=== PATIENT | female | born 1950 | race Caucasian/White ===

== ENCOUNTER 2018-06-24 19:55 | Outpatient (REF) | payer MEDICARE, OTHER, SELFPAY ==
[2018-06-24 21:14] LABS: ALT 31 U/L (12-78); AST 23 U/L (15-37); Albumin 3.6 g/dL (3.4-5.0); Alkaline Phosphatase 77 U/L (46-116); Anion Gap 8.3 mmol/L (3-11); BUN 11 mg/dL (7-18); Bilirubin, Total 0.4 mg/dL (0.2-1.0); CO2 26.7 mmol/L (21.0-32.0); CREATININE 0.67 mg/dL (0.55-1.02); Calcium 8.6 mg/dL (8.5-10.1); Chloride 104 mmol/L (98-107); Glucose 97 mg/dL (70-100); Potassium 3.7 mmol/L (3.5-5.1); Sodium 139 mmol/L (136-145)
== END 2018-06-24 20:15 ==
LOC: NCHCN 19:55
PROVIDERS: PCP Family Medicine; Visit Provider Family Medicine
DX: R10.9 Unspecified abdominal pain (principal)
CPT/HCPCS: 80053

== ENCOUNTER 2018-11-11 13:35 | Outpatient (REF) | payer MEDICARE, OTHER, SELFPAY ==
--- NOTE | 2018-11-11 11:30 | PAPFT_PTH ---
PATIENT: Leny Lowe LOC: [facility] U#:[id number] AGE/SX: 68/F ROOM: RE11/11/[address]: BALBIR Nieto : 1950 BED: DIS: 11/11/2018 SPEC #: [id number] RECD: 11/11/18 17:37 STATUS: STAN REToni #: [id number] DARIELA: 11/11/18 11:[address]: Sandi Marrero DEPT: [facility] Cytology RECD BY: Holli Barbour ENTERED: 11/11/18 17:38 SP TYPE: PAPFT OTHR DR: Lidia Whelan V Tissues: 1 - CX/ENDOCX FOR PAP SMEARS Procedures: PAP THIN PREP/UVM Screening Comments: [id number]
== END 2018-11-11 13:55 ==
LOC: LBN 13:35
PROVIDERS: PCP Family Medicine; Visit Provider Nurse Practitioner Family
DX: Z12.4 Encounter for screening for malignant neoplasm of cervix (principal)
CPT/HCPCS: 88142

== ENCOUNTER → 2018-12-29 09:08 | Outpatient (BNVA) | payer MEDICARE, OTHER, SELFPAY | PROVIDERS: PCP Family Medicine; Visit Provider Student in an Organized Health Care Education/Training Program | DX: I47.1 Supraventricular tachycardia (principal); I10 Essential (primary) hypertension | CPT/HCPCS: 99213 ==

== ENCOUNTER 2019-01-13 00:20 | Outpatient (CLI) | payer MEDICARE, OTHER, SELFPAY ==
--- NOTE | 2019-01-13 07:45 | DI.MAMMO_ITS ---
SYMPTOM/DIAGNOSIS: SCREENING, Z12.31 MAMMOGRAMS: Mammograms were interpreted according to the usual protocol including computer analysis with CAD system, tomosynthesis and C view imaging. The breast tissue is of moderate radiodensity. There is no evidence of a mass. There are no suspicious calcifications. There has been no significant interval change when compared with prior images. IMPRESSION: No evidence of malignancy, category 1. Yearly screening mammography is recommended. Breast density, Category B. SA ASSESSMENT OF FINDINGS: Negative. Category 1. Patient will receive a letter notifying them of these results. BI-RADS category B. There are scattered areas of fibroglandular density.
== END 2019-01-13 00:40 ==
PROVIDERS: PCP Family Medicine; Visit Provider Nurse Practitioner Family
DX: Z12.31 Encounter for screening mammogram for malignant neoplasm of breast (principal)
CPT/HCPCS: 77063; 77067

== ENCOUNTER 2019-01-28 19:36 | Outpatient (REF) | payer MEDICARE, OTHER, SELFPAY ==
[2019-01-28 19:38] LABS: HCT 44.5 % (36.0-46.0); HGB 14.5 g/dL (12.0-15.5); Mean Corp. HGB Concentration 32.6 g/dL (32.0-36.0); Mean Corpuscular Hemoglobin 28.4 pg (27.0-33.0); Mean Corpuscular Volume 87.3 fL (80-95); Mean Platelet Volume 10.4 fL (8.0-11.0); Platelet Count 317 x1000/uL (130-400); RBC Distribution Width 13.2 % (11.7-14.6); White Blood Cell Count 9.85 k/cumm (4.4-10.8)
[2019-01-28 19:57] LABS: ALT 24 U/L (12-78); AST 17 U/L (15-37); Albumin 3.7 g/dL (3.4-5.0); Alkaline Phosphatase 96 U/L (46-116); Anion Gap 9.5 mmol/L (3-11); BUN 20 mg/dL (7-18); Bilirubin, Total 0.3 mg/dL (0.2-1.0); C-Reactive Protein 0.36 mg/dL (0.0-0.3); CO2 30.5 mmol/L (21.0-32.0); CREATININE 0.73 mg/dL (0.55-1.02); Calcium 9.3 mg/dL (8.5-10.1); Chloride 101 mmol/L (98-107); Glucose 104 mg/dL (70-100); Potassium 3.5 mmol/L (3.5-5.1); Sodium 141 mmol/L (136-145); TSH (W/Ref FT4) 0.79 uIU/mL (0.358-3.74); Total Protein 7.2 g/dL (6.4-8.2)
[2019-01-28 21:09] LABS: ESR 12 MM/HR (0-30)
== END 2019-01-28 19:56 ==
LOC: NCHCN 19:36
PROVIDERS: PCP Family Medicine; Visit Provider Family Medicine
DX: R10.9 Unspecified abdominal pain (principal); R19.7 Diarrhea, unspecified
CPT/HCPCS: 80053; 85027; 85652; 84443; 86140

== ENCOUNTER 2019-05-03 10:11 | Outpatient (REF) | payer MEDICARE, OTHER, SELFPAY ==
[2019-05-03 21:54] LABS: Hemoglobin A1C 5.8 % (4.5-6.2)
[2019-05-03 22:21] LABS: Vitamin B12 599 pg/mL (193-986)
== END 2019-05-03 10:31 ==
LOC: NCHCN 10:11
PROVIDERS: PCP Family Medicine; Visit Provider Family Medicine
DX: R53.83 Other fatigue (principal); R60.0 Localized edema; R53.1 Weakness; R73.09 Other abnormal glucose
CPT/HCPCS: 82607; 83036

== ENCOUNTER 2019-06-21 14:29 | Outpatient (CLI) | payer MEDICARE, OTHER, SELFPAY ==
[2019-06-21 15:04] LABS: Mean Corp. HGB Concentration 33.3 g/dL (32.0-36.0); Mean Corpuscular Volume 87.1 fL (80-95); Mean Platelet Volume 9.7 fL (8.0-11.0); Platelet Count 319 x1000/uL (130-400); RBC 4.82 m/cumm (4.00-5.20); RBC Distribution Width 13.4 % (11.7-14.6); White Blood Cell Count 10.59 k/cumm (4.4-10.8)
[2019-06-21 15:43] LABS: D-Dimer 577 ng/mlFEU (<500)
[2019-06-21 15:47] LABS: ESR 13 mm/hr (0-30)
[2019-06-21 16:02] LABS: BUN 18 mg/dL (7-18); CREATININE 0.76 mg/dL (0.55-1.02); Chloride 102 mmol/L (98-107); Glucose 98 mg/dL (70-100); Potassium 3.5 mmol/L (3.5-5.1); Sodium 140 mmol/L (136-145); TSH (W/Ref FT4) 0.62 uIU/mL (0.36-3.74)
[2019-06-21 16:11] LABS: C-Reactive Protein 0.24 mg/dL (0.0-0.3)
[2019-06-22 11:00] LABS: Lyme Ab w Rflx to Lyme Confirm Negative
[2019-06-23 21:45] LABS: Anaplasma phagocytophilum Negative (Negative); B. miyamotoi PCR Negative (Negative); Babesia divergens/MO-1 Negative (Negative); Babesia duncani Negative (Negative); Babesia microti Negative (Negative); Ehrlichia chaffeensis Negative (Negative); Ehrlichia ewingii/canis Negative (Negative); Ehrlichia muris eauclairensis Negative (Negative)
== END 2019-06-21 14:49 ==
PROVIDERS: PCP Family Medicine; Visit Provider Family Medicine
DX: R06.00 Dyspnea, unspecified (principal); R09.02 Hypoxemia; R53.83 Other fatigue; S20.361A Insect bite (nonvenomous) of right front wall of thorax, initial encounter
CPT/HCPCS: 36415; 80048; 85027; 85652; 87798; 84443; 85379; 86140; 86618

== ENCOUNTER 2019-06-23 03:48 | Outpatient (CLI) | payer MEDICARE, OTHER, SELFPAY ==
[2019-06-23] MEDS: Omnipaque 350 MG/ML 50 ML BTL IJ (08:42)
[2019-06-23] MEDS: Breeza Beverage 473 ML BTL PO ×2 (08:42→08:43)
[2019-06-23] MEDS: Omnipaque 350 MG/ML 100 ML BTL IJ (09:36)
--- NOTE | 2019-06-23 09:37 | DI.CT_ITS ---
SYMPTOM/DIAGNOSIS: ABDOMINAL PAIN R10.9 CT ANGIOGRAPHY CHEST: ABDOMINAL AND PELVIC CT 06/23 CT angiography was performed with multi slice acquisition and multi planar and 3D reconstruction. CT angiography of the chest was performed with additional scanning of the abdomen and pelvis with intravenous infusion of 100 cc Omnipaque 350. 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 No evidence of dissection or aneurysm. No evidence of pulmonary embolic disease, The lungs are clear except for some linear radiodensities in the right lung base which may represent scarring or atelectasis. No pleural effusion. No mediastinal or hilar adenopathy. Incidental calcified lymph nodes noted in left hilum consistent with healed granulomatous disease. No abdominal aortic aneurysm or dissection. Major branch arteries appear intact. Liver, spleen and pancreas are unremarkable except for calcifications in liver and spleen consistent with healed granulomatous disease. There are presumed surgical sutures noted at the esophageal hiatus. There is a small recurrent hiatal hernia. No evidence of obstruction. Adrenals and kidneys appear normal. No abdominal or pelvic adenopathy. Prior cholecystectomy noted. No biliary dilatation seen. Appendix is normal No evidence of diverticulitis or bowel obstruction. 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 There are bilateral fat containing lower abdominal ventral hernias. These lie laterally. There is also complex periumbilical ventral hernia which is predominantly fat containing. A small knuckle of nonobstructed bowel is noted inferiorly. CONCLUSION: 1. No evidence of pulmonary embolic disease. 2. Small apparent recurrent hiatal hernia, presumed prior hiatal hernia repair. 3. Multiple ventral hernias as described above, no evidence of bowel obstruction.
== END 2019-06-23 04:08 ==
PROVIDERS: PCP Family Medicine; Visit Provider Family Medicine
DX: R10.9 Unspecified abdominal pain (principal); K44.9 Diaphragmatic hernia without obstruction or gangrene; K43.9 Ventral hernia without obstruction or gangrene; R91.8 Other nonspecific abnormal finding of lung field; Z98.890 Other specified postprocedural states
CPT/HCPCS: 71275; 74177; J3490; Q9967

== ENCOUNTER → 2019-07-13 14:17 | Outpatient (BNVA) | payer MEDICARE, OTHER, SELFPAY | PROVIDERS: PCP Family Medicine; Visit Provider Psychiatry & Neurology Neurology | DX: Q68.1 Congenital deformity of finger(s) and hand (principal); M54.41 Lumbago with sciatica, right side; M54.42 Lumbago with sciatica, left side; G89.29 Other chronic pain; R20.2 Paresthesia of skin; R53.1 Weakness; I10 Essential (primary) hypertension | CPT/HCPCS: 99215; 99354 ==

== ENCOUNTER → 2019-07-14 00:25 | Outpatient (CLI) | payer MEDICARE, OTHER, SELFPAY ==
--- NOTE | 2019-07-14 08:30 | ETT_ITS ---
*[facility]* *[facility]* [address] [place] [address] Stress Electrocardiography Nate protocol Date of study: 07/14/2019 *PATIENT PRESENTATION* Height: 170.2cm (67in) Blood Pressure: Weight: 100kg (220lb) BSA: 2.21m^2 Ordering physician: Lidia Whelan V Impressions: - Normal study after maximal exercise. - PVCs and PACs noted throughout. Recommendations: Suggest getting 24 hour Holter and echo (if not done). Indication: R06.00. History: REASON FOR TESTING: FOR THE PAST SEVERAL MONTHS, THE PATIENT HAS BEEN EXPERIENCING CHEST PRESSURE , HEAVINESS, OCCASIONAL PAIN, PALPITATIONS AND DIZZINESS. PT STATES THAT SHE HAS HAD SVT IN THE PAST, BUT THAT THIS FEELS DIFFERENT. PT REPORTS A SLIGHT SQUEEZING CHEST PRESSURE, 2/10 AT THE TIME OF TESTING, AND IS ANXIOUS REGARDING THIS TEST. PMH: SVT, HYPERTENSION, HYPOTHYROIDISM, ASTHMA, DEGENERATIVE DISK DISEASE. 7 ABDOMINAL SURGIES, 6 FOR HERNIAS. FAMILY HX: SIBLINGS- HYPERTENSION. MOTHER- CHF. SMOKING: NEVER SMOKER. EXCERCISE: GARDENING, SWIMMING, AND SNOWSHOEING. PT REPORTS NO REAL EXCERCISE IN THE PAST FEW WEEKS DUE TO ANXIETY OVER THESE SYMPTOMS. PMH: Asthma. Risk factors: Family history of coronary artery disease. Hypertension. Obesity. Dyslipidemia. Cholesterol: 245mg/dl. HDL: 71mg/dl. LDL: 156mg/dl. Triglycerides: 152mg/dl. ALLERGIES: BACTRIM, ADHEXIVE, PETROLATUM, PREDNISONE, SULFA, LATEX, IBUPROFEN, HONEY BEE VENOM. MEDICATIONS: MULTIVITAMIN 1 DAILY, MELATONIN 5 MG CTOBACILLUS 3,000 MMU CELLS DAILY, HYDROCODONE 5MG ACETAMINOPHEN 300 MG 1 HS PRN, HYDROCHLOROTHIAZIDE 25 MG DAILY, ADVAIR 100/50 DISKUS 1 PUFF BID, EPINEPHRINE 0.3 MG IM PRN, DILTIAZEM HCL ER120 MG DAILY, VIT. C 500 MG DAILY,ALBUTEROL SULFATE 1 PUFF Q4H PRN. Protocol: Nate protocol. Baseline ECG: LAST EKG 09/11/17- SINUS RHYTHM, HR 79. TODAY'S EKG-SINUS RHYTHM, HR 61. Stress protocol: + +---+ +---+ !Stage !HR !BP (mmHg) !Sat! + +---+ +---+ !Baseline supine !61 !158/96 (117) !---! + +---+ +---+ !Baseline standing !75 !152/100 (117)!96%! + +---+ +---+ !Stage I; 1.7mph, 10degrees; 3 min !128!164/96 (119) !96%! + +---+ +---+ !Stage II; 2.5mph, 12degrees; 3 min!145!184/98 (127) !96%! + +---+ +---+ !Recovery; 1 min !124!192/100 (131)!---! + +---+ +---+ !Recovery; 3 min !82 !182/90 (121) !---! + +---+ +---+ !Recovery; 6 min !78 !154/90 (111) !---! + +---+ +---+ * Stress results: The rate-pressure product for the peak heart rate and blood pressure was 31117yx Hg/min. Stress ECG: EXCERCISE TESTING ENDED IN 6 MINS, 58 SECS DUE TO FATIGUE AND DYSPNEA. MAX HR WAS 176, 115% OF TARGET. HYPERTENSIVE BLOOD PRESSURE RESPONSE. METS: 8.56 ECTOPY: MULTIFOCAL PVC'S WITH RARE APC'S NOTED. THE PVC'S WERE PREVALENT THROUGHOUT TESTING. ANGINA: PT REPORTED SLIGHT SQUEEZING CHEST PRESSURE,2/10 BEFORE TESTING STARTED, AND THESE SYMPTOMS DID NOT CHANGE DURING EXCERCISE. ISCHEMIA: NO ISCHEMIC CHANGES NOTED. FUNCTIONAL CAPACITY: ABOVE AVERGE CAPACITY. Study data: Chelsea Fuentes MD supervised and was readily available during the procedure. This study was interpreted by [facility]. Study status: Routine. Consent: The risks, benefits, and alternatives to the procedure were explained to the patient and informed consent was obtained. Procedure: Initial setup. A baseline ECG was recorded. Surface ECG leads and manual cuff blood pressure measurements were monitored. Heart sounds: Normal. Lung sounds: Normal. Treadmill exercise testing was performed using the Nate protocol. Study completion: The patient tolerated the procedure well and was discharged from the lab. Discharge: The patient left the laboratory in stable condition. Birthdate: Patient birthdate: 1950. Sex: Gender: female. Study date: Study date: 07/14/2019. Study time: 00:01 AM. Signature Documentation: The Stress ECG portion of this study was interpreted by Chelsea Fuentes MD. Electronically signed by Chelsea Fuentes 07/14/2019 09:30
== END ==
PROVIDERS: PCP Family Medicine; Visit Provider Family Medicine
DX: R07.89 Other chest pain (principal); R00.2 Palpitations; R42 Dizziness and giddiness; I10 Essential (primary) hypertension; E03.9 Hypothyroidism, unspecified; E78.5 Hyperlipidemia, unspecified; R06.00 Dyspnea, unspecified
CPT/HCPCS: 93016; 93018; 93017

== ENCOUNTER 2019-07-25 08:00 | Outpatient (CLI) | payer MEDICARE, OTHER, SELFPAY | END 2019-07-25 08:20 | PROVIDERS: PCP Family Medicine; Visit Provider Internal Medicine Cardiovascular Disease | DX: I47.1 Supraventricular tachycardia (principal); Z01.810 Encounter for preprocedural cardiovascular examination; I10 Essential (primary) hypertension | CPT/HCPCS: 99204; 99215; 93005; 93010 ==

== ENCOUNTER → 2019-07-26 11:55 | Outpatient (BNVA) | payer MEDICARE, OTHER, SELFPAY | PROVIDERS: PCP Family Medicine; Referring Provider Family Medicine; Visit Provider Psychiatry & Neurology Neurology | DX: M54.41 Lumbago with sciatica, right side (principal); M54.42 Lumbago with sciatica, left side; G89.29 Other chronic pain; G56.03 Carpal tunnel syndrome, bilateral upper limbs; R20.2 Paresthesia of skin; R53.1 Weakness | CPT/HCPCS: 95923; 99214 ==

== ENCOUNTER 2019-07-27 01:24 | Outpatient (CLI) | payer MEDICARE, OTHER, SELFPAY ==
--- NOTE | 2019-07-27 07:30 | DI.US_ITS ---
APPROVED REPORT EXAM: Comprehensive 2D, Doppler, and color-flow Echocardiogram Patient Location: Out-Patient Clinical Product Manager: Mary Nam [facility] ([place]) Rhythm: Bradycardia Indications: arrythmia, pre op evaluation z01.818 Left Ventricle The left ventricle is normal size. The left ventricular systolic function is normal. The left ventric ular ejection fraction is within the normal range. Mild concentric left ventricular hypertrophy. Ther e is normal LV segmental wall motion. Diastolic function is indeterminate LVEF is 60-65%. Right Ventricle Right ventricle is mildly dilated. The right ventricular systolic function is normal. Atria The left atrium size is normal. The right atrium size is normal. Aortic Valve The Aortic valve is sclerotic. Aortic valve is trileaflet. There is no aortic valvular stenosis. No a ortic regurgitation is present. Mitral Valve Mitral valve leaflets are thickened. No evidence of mitral valve stenosis. Trace mitral regurgitation . Tricuspid Valve Tricuspid valve leaflets are thickened but open well. Mild to moderate tricuspid regurgitation. TR pe ak gradient =34 mmHg The RVSP is between 35 and 40 Pulmonic Valve The pulmonary valve is normal in structure. Mild pulmonic regurgitation. Great Vessels The aortic root is normal in size. The IVC is normal in size and collapses >50% with inspiration. Pericardium no pericardial effusion noted. There is no pleural effusion. 2D Dimensions IVSd 1.2 cm F: 0.6-1.0 LA Volume Index A4C 33.0 mL/m2 PWd 1.2 cm F: 0.6 - 1.0 LA Area A4C 21.0 cm2 LVDd 4.5 cm F: 3.9 - 5.3 LVDs 3.1 cm F: 2.2 - 3.5 Aortic Root 3.4 cm F: 2.7 - 3.3 RA Area A4C 18.0 cm2 LVOT 1.9 cm (M/F) 1.5-2.5 Ascending Aorta 3.4 cm F: 2.3 - 3.1 LVEF (Garza's) 62.3 % F: 54 - 74 FS 30.5 % LV Diastology E Decel Time 216.0 (160-240 msec) E/A Ratio 0.8 MED E' 0.1 (<0.07 m/s) LV E/e MED 13.3 (>14) LAT E' 0.1 (<0.1 m/s) LV E/e LAT 10.3 (>14) Aortic Valve LVOT Peak Kiko. 1.4 m/s LVOT Peak Gr. 7.5 mmHg LVOT Mean Gr. 3.7 mmHg LVOT VTI 0.3 m SAMARA (VTI) 2.1 (2.5-4.5 cm2) SAMARA (VTI) Index 1.0 cm/m2 Mitral Valve MV A Velocity 1.1 (0.4-1.3 m/s) E/A Ratio 0.8 MV Decel. Time 215.8 (160-240 msec) MV PHT 62.6 msec MVA PHT 3.5 cm2 Pulmonary Valve RI End VMAX 111.2 cm/s Tricuspid Valve TR P. Velocity 2.9 m/s TR P. Gradient 34.0 mmHg Conclusion Left Ventricle : The left ventricle is normal size. Mild concentric left ventricular hypertrophy. Saundra stolic function is indeterminate The left ventricular systolic function is normal. There is normal L V segmental wall motion. LVEF is 60-65%. Right Ventricle : Right ventricle is mildly dilated. The right ventricular systolic function is isi l. Atria : The left atrium size is normal. The right atrium size is normal. Aortic Valve : The Aortic valve is sclerotic. Aortic valve is trileaflet. No aortic regurgitation is present. There is no aortic valvular stenosis. Mitral Valve : Mitral valve leaflets are thickened. Trace mitral regurgitation. No evidence of mitral valve stenosis. Tricuspid Valve : Tricuspid valve leaflets are thickened but open well. Mild to moderate tricuspid r egurgitation. TR peak gradient =34mmHg The RVSP is between 35-40mmHg Pulmonic Valve : The pulmonary valve is normal in structure. Mild pulmonic regurgitation. Great Vessels : The aortic root is normal in size. The IVC is normal in size and collapses >50% with inspiration. Pericardium : no pericardial effusion noted.
== END 2019-07-27 01:44 ==
PROVIDERS: PCP Family Medicine; Visit Provider Internal Medicine Cardiovascular Disease
DX: I49.9 Cardiac arrhythmia, unspecified (principal); I51.7 Cardiomegaly; I35.8 Other nonrheumatic aortic valve disorders; I34.8 Other nonrheumatic mitral valve disorders; Z01.818 Encounter for other preprocedural examination
CPT/HCPCS: 93306

== ENCOUNTER 2019-08-25 09:13 | Outpatient (CLI) | payer MEDICARE, OTHER, SELFPAY ==
--- NOTE | 2019-08-25 15:34 | DI.RAD_ITS ---
EXAM: XR ABDOMEN FLAT UPRIGHT CLINICAL HISTORY: ABDOMINAL PAIN COLIC, R10.83 TECHNIQUE: COMPARISON: No exams were available for comparison FINDINGS: Three views of the abdomen were obtained. No gross free intraperitoneal air identified on the uprigh t view. Bowel gas pattern is within normal limits. Vascular clips are noted in the right upper quad rant consistent with prior cholecystectomy. IMPRESSION: No evidence of acute process.
== END 2019-08-25 09:33 ==
PROVIDERS: PCP Family Medicine; Visit Provider Family Medicine
DX: R10.84 Generalized abdominal pain; Z90.49 Acquired absence of other specified parts of digestive tract
CPT/HCPCS: 74019

== ENCOUNTER 2019-08-30 14:17 | Outpatient (REF) | payer MEDICARE, OTHER, SELFPAY ==
[2019-08-30 21:47] LABS: HGB 14.2 g/dL (12.0-15.5); Mean Corpuscular Hemoglobin 28.6 pg (27.0-33.0); Mean Corpuscular Volume 86.7 fL (80-95); Mean Platelet Volume 10.7 fL (8.0-11.0); Platelet Count 308 x1000/uL (130-400); RBC 4.96 m/cumm (4.00-5.20); RBC Distribution Width 12.9 % (11.7-14.6); White Blood Cell Count 7.45 k/cumm (4.4-10.8)
[2019-08-30 22:05] LABS: ALT 22 U/L (14-59); AST 12 U/L (15-37); Albumin 3.8 g/dL (3.4-5.0); Alkaline Phosphatase 63 U/L (46-116); Anion Gap 11.7 mmol/L (3-11); BUN 8 mg/dL (7-18); Bilirubin, Total 0.4 mg/dL (0.2-1.0); C-Reactive Protein 0.19 mg/dL (0.0-0.3); CO2 27.3 mmol/L (21.0-32.0); CREATININE 0.85 mg/dL (0.55-1.02); Calcium 8.7 mg/dL (8.5-10.1); Chloride 100 mmol/L (98-107); Glucose 89 mg/dL (70-100); Potassium 3.6 mmol/L (3.5-5.1); Sodium 139 mmol/L (136-145)
[2019-08-30 22:44] LABS: ESR 10 mm/hr (0-30)
== END 2019-08-30 14:37 ==
LOC: NCHCN 14:17
PROVIDERS: PCP Family Medicine; Visit Provider Family Medicine
DX: R10.84 Generalized abdominal pain (principal)
CPT/HCPCS: 80053; 85027; 85652; 86140

== ENCOUNTER 2019-09-06 01:07 | Outpatient (CLI) | payer MEDICARE, OTHER, SELFPAY ==
[2019-09-06] MEDS: Omnipaque 350 MG/ML 50 ML BTL IJ (08:12)
[2019-09-06] MEDS: Breeza Beverage 473 ML BTL PO (08:12)
[2019-09-06] MEDS: Omnipaque 350 MG/ML 100 ML BTL IJ (09:01)
[2019-09-06] MEDS: Normal Saline Flush 10 ML SYR IVP (09:04)
--- NOTE | 2019-09-06 09:06 | DI.CT_ITS ---
EXAM: CT ABDOMEN PELVIS W CLINICAL HISTORY: ABD PAIN COLIC, R10.83 TECHNIQUE: Images were performed from the lung bases through the ischial tuberosities after IV and o ral contrast. COMPARISON: CT CHEST PE ABD PELVIS W from 06/23/2019 FINDINGS: The lung bases are clear. Liver shows mild enlargement and fatty infiltration. The patient is stat us post cholecystectomy. There is no biliary dilatation. Scattered calcifications are again noted i n the liver and spleen. No renal calculi or hydronephrosis is seen. Again noted are midline abdomin al wall hernias. There is no obstruction of bowel loops extending through the lower portion of the h ernia. There is a normal quantity of stool. The appendix appears normal. There is a fibroid again noted in the uterus. The bladder and ovaries are unremarkable. There are degenerative changes in th e spine. The aorta is normal in diameter. IMPRESSION: Stable appearance of midline abdominal wall hernias. No evidence of bowel obstruction.
== END 2019-09-06 01:27 ==
PROVIDERS: PCP Family Medicine; Visit Provider Family Medicine
DX: R10.83 Colic (principal); R10.9 Unspecified abdominal pain; K76.0 Fatty (change of) liver, not elsewhere classified; R16.0 Hepatomegaly, not elsewhere classified; D25.9 Leiomyoma of uterus, unspecified
CPT/HCPCS: 74177; J3490; Q9967

== ENCOUNTER 2019-10-15 09:14 | Emergency (ER) | payer MEDICARE, OTHER, SELFPAY ==
[2019-10-15 09:21] VITALS: BP 150/83; PULSE 82; RESP 16; TEMP 36.5; O2SAT 99
[2019-10-15 09:33] VITALS: RESP 16
--- NOTE | 2019-10-15 09:33 | ED.GENADUL_ITS ---
Discharge Plan Disposition Patient Disposition: HOME Condition: Stable Discharge Details Chief Complaint: Vascular Clinical Impression: Right leg pain, History of sciatica, Elevated d-dimer Primary Care Provider: Lidia Whelan V ED Provider: Mellisa Garcia Home Meds and New Rx's Prescriptions: New Eliquis 5 mg tablet 10 mg PO BID 2 Days Qty: 8 RF: 0 methocarbamol 500 mg tablet 500 mg PO QID PRN (Reason: muscle spasm) Qty: 14 RF: 0 Continued hydrocodone-acetaminophen [Vicodin] 5-300 mg tablet 1 tab PO HS PRNRF: 0 Adult Probiotic 3 billion cell capsule 3,000 mmu cells PO DAILY RF: 0 diltiazem HCl 60 mg capsule,extended release 12 hr 120 mg PO DAILY RF: 0 epinephrine 0.3 MG/0.3 ML auto-injector 0.3 mg IM PRN RF: 0 albuterol sulfate 8.5 GM HFA aerosol inhaler 1 puff Inhalation Q4H PRN Qty: 1 RF: 0 fluticasone propion-salmeterol [Advair Diskus] 1 EACH blister with device 1 puff Inhalation BID RF: 0 multivitamin [One Daily Multivitamin] 1 EACH tablet 1 ea PO DAILY RF: 0 melatonin 5 MG tablet 5 mg PO HS RF: 0 hydrochlorothiazide 25 MG tablet 25 mg PO DAILY AM RF: 0 Discharge Instructions Instructions: Apixaban (By mouth), Sciatica (ED), Deep Venous Thrombosis (ED), Leg Pain (ED) Additional Instructions: Your d-dimer blood test was elevated which could be indicative of a blood clot in your leg. It is a sensitive blood test but is not specific in that you may not have a blood clot in your leg. This blood test could also be elevated post surgery in your case. Take the blood thinner as directed for the next 2 days. Call the radiology department this weekend to schedule an appointment for a right lower extremity ultrasound on Thursday morning. Continue your Vicodin as needed and directed for pain. Take the muscle relaxer as needed and directed for pain or muscle spasm. Alternate ice and heat several times daily for 20 minutes at a time. Follow-up with your primary care doctor within the next week for reevaluation. Return to the emergency department if you develop any worsening or new concerning symptoms such as chest pain or shortness of breath. Discharge Data Discharge Physician: Mellisa Garcia Medical Decision Making [phone] -- 69-year-old female who is 4 weeks status post an abdominal wall reconstruction for recurrent hernias at [facility] [place] presents for right leg pain for the past month, worse since yesterday. Pain worse with sitting. She does have a history of sciatica and states this has felt similar to sciatica for the past month but is more concerned about possible blood clot since worsening symptoms yesterday. Pain in right posterior thigh, right posterior knee and right posterior lateral leg. She is tender to palpation her right posterior thigh and knee. Negative Homans sign. She is neurovascularly intact. Leg is normal to inspection. No ligamentous instability. No bony deformity. Discussed with patient that based on her symptoms and presentation, I feel that this is most likely musculoskeletal or sciatica. As we are unable to obtain an ultrasound on the weekend, will obtain a d-dimer. It was discussed with patient that this could be false positive or negative. Patient states she cannot take ibuprofen or steroids. Discussed that we may not have significant improvement in pain as we have limited treatment options. Will give a dose of Valium, patient's dose of regular Vicodin as well as place Lidoderm patch. 1120 --d-dimer elevated at 1200. Discussed that this could be elevated postsurgically. Patient had declined Valium due to concern of taking with Vicodin initially. She is now taking Valium at this time. She admits to some relief with Lidoderm patch. Discussed with patient that we can treat with Eliquis over the weekend with plan for her to return on Thursday for Doppler ultrasound of her right lower extremity and she is agreeable with this plan. We will also send a prescription for Robaxin. An order form for right lower extremity ultrasound was completed. Patient was advised to call radiology over the weekend to schedule this appointment for . She was advised to return here at any time if she develops any chest pain or shortness of breath or any other concerns. Medical Records Medical records reviewed: Yes I reviewed the patient's medical records. Lab Data Lab results reviewed: Yes I reviewed the patient's lab results. Labs: Laboratory Tests Range/Units 10/15/19 10:06 D-Dimer (<500) ng/mlFEU 1210 H HPI General Mode of arrival: ambulatory . Date/Time Provider Initiated Documentation: 10/15/19 09:22 . Limitations to Documentation: no limitations . Information obtained by: patient . History of Present Illness 69 year old F presents to the emergency department with the chief complaint of R leg pain , Quality is described as aching and sharp, and is localized to the lower extremity (R). Patient reports radiation to (radiates from R posterior thigh to R lower leg). Patient started experiencing this month(s) (1) and it has been constant. No relieving factors improve symptom(s), Other factors that worsen symptoms (sitting) . Patient notes denies chest pain, cough, diaphoresis, fever/chills, headaches, loss of appetite, malaise, nausea/vomiting, rash, seizure, shortness of breath, syncope and weakness. Patient did receive the following treatments prior to arrival, other (vicodin) Related Data Home Medications Medication Instructions Recorded Confirmed albuterol sulfate 1 puff INHALATION Q4H PRN #1 12/06/13 10/15/19 inhaler epinephrine 0.3 mg IM PRN 12/06/13 10/15/19 hydrochlorothiazide 25 mg PO DAILY AM 09/11/17 10/15/19 fluticasone propion-salmeterol 1 puff INHALATION BID disk 11/26/17 10/15/19 [Advair Diskus] multivitamin [One Daily 1 ea PO DAILY 12/16/17 07/26/19 Multivitamin] melatonin 5 mg PO HS 04/05/18 10/15/19 hydrocodone 5 mg-acetaminophen 300 1 tab PO HS PRN tab 11/11/18 10/15/19 mg tablet lactobacillus combination no.8 3 3,000 mmu cells PO DAILY 11/11/18 10/15/19 billion cell capsule diltiazem HCl 60 mg 120 mg PO DAILY tab-cap 12/29/18 10/15/19 capsule,extended release 12 hr apixaban [Eliquis] 10 mg PO BID 2 Days #8 tab 10/15/19 methocarbamol 500 mg PO QID PRN #14 tab 10/15/19 Previous Rx's Medication Instructions Recorded apixaban [Eliquis] 10 mg PO BID 2 Days #8 tab 10/15/19 methocarbamol 500 mg PO QID PRN #14 tab 10/15/19 Allergies Allergy/AdvReac Type Severity Reaction Status Date / Time sulfamethoxazole Allergy Severe Verified 10/15/19 09:26 [From Bactrim] trimethoprim [From Bactrim] Allergy Severe Verified 10/15/19 09:26 adhesive Allergy Intermediate Skin Rash Verified 10/15/19 09:26 petrolatum,white Allergy Intermediate head ache Verified 10/15/19 09:26 [From Petroleum Jelly] & difficulty breathing prednisone Allergy Intermediate Verified 10/15/19 09:26 sertraline HCl [From Zoloft] Allergy Intermediate Verified 10/15/19 09:26 Sulfa (Sulfonamide Allergy Intermediate Hives Verified 10/15/19 09:26 Antibiotics) latex Allergy Mild Skin Rash Verified 10/15/19 09:26 venom-honey bee Allergy Verified 10/15/19 09:26 ibuprofen AdvReac Intermediate Nausea Verified 10/15/19 09:26 General Stated Complaint: Vascular MARC: 3 Review of Systems All systems reviewed & are unremarkable except as noted in HPI and below Constitutional Constitutional: Reports as per HPI, Denies chills and Denies fever(s) Eyes Eyes: Denies blurry vision ENT Ears, Nose, Mouth, and Throat: Denies dizziness, Denies sore throat and Denies throat swelling Cardiovascular Cardiovascular: Denies chest pain and Denies dyspnea Respiratory Respiratory: Denies cough and Denies dyspnea Gastrointestinal Gastrointestinal: Denies abdominal pain, Denies diarrhea and Denies vomiting Genitourinary Genitourinary: Denies hematuria and Denies dysuria Musculoskeletal Musculoskeletal: Denies back pain, Denies numbness and Reports other (Right leg pain extending from R thigh to R lateral distal leg ) Integumentary/Breasts Skin/Breast: Denies lesions and Denies rash Neurologic Neurologic: Denies dizziness, Denies focal weakness and Denies numbness Allergic/Immunologic Allergic/Immunologic: Denies throat swelling [facility] Medical History Acquired hypothyroidism (Acute 12/20/15) Asthma (Acute) Chronic low back pain with bilateral sciatica (Acute) Degenerative disk disease (Acute 02/09/15) RLQ pain and RLE radiculopathy Essential hypertension (Acute 12/20/15) Family history of breast cancer (Acute 12/08/14) Fibromyalgia (Acute) GERD (gastroesophageal reflux disease) (Chronic) Hyperlipidemia (Acute) IBS (irritable bowel syndrome) (Chronic) ERMA (obstructive sleep apnea) (Chronic) ? unsure on dx Recurrent ventral hernia (Acute) SVT (supraventricular tachycardia) (Acute 12/20/15) Vitamin D deficiency (Acute) Surgical History Cholecystectomy (~2007) History of abdominal hernia (Acute) multiple surgeries; 2 in 2018 Samanta Fundoplication (~2007) x2 Repair of inguinal hernia (09/14/15) Right - done at [facility] S/P carpal tunnel release (Acute) Family History Mother Arthritis Heart disease Father Prostate cancer Sister Diabetes Breast cancer Social History Smoking/Tobacco Use Status: Never Alcohol Intake: current Alcohol Intake frequency: other Details: Very Rarely Drug use: Never Details: cbd oil 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, 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, 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 Do you feel safe in your relationship?: Yes History History 1 Para 0 Hx # Term Pregnancies Multiple births Hx # Pregnancies Ectopic pregnancies AB induced Hx Number of Living Children AB spontaneous Exam Const General: cooperative, healthy appearing and no acute distress HENMT Head: normal to inspection Face and sinus: normal facial exam Eyes General: appearance normal, both eyes and all related structures EOM: EOM intact bilaterally Neck Neck: normal visual inspection and No submandibular swelling Lymphatic: no lymphadenopathy noted Chest Chest: normal inspection of the chest and no tenderness Resp Effort & Inspection: normal respiratory effort and able to speak in complete sentences Auscultation: clear to auscultation bilaterally Cardio Rate: regular rate Rhythm: regular rhythm GI Inspection: normal to inspection Palpation: soft, not firm, not rigid and nontender Auscultation: normal bowel sounds Skin General skin exam: no rashes or lesions noted Neuro General: alert, awake and oriented x3 Cognition: normal cognition Speech: speech normal Motor: muscle tone normal throughout Sensory Exam: no sensory deficits noted Extrem General: no calf tenderness bilaterally and no edema Other: Right lower extremity normal to inspection. No pain with range of motion at right hip, right knee or right ankle. Negative Homans sign. Skin normal to inspection. No evidence of ecchymosis, erythema or edema. Right DP/PT pulses intact. Psych Appearance: grossly normal Mental Status: mental status grossly normal Speech and Movement: speech and movement normal Affect: normal affect Course Vital Signs Vital signs: Vital Signs Temperature 97.7 F 10/15/19 09:21 Pulse 82 10/15/19 09:21 Respiratory Rate 16 10/15/19 09:21 Blood Pressure 150/83 H 10/15/19 09:21 Pulse Oximetry 99 10/15/19 09:21 Temperature 97.7 F 10/15/19 09:21 Temperature Source Skin 10/15/19 09:21 Pulse 82 10/15/19 09:21 Respiratory Rate 16 10/15/19 09:21 Respiratory Effort Non-Labored 10/15/19 09:21 Blood Pressure 150/83 H 10/15/19 09:21 Blood Pressure Position Sitting 10/15/19 09:21 Pulse Oximetry 99 10/15/19 09:21 Oxygen Delivery Method Room Air 10/15/19 09:21 Oxygen Flow Rate 0 10/15/19 09:21 Pain Level 7 10/15/19 09:21
[2019-10-15] MEDS: Lidocaine 5% Patch 1 PATCH TP (10:00)
[2019-10-15] MEDS: HYDROcodone 5/Acetaminophen 325 TAB PO (10:06)
[2019-10-15 10:40] LABS: D-Dimer 1210 ng/mlFEU (<500)
[2019-10-15] MEDS: diazePAM 5 MG TAB PO (11:10)
[2019-10-15 11:18] VITALS: BP 145/93; PULSE 69; RESP 16; TEMP 36.7; O2SAT 95
[2019-10-15 11:45] VITALS: BP 145/93; PULSE 69; RESP 16; TEMP 36.7; O2SAT 95
== END 2019-10-15 11:44 | disposition home or self-care (01) ==
PROVIDERS: Emergency Provider Physician Assistant; PCP Family Medicine
DX: M54.31 Sciatica, right side (principal); R79.1 Abnormal coagulation profile; M79.604 Pain in right leg; I10 Essential (primary) hypertension
CPT/HCPCS: 36415; 99283; 85379

== ENCOUNTER 2019-10-17 00:59 | Outpatient (CLI) | payer MEDICARE, OTHER, SELFPAY ==
--- NOTE | 2019-10-17 08:31 | DI.US_ITS ---
EXAM: US LOWER EXTREMITY VENOUS RT CLINICAL HISTORY: RT LEG PAIN, ELEVATED D-DIMER, H/O ABD SURGERY TECHNIQUE: Right lower extremity venous ultrasound performed using grayscale, color-flow, and spectr al Doppler analysis. COMPARISON: US ECHOCARDIOGRAM from 07/27/2019 FINDINGS: The right common femoral, femoral and popliteal veins demonstrate normal compressibility, augmentatio n, and color Doppler. The posterior tibial veins are patent.The saphenofemoral junction is unremarkab le. No findings of a Salas cyst. IMPRESSION: No DVT. The findings were discussed with the emergency department on the date of the examination.
== END 2019-10-17 01:19 ==
PROVIDERS: PCP Family Medicine; Visit Provider Physician Assistant
DX: M79.604 Pain in right leg (principal); R79.1 Abnormal coagulation profile; I10 Essential (primary) hypertension; I47.1 Supraventricular tachycardia
CPT/HCPCS: 99214; 93971

== ENCOUNTER 2019-10-17 08:55 | Emergency (ER) | payer MEDICARE, OTHER, SELFPAY ==
[2019-10-17 08:56] VITALS: BP 139/89; PULSE 70; RESP 12; TEMP 36.5; O2SAT 97
--- NOTE | 2019-10-17 09:07 | ED.GENADUL_ITS ---
Discharge Plan Disposition Patient Disposition: HOME Condition: Stable Discharge Details Chief Complaint: Vascular Clinical Impression: Leg pain Primary Care Provider: Lidia Whelan V ED Provider: Fide Mcintosh Home Meds and New Rx's Prescriptions: Continued hydrocodone-acetaminophen [Vicodin] 5-300 mg tablet 1 tab PO HS PRNRF: 0 epinephrine 0.3 MG/0.3 ML auto-injector 0.3 mg IM PRN RF: 0 albuterol sulfate 8.5 GM HFA aerosol inhaler 1 puff Inhalation Q4H PRN Qty: 1 RF: 0 multivitamin [One Daily Multivitamin] 1 EACH tablet 1 ea PO DAILY RF: 0 melatonin 5 MG tablet 5 mg PO HS RF: 0 hydrochlorothiazide 25 MG tablet 25 mg PO DAILY AM RF: 0 No Action diltiazem HCl 60 mg capsule,extended release 12 hr 60 mg PO DAILY RF: 0 fluticasone propion-salmeterol [Advair Diskus] 100-50 mcg/dose blister with device 1 puff Inhalation BID PRNRF: 0 Discharge Instructions Instructions: Sciatica (ED), Leg Pain (ED) Additional Instructions: Please return immediately to the emergency department if you develop any new or worsening symptoms, if your condition does not improve as expected, or if you become otherwise concerned. It is extremely important that you call soon as possible to make an appointment to be seen in follow-up for this visit by your primary care doctor and physical therapist. Please attend your scheduled appointment with orthopedics in 2 weeks as planned. You may take Tylenol for your pain, however there is Tylenol in the Vicodin that you are currently taking. As you are taking Vicodin 3 times a day, do not take more than 3000 mg of additional Tylenol per 24-hour period. Referrals: Lidia Whelan MD [Primary Care Provider] - Srini Bauer PT [PHYSICAL THERAPIST] - Medical Decision Making Leny Lowe is a 69-year-old woman with a history of SVT, hyperlipidemia, hypertension, hypothyroidism, GERD, status post abdominal wall reconstruction 1 month ago who presented to the emergency department for follow-up ultrasound after being seen here 2 days ago for leg pain thought to be sciatica but found to have elevated d-dimer. On exam patient is well and nontoxic appearing. There is tenderness to palpation of the lateral right thigh, anterolateral right lower leg and posterior lower leg with worse pain and tenderness in the thigh. There are no overlying skin changes. Full range of motion of the hip and knee. Right lower extremity is neurovascularly intact. Normal gait. Exam ultrasound obtained prior to visit this morning is negative per radiology. Exam/history is not consistent with septic arthritis, myositis, other infectious process, cauda equina syndrome, epidural abscess/hematoma, other cord compression, other acute emergent life/limb threatening etiology of symptoms. Suspect sciatica. Will DC Eliquis, patient has no further dosages. Patient has previously seen physical therapy, plan to restart. Patient has outpatient follow-up with orthopedics in 2 weeks. I had a lengthy discussion with Patient regarding return to emergency department precautions, home care, and importance of outpatient follow-up with PCP, physical therapy, orthopedics. Pt verbalizes understanding of the plan and is amenable. Patient discharged to home with clear plan for outpatient follow- up. All questions were answered. Disposition decision was made weighing the risks and benefits of hospitalization versus outpatient treatment, the risk for further decompensation, and the patient's wishes. Medical Records Medical records reviewed: Yes I reviewed the patient's medical records. Imaging Data Radiologic Study: Attestation: I personally reviewed and interpreted this imaging study as follows: Radiologist's impression: EXAM: US LOWER EXTREMITY VENOUS RT CLINICAL HISTORY: RT LEG PAIN, ELEVATED D-DIMER, H/O ABD SURGERY TECHNIQUE: Right lower extremity venous ultrasound performed using grayscale, color-flow, and spectral Doppler analysis. COMPARISON: US ECHOCARDIOGRAM from 07/27/2019 FINDINGS: The right common femoral, femoral and popliteal veins demonstrate normal compressibility, augmentation, and color Doppler. The posterior tibial veins are patent.The saphenofemoral junction is unremarkable. No findings of a Salas cyst. IMPRESSION: No DVT. The findings were discussed with the emergency department on the date of the examination. HPI General Mode of arrival: ambulatory . Date/Time Provider Initiated Documentation: 10/17/19 09:07 . Limitations to Documentation: no limitations . Information obtained by: patient, RN notes reviewed and old records reviewed . HPI Narrative: Leny Lowe is a 69-year-old woman with a history of SVT, hyperlipidemia, hypertension, GERD, hypothyroidism, 1 month status post abdominal reconstruction for hernias presenting to the emergency department with leg pain. Patient reports that she has chronic low back pain. She reports that she has had several days of worsening pain in her right hip, right lateral thigh, and posterior to her right knee. Patient reports that she has also had some sharp pain in the lateral aspect of her right lower leg. She was seen here for this 10/15, where she had elevated d-dimer with no ultrasound available. She was started on Eliquis at that time, with plan to return to the emergency department this morning for ultrasound. Patient did have ultrasound this morning, which showed no DVT. Patient reports that she took her last dose of Eliquis this morning. Patient states that she is currently having pain in her lateral right thigh. She denies any swelling or rash of her legs bilaterally. Patient reports no worsening of pain since she was seen here 2 days ago. Patient was prescribed a muscle relaxant at that visit, which she reports she has not been taking because she does not like the way it makes her feel. She states that she has been eating and drinking as usual, no recent illness. Patient reports that she has been able to ambulate normally. Patient reports that pain is much worse with sitting, and is somewhat relieved by moving. Patient reports that she has an appointment with orthopedics in 2 weeks for right sided hip bursitis. Patient reports that she has been in physical therapy previously with [facility], but did stop when she had surgery. Patient reports that her chronic back pain has been at baseline and not worse. She denies any other pain. She denies fevers, shortness of breath, cough, vomiting, diarrhea, constipation, urinary hesitancy or urinary incontinence, numbness, weakness. Related Data Home Medications Medication Instructions Recorded Confirmed albuterol sulfate 1 puff INHALATION Q4H PRN #1 12/06/13 10/17/19 inhaler epinephrine 0.3 mg IM PRN 12/06/13 10/17/19 hydrochlorothiazide 25 mg PO DAILY AM 09/11/17 10/17/19 multivitamin [One Daily 1 ea PO DAILY 12/16/17 10/17/19 Multivitamin] melatonin 5 mg PO HS 04/05/18 10/17/19 hydrocodone 5 mg-acetaminophen 300 1 tab PO HS PRN tab 11/11/18 10/17/19 mg tablet diltiazem HCl 60 mg 60 mg PO DAILY tab-cap 10/17/19 10/17/19 capsule,extended release 12 hr fluticasone 100 mcg-salmeterol 50 1 puff INHALATION BID PRN disk 10/17/19 10/17/19 mcg/dose blistr powdr for inhalation Allergies Allergy/AdvReac Type Severity Reaction Status Date / Time sulfamethoxazole Allergy Severe Verified 10/17/19 11:28 [From Bactrim] trimethoprim [From Bactrim] Allergy Severe Verified 10/17/19 11:28 adhesive Allergy Intermediate Skin Rash Verified 10/17/19 11:28 petrolatum,white Allergy Intermediate head ache Verified 10/17/19 11:28 [From Petroleum Jelly] & difficulty breathing prednisone Allergy Intermediate Verified 10/17/19 11:28 sertraline HCl [From Zoloft] Allergy Intermediate Verified 10/17/19 11:28 Sulfa (Sulfonamide Allergy Intermediate Hives Verified 10/17/19 11:28 Antibiotics) latex Allergy Mild Skin Rash Verified 10/17/19 11:28 venom-honey bee Allergy Verified 10/17/19 11:28 ibuprofen AdvReac Intermediate Nausea Verified 10/17/19 11:28 General Stated Complaint: Vascular MARC: 4 Review of Systems Narrative: Constitutional: denies fevers Eyes: denies eye pain ENT: denies ear pain, dental pain, sore throat Cardiovascular: denies chest pain Respiratory: denies SOB, cough GI: denies abdominal pain, vomiting, diarrhea, constipation : denies flank pain, urinary hesitancy, urinary incontinence MSK: denies neck pain, arthralgias, reports chronic low back pain, right leg pain as per HPI Skin: denies rash Neuro: denies headaches, numbness, weakness [facility] Medical History Acquired hypothyroidism (Acute 12/20/15) Asthma (Acute) Chronic low back pain with bilateral sciatica (Acute) Degenerative disk disease (Acute 02/09/15) RLQ pain and RLE radiculopathy Essential hypertension (Acute 12/20/15) Family history of breast cancer (Acute 12/08/14) Fibromyalgia (Acute) GERD (gastroesophageal reflux disease) (Chronic) Hyperlipidemia (Acute) IBS (irritable bowel syndrome) (Chronic) ERMA (obstructive sleep apnea) (Chronic) ? 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 Do you feel safe at home: Yes Do you feel safe in your relationship?: Yes History History 1 Para 0 Hx # Term Pregnancies Multiple births Hx # Pregnancies Ectopic pregnancies AB induced Hx Number of Living Children AB spontaneous Exam Narrative Exam Narrative: Constitutional: well and nmh-figyc-yxpyjcver, pleasant, conversing normally HENT: head atraumatic/normocephalic/normal inspection, mucous membranes moist Eyes: conjunctiva normal, sclera normal, pupils 3mm b/l Neck: no stridor, normal ROM, trachea midline Resp: normal work of breathing Cardio: normal rate, normal rhythm, DP and PT pulse in the right foot intact Skin: warm, dry, normal color, no rash Neuro: alert, not altered, grossly non-focal, normal tone, normal gait Ext: right foot warm and well-perfused, normal sensation, no rash of the right lower extremity, no edema of the right lower extremity, mild posterior calf tenderness to palpation on the right, also with anterolateral tenderness to palpation of the lower leg, worst pain is lateral aspect of right thigh. No crepitus, no overlying skin changes. Full range of motion of the hip and knee Psych: normal mood, normal affect, normal behavior Course Vital Signs Vital signs: Vital Signs Temperature 36.5 C 10/17/19 08:56 Pulse 70 10/17/19 08:56 Respiratory Rate 12 10/17/19 08:56 Blood Pressure 139/89 10/17/19 08:56 Pulse Oximetry 97 10/17/19 08:56 Temperature 36.5 C 10/17/19 08:56 Temperature Source Temporal Artery Scan 10/17/19 08:56 Pulse 70 10/17/19 08:56 Respiratory Rate 12 10/17/19 08:56 Blood Pressure 139/89 10/17/19 08:56 Blood Pressure Position Sitting 10/17/19 08:56 Pulse Oximetry 97 10/17/19 08:56 Oxygen Delivery Method Room Air 10/17/19 08:56 Oxygen Flow Rate 0 10/17/19 08:56
== END 2019-10-17 09:55 | disposition home or self-care (01) ==
PROVIDERS: Emergency Provider Student in an Organized Health Care Education/Training Program; PCP Family Medicine
DX: R79.1 Abnormal coagulation profile (principal); M79.651 Pain in right thigh

== ENCOUNTER 2019-10-25 09:44 | Outpatient (CLI) | payer MEDICARE, OTHER, SELFPAY ==
--- NOTE | 2019-10-25 13:41 | DI.RAD_ITS ---
EXAM: XR LUMBAR SPINE COMPLETE INDICATION: LUMBAR RADICULOPATHY M54.16. COMPARISON: No exams were available for comparison TECHNIQUE: 2D digital imaging was performed. FINDINGS: No compression fractures are seen. There is multilevel iysf-bm-lmvhuulm disc space narrowing and sma ll endplate osteophytes. There is a slight degenerative scoliosis convex toward the right. There are mild degenerative changes of both SI joints. No spondylolysis or spondylolisthesis is seen. There are mild facet degenerative changes, greatest at L4-5. IMPRESSION: Mohl-ht-tkrqcyhw degenerative disc changes throughout.
== END 2019-10-25 10:04 ==
PROVIDERS: PCP Family Medicine; Visit Provider Family Medicine
DX: M54.5 Low back pain (principal); M54.16 Radiculopathy, lumbar region; M51.16 Intervertebral disc disorders with radiculopathy, lumbar region
CPT/HCPCS: 72110

== ENCOUNTER → 2019-10-28 08:55 | Outpatient (BNVA) | payer MEDICARE, OTHER, SELFPAY | PROVIDERS: PCP Physical Therapist; Referring Provider Family Medicine; Visit Provider Student in an Organized Health Care Education/Training Program | DX: M54.16 Radiculopathy, lumbar region (principal); I10 Essential (primary) hypertension | CPT/HCPCS: 99203; 99214 ==

== ENCOUNTER 2019-11-01 01:34 | Outpatient (CLI) | payer MEDICARE, OTHER, SELFPAY ==
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
== END 2019-11-01 01:54 ==
PROVIDERS: PCP Physical Therapist; Visit Provider Family Medicine
DX: M54.16 Radiculopathy, lumbar region (principal); R29.898 Other symptoms and signs involving the musculoskeletal system; M79.604 Pain in right leg; M79.605 Pain in left leg; M51.16 Intervertebral disc disorders with radiculopathy, lumbar region; M47.26 Other spondylosis with radiculopathy, lumbar region
CPT/HCPCS: 72148

== ENCOUNTER 2019-12-01 02:20 | Outpatient (CLI) | payer MEDICARE, OTHER, SELFPAY ==
--- NOTE | 2019-12-01 08:58 | DI.CT_ITS ---
EXAM: CT ABDOMEN AND PELVIS W CLINICAL HISTORY: LT-SIDED ABDOMINAL PAIN R10.9, S/P MULTIPLE HERNIA REPAIRS NOW WITH SOME TEARING P AIN, LT MID ABDOMEN TECHNIQUE: Imaging Protocol: Axial computed tomography images with coronal and sagittal reformatted images were created and reviewed CONTRAST MATERIAL: Intravenous: Omnipaque 350 Contrast volume:100 mL Oral: Yes COMPARISON: CT ABDOMEN PELVIS W from 09/06/2019 FINDINGS: ABDOMEN: Lung Bases: Scarring or or atelectasis. Liver: Mild hepatomegaly and hepatic steatosis. Prior granulomatous disease. No measurable mass. Portal, Superior Mesenteric, and Splenic Veins: Unremarkable. Gallbladder and Biliary Tract: Status post cholecystectomy. No biliary ductal dilatation. Pancreas: Normal density, no abnormal calcifications or inflammatory process. Spleen: Splenic granuloma. Adrenals: No masses seen. Kidneys: Normal size, contour and axis. No radiodense stones or obstructive uropathy. No masses seen. Abdominal Aorta: Mild atherosclerosis. No aneurysmal dilatation. Bowel: No obstruction or bowel wall thickening. No evidence of acute appendicitis. Small hiatal miguel angel ia. Peritoneal Cavity: No ascites, collection or mesenteric inflammatory response. Lymph Nodes: Within normal limits. Bones: Degenerative changes. Soft Tissues: In the midline in the anterior abdominal wall, there is an encapsulated fluid collectio n measuring 6.6 cm transverse x 1.1 cm AP x 7.7 cm craniocaudad. This may represent an abscess, or s eroma or hematoma. There is mild soft tissue stranding in the soft tissues in the midline abdominal wall. PELVIS: Bladder: Symmetric distention, no gross wall thickening. Reproductive Organs: Unremarkable as visualized. Lymph Nodes: Within normal limits. Bones: Degenerative changes. IMPRESSION: 1. 6.6 cm x 1.1 cm x 7.7 cm encapsulated fluid collection in the midline anterior abdominal wall. Th is may represent an abscess, seroma or hematoma. 2. Mild hepatomegaly and hepatic steatosis. Incidental Findings Critical Findings DATA REPOSITORY: All CT scans at this facility are submitted to the National Radiology Data Registry (NRDR) Dose Index Registry (DIR) with the [employer] (ACR). RADIATION OPTIMIZATION: All CT scans at this facility use at least one of these dose optimization te chniques: automated exposure control; mA and/or kV adjustment per patient size (includes targeted exa ms where dose is matched to clinical indication); or iterative reconstruction.
[2019-12-01] MEDS: Breeza Beverage 473 ML BTL PO ×2 (09:03→09:04)
[2019-12-01] MEDS: Omnipaque 350 MG/ML 50 ML BTL IJ (09:03)
[2019-12-01 09:30] LABS: CREATININE 0.74 mg/dL (0.55-1.02)
[2019-12-01] MEDS: Omnipaque 350 MG/ML 100 ML BTL IJ (10:38)
== END 2019-12-01 02:40 ==
PROVIDERS: PCP Family Medicine; Visit Provider Surgery
DX: R10.32 Left lower quadrant pain (principal); R16.0 Hepatomegaly, not elsewhere classified; K76.0 Fatty (change of) liver, not elsewhere classified; Z90.49 Acquired absence of other specified parts of digestive tract; K44.9 Diaphragmatic hernia without obstruction or gangrene; R19.00 Intra-abdominal and pelvic swelling, mass and lump, unspecified site; I10 Essential (primary) hypertension
CPT/HCPCS: 74177; 82565; J3490; Q9967

== ENCOUNTER 2020-01-11 08:21 | Outpatient (CLI) | payer MEDICARE, OTHER, SELFPAY ==
[2020-01-11] MEDS: Omnipaque 350 MG/ML 100 ML BTL IJ (11:59)
--- NOTE | 2020-01-11 12:00 | DI.CT_ITS ---
EXAM: CT CHEST PE CTA CLINICAL HISTORY: CHEST TIGHTNESS, R07.89; COUGH, R05; CALF PAIN, M79.669. TECHNIQUE: Imaging Protocol: Axial CT angiography was performed with multi-slice acquisition and mu lti-planar and/or 3D reconstructions. CONTRAST MATERIAL: Intravenous: Omnipaque 350 Contrast volume:100 mL COMPARISON: CT ABDOMEN PELVIS W from 12/01/2019 FINDINGS: Pulmonary Arteries: No evidence of filling defect to suggest pulmonary emboli. Tracheobronchial tree: Patent where visualized. Mediastinum and Lidia: No dominant adenopathy or fluid collection. There is a moderate size hiatal her priya. Pulmonary parenchyma: No consolidation or dominant measurable mass. No architectural distortion. Pleura: No effusion or pneumothorax. Heart: The heart is not dilated. No coronary artery calcifications are seen. No pericardial effusion. Aorta: Thoracic aorta non-dilated. No dissection. Atherosclerosis. Upper abdomen: Unremarkable. Bones: Degenerative changes. IMPRESSION: No pulmonary embolus, thoracic aortic dissection or aneurysm. No acute pulmonary process. DATA REPOSITORY: All CT scans at this facility are submitted to the National Radiology Data Registry (NRDR) Dose Index Registry (DIR) with the [employer] (ACR). RADIATION OPTIMIZATION: All CT scans at this facility use at least one of these dose optimization te chniques: automated exposure control; mA and/or kV adjustment per patient size (includes targeted exa ms where dose is matched to clinical indication); or iterative reconstruction.
== END 2020-01-11 08:41 ==
PROVIDERS: PCP Family Medicine; Visit Provider Family Medicine
DX: R07.89 Other chest pain (principal); R05 Cough; M79.669 Pain in unspecified lower leg
CPT/HCPCS: 71275; J3490

== ENCOUNTER 2020-03-05 11:54 | Outpatient (CLI) | payer MEDICARE, OTHER, SELFPAY ==
[2020-03-06 18:06] LABS: COVID-19 RT-PCR Result NEGATIVE (Negative)
== END 2020-03-05 12:14 ==
PROVIDERS: PCP Family Medicine; Visit Provider Nurse Practitioner Family
DX: Z03.818 Encounter for observation for suspected exposure to other biological agents ruled out (principal)
CPT/HCPCS: U0003

== ENCOUNTER 2020-03-05 12:48 | Outpatient (REF) | payer MEDICARE, OTHER, SELFPAY ==
[2020-03-05 19:31] LABS: Abs Immature Grans 0.02 k/cumm (0.0-0.09); Absolute Basophil Count 0.05 k/cumm (0.0-0.2); Absolute Eosinophil Count 0.06 k/cumm (0.0-0.7); Absolute Monocyte Count 0.48 k/cumm (0.11-0.7); Absolute Neutrophil Count 4.79 k/cumm (1.2-6.7); Basophils % 0.7; Eosinophils % 0.8; HCT 42.5 % (36.0-46.0); HGB 13.9 g/dL (12.0-15.5); Immature Grans % 0.3 %; Mean Corp. HGB Concentration 32.7 g/dL (32.0-36.0); Mean Corpuscular Hemoglobin 28.5 pg (27.0-33.0); Mean Corpuscular Volume 87.3 fL (80-95); Mean Platelet Volume 10.7 fL (8.0-11.0); Monocytes % 6.6; Neutrophils % 65.6; Platelet Count 315 x1000/uL (130-400); RBC 4.87 m/cumm (4.00-5.20); RBC Distribution Width 12.6 % (11.7-14.6)
[2020-03-05 19:39] LABS: ALT 33 U/L (14-59); AST 18 U/L (15-37); Albumin 3.7 g/dL (3.4-5.0); Alkaline Phosphatase 80 U/L (46-116); Anion Gap 11.6 mmol/L (3-11); BUN 13 mg/dL (7-18); Bilirubin, Total 0.5 mg/dL (0.2-1.0); CO2 27.4 mmol/L (21.0-32.0); CREATININE 0.81 mg/dL (0.55-1.02); Calcium 9.1 mg/dL (8.5-10.1); Chloride 102 mmol/L (98-107); Glucose 127 mg/dL (74-106); HDL Cholesterol 59 mg/dL (40-60); LDL CHOLESTEROL 134 mg/dL (<100); Potassium 3.5 mmol/L (3.5-5.1); Sodium 141 mmol/L (136-145); TSH (W/Ref FT4) 0.69 uIU/mL (0.36-3.74); Total Protein 7.1 g/dL (6.4-8.2)
== END 2020-03-05 13:08 ==
LOC: NCHCN 12:48
PROVIDERS: PCP Family Medicine; Visit Provider Nurse Practitioner Family
DX: I10 Essential (primary) hypertension (principal); M79.669 Pain in unspecified lower leg
CPT/HCPCS: 80053; 83721; 83718; 84443; 85025

== ENCOUNTER 2020-03-07 00:39 | Outpatient (CLI) | payer MEDICARE, OTHER, SELFPAY ==
--- NOTE | 2020-03-07 | DI.RAD_ITS ---
EXAM: XR CHEST 2V PA LATERAL and XR thoracic spine complete CLINICAL HISTORY: CHEST TIGHTNESS, R07.89 TECHNIQUE: 2D digital imaging was performed. COMPARISON: CR CHEST 2 VIEWS PA,LAT from 09/11/2017 CR XR THORACIC SPINE COMPLETE from 03/07/2020 FINDINGS: MEDIASTINUM: Normal. HEART: Normal. PULMONARY VASCULATURE: Normal. LUNGS: Clear. PLEURAL SPACE: No pleural effusion or pneumothorax. BONE:No acute abnormality. OTHER FINDINGS:There is normal alignment of the thoracic spine. Age-appropriate degenerative changes are present throughout the thoracic spine. Findings include disc space narrowing, subchondral scler osis and endplate osteophytes. The paraspinal soft tissues are unremarkable. IMPRESSION: 1. No acute pulmonary findings. 2. Degenerative changes in the thoracic spine. DATA REPOSITORY: RADIATION DOSE DELIVERED:
== END 2020-03-07 00:59 ==
PROVIDERS: PCP Family Medicine; Visit Provider Family Medicine
DX: R06.09 Other forms of dyspnea (principal); R07.89 Other chest pain; M47.814 Spondylosis without myelopathy or radiculopathy, thoracic region
CPT/HCPCS: 71046; 72072; 93225

== ENCOUNTER 2020-03-08 08:42 | Outpatient (CLI) | payer MEDICARE, OTHER, SELFPAY | END 2020-03-08 09:02 | PROVIDERS: PCP Family Medicine; Visit Provider Family Medicine | DX: R06.09 Other forms of dyspnea (principal); R07.89 Other chest pain; I47.1 Supraventricular tachycardia; I49.1 Atrial premature depolarization | CPT/HCPCS: 93227; 93226 ==

== ENCOUNTER 2020-03-28 01:00 | Outpatient (CLI) | payer MEDICARE, OTHER, SELFPAY ==
--- NOTE | 2020-03-28 07:33 | DI.US_ITS ---
APPROVED REPORT EXAM: Comprehensive 2D, Doppler, and color-flow Echocardiogram Patient Location: Out-Patient Staff Physician: Charlotte Aguila RDCS (AE) Indications: Chest tightness, Dyspnea Other Information Study Quality: Good Conclusion Left Ventricle : The left ventricle is normal size. The left ventricular systolic function is normal. The left ventricular ejection fraction is within the normal range. There is normal left ventricular wall thickness. There is normal LV segmental wall motion. The left ventricular diastolic function is normal. LVEF is 60%. Right Ventricle : The right ventricle is normal size. The right ventricular systolic function is norm al. Atria : The left atrium size is normal. The right atrium size is normal. Valves: There are no hemodynamically significant valvular lesions. Great Vessels : IVC is normal in size and collapses >50% with inspiration. Compared to echocardiogram from 07/27/2019: There is no significant change. Wall motion Left Ventricle The left ventricle is normal size. The left ventricular systolic function is normal. The left ventric ular ejection fraction is within the normal range. There is normal left ventricular wall thickness. T here is normal LV segmental wall motion. The left ventricular diastolic function is normal. There is no ventricular septal defect visualized. LVEF is 60%. Right Ventricle The right ventricle is normal size. The right ventricular systolic function is normal. Atria The left atrium size is normal. The right atrium size is normal. The interatrial septum is intact wit h no evidence for an atrial septal defect. Aortic Valve The aortic valve is normal in structure. Aortic valve is trileaflet. There is no aortic valvular sten osis. No aortic regurgitation is present. Mitral Valve There is mitral annular calcification. No evidence of mitral valve stenosis. Mild mitral regurgitatio n. Tricuspid Valve The tricuspid valve is normal in structure. There is no tricuspid valve stenosis. Mild tricuspid regu rgitation. Great Vessels The aortic root is normal in size. The ascending aorta is mildly dilated. IVC is normal in size and c ollapses >50% with inspiration. Pericardium There is no pericardial effusion. 2D Dimensions IVSD d PLAX 1.02 cm F: 0.6-1.0 LV Vol A2C d MOD 87.6 mL LVPW d PLAX 1.02 cm F: 0.6 - 1.0 LV Vol A4C d MOD 106.5 mL LVID d PLAX 4.80 cm F: 3.8 - 5.2 LA vol/ BSA A2C s A-L 30.8 mL/m2 LVDs 3.30 cm F: 2.2 - 3.5 LA vol/ BSA A4C s A-L 31.6 mL/m2 Ao Root d 2.56 cm F: 2.7 - 3.3 LA Vol/ BSA Biplane s A-L 32.0 mL/m2 RA Area A4C 19.31 cm2 LA Area A4C s MOD 21.72 cm2 RA Vol/ BSA A4C s A-L 29.3 mL/m2 LA Area A2C s MOD 20.95 cm2 Ao Asc Diam d 3.22 cm F: 2.3 - 3.1 LV EF A4C MOD 59.3 % LV EF Teichholz 57.7 % LV EF A2C MOD 59.1 % LVEF (Garza's) 59.20 % F: 54 - 74 LV EF Biplane MOD 59.2 % LV Volume 73.12 mL F: 46 - 106 SV 58.51 mL LV Volume Index 35.15 mL/m2 F: 29 - 61 SV Index 28.06 mL/m2 LV Vol Biplane MOD 98.8 mL FS 30.40 % M-Mode TAPSE 2.35 cm (M/F) >1.7 LV Diastology MV E' medial 0.093 (>0.07 m/s) E/A Ratio 1.0 LV E/e MED 9.50 (<14) MV E Vmax 0.88 (0.4-1.3 m/s) MV E' lateral 0.104 (>0.1 m/s) MV A Vmax 0.90 (0.4-1.3 m/s) LV E/e LAT 8.45 (<14) MV E/A Ratio 0.94 MV E/E' medial 9.50 MV E/E' lateral 8.49 Aortic Valve LVOT Area 3.17 cm2 AoV Area Vmax 2.43 cm2 LVOT Vmax 1.22 m/s AoV Area/ BSA (Vmax) 1.17 cm2/m2 LVOT Mean Kiko. 0.78 m/s SAMARA Mean Kiko. 2.20 cm2 LVOT Peak Grad 6.0 mmHg SAMARA Mean Kiko. Index 1.05 cm2/m2 LVOT Mean Grad 2.9 mmHg LVOT VTI 0.275 m LVOT Diam s 2.00 cm AoV Vmax 1.59 m/s Velocity Ratio 0.76 AoV Mean Kiko. 1.12 m/s AoV Peak Grad 10.2 mmHg LVOT SV 87.04 mL AoV Mean Grad 5.5 mmHg AoV VTI 0.351 m AoV Area VTI 2.48 cm2 AoV Area/ BSA (VTI) 1.19 cm/m2 Mitral Valve MV DT 205 (160-240 msec) MV PHT 59 msec MV Area PHT 3.70 cm2 Tricuspid Valve TR Peak Grad 22.0 mmHg TR Vmax 2.35 m/s RA Pressure 3.00 mmHg RVSP (TR) 25.0 mmHg
== END 2020-03-28 01:20 ==
PROVIDERS: PCP Family Medicine; Visit Provider Family Medicine
DX: R07.89 Other chest pain (principal); R06.09 Other forms of dyspnea; I10 Essential (primary) hypertension; I47.1 Supraventricular tachycardia
CPT/HCPCS: 93306

== ENCOUNTER → 2020-04-16 09:01 | Outpatient (BNVA) | payer MEDICARE, OTHER, SELFPAY | PROVIDERS: PCP Family Medicine; Referring Provider Family Medicine; Visit Provider Internal Medicine Cardiovascular Disease | DX: I47.1 Supraventricular tachycardia (principal); I10 Essential (primary) hypertension | CPT/HCPCS: 99214 ==

== ENCOUNTER 2020-05-18 13:23 | Outpatient (REF) | payer MEDICARE, OTHER, SELFPAY ==
[2020-05-21 12:04] LABS: Lyme Ab w Rflx to Lyme Confirm Negative (Negative)
[2020-05-22 21:45] LABS: Anaplasma phagocytophilum Negative (Negative); B. miyamotoi PCR Negative (Negative); Babesia divergens/MO-1 Negative (Negative); Babesia duncani Negative (Negative); Babesia microti Negative (Negative); Ehrlichia chaffeensis Negative (Negative); Ehrlichia ewingii/canis Negative (Negative); Ehrlichia muris eauclairensis Negative (Negative)
== END 2020-05-18 13:43 ==
LOC: NCHCN 13:23
PROVIDERS: PCP Family Medicine; Visit Provider Family Medicine
DX: T14.8XXA Other injury of unspecified body region, initial encounter (principal); W57.XXXA Bitten or stung by nonvenomous insect and other nonvenomous arthropods, initial encounter
CPT/HCPCS: 87798; 86618

== ENCOUNTER → 2020-05-22 13:44 | Outpatient (BNVA) | payer MEDICARE, OTHER, SELFPAY | PROVIDERS: PCP Family Medicine; Referring Provider Family Medicine; Visit Provider Internal Medicine Cardiovascular Disease | DX: I47.1 Supraventricular tachycardia (principal); I10 Essential (primary) hypertension | CPT/HCPCS: 99442; 99213 ==

== ENCOUNTER 2020-05-28 07:30 | Outpatient (CLI) | payer MEDICARE, OTHER, SELFPAY ==
[2020-05-29 14:53] LABS: COVID-19 RT-PCR Result NEGATIVE (Negative)
== END 2020-05-28 07:50 ==
PROVIDERS: PCP Family Medicine; Visit Provider Family Medicine
DX: Z11.59 Encounter for screening for other viral diseases (principal); Z01.818 Encounter for other preprocedural examination
CPT/HCPCS: U0003

== ENCOUNTER 2020-05-31 03:36 | Outpatient (CLI) | payer MEDICARE, OTHER, SELFPAY ==
[2020-05-31] MEDS: Albuterol HFA 18 GM 200 PUFF INH IH (09:19)
[2020-05-31] MEDS: Inhaler, Assist Device 1 EACH MC (09:20)
--- NOTE | 2020-06-01 13:17 | W.PFT ---
Date of service: 05/31/20 Time of Service: 08:07 Pulmonary Function Test Result Interpretation Spirometry: Spirometry shows no evidence of obstructive airways disease, no bronchodilator response Lung Volumes: Shows no evidence of restriction Diffusion Capacity: Is borderline mildly reduced, which is likely a normal variant, this is normal when corrected to alveolar volume Airway Pressure: Normal Impression Overall normal pulmonary function study slightly low uncorrected diffusion capacity is likely an effort related variant and is likely also a normal variant. When the study was compared to previous one from 05/22/2013 the patient has a total of 380 cc decline in FVC, FEV1 has declined by 400 cc Clinical Correlation therefore is recommended.
== END 2020-05-31 03:56 ==
PROVIDERS: PCP Family Medicine; Visit Provider Family Medicine
DX: R06.00 Dyspnea, unspecified (principal)
CPT/HCPCS: 94060; 94726; 94729

== ENCOUNTER 2020-07-23 00:46 | Outpatient (CLI) | payer MEDICARE, OTHER, SELFPAY ==
--- NOTE | 2020-07-23 | DI.RAD_ITS ---
EXAM: XR ABDOMEN FLAT PLATE CLINICAL HISTORY: ABD PAIN, COLIC,R10.83 TECHNIQUE: COMPARISON: CR XR ABDOMEN FLAT UPRIGHT from 08/25/2019 FINDINGS: Two views were obtained. There are vascular clips in the right upper quadrant consistent prior celia cystectomy. Bowel gas pattern is within normal limits. No gross free intraperitoneal air on these s upine views. No definite urinary tract calcifications seen. IMPRESSION: No evidence of acute process. RADIATION DOSE DELIVERED: Total DLP
== END 2020-07-23 01:06 ==
PROVIDERS: PCP Family Medicine; Visit Provider Family Medicine
DX: R10.84 Generalized abdominal pain (principal)
CPT/HCPCS: 74018

== ENCOUNTER 2020-07-24 01:26 | Outpatient (CLI) | payer MEDICARE, OTHER, SELFPAY ==
[2020-07-24 09:23] LABS: Iron 99 ug/dL (50-170)
[2020-07-24 09:41] LABS: Ferritin 20 ng/mL (8-252); Folate 13.8 ng/mL (8.6-20.0); Magnesium 1.9 mg/dL (1.8-2.4)
== END 2020-07-24 01:46 ==
PROVIDERS: PCP Family Medicine; Visit Provider Family Medicine
DX: G25.81 Restless legs syndrome (principal); G62.9 Polyneuropathy, unspecified; R53.1 Weakness
CPT/HCPCS: 36415; 82728; 82746; 83540; 83735; 84590

== ENCOUNTER → 2020-08-21 11:33 | Outpatient (CLI) | payer MEDICARE, OTHER, SELFPAY ==
--- NOTE | 2020-08-21 11:15 | DI.RAD_ITS ---
EXAM: XR WRIST RT COMPLETE CLINICAL HISTORY: rt wrist pain. TECHNIQUE: 2D digital imaging was performed. COMPARISON: No exams were available for comparison FINDINGS: BONES: No acute fracture is present. No bony destructive lesion is seen. There is a cyst seen at the proximal surface of the lunate. There does appear to be loss of the cortex of the cyst proximally. Mild cystic changes are also seen at the articular surface of the ulna. JOINTS: The carpal bones are normally aligned. No dislocation is present. SOFT TISSUE: Normal. IMPRESSION: Cystic changes seen at the articular surfaces of the lunate and ulna. CT or MRI may be considered fo r further evaluation. DATA REPOSITORY: RADIATION DOSE DELIVERED:
== END ==
PROVIDERS: PCP Family Medicine; Referring Provider Family Medicine; Visit Provider Orthopaedic Surgery
DX: M85.431 Solitary bone cyst, right ulna and radius (principal); M25.531 Pain in right wrist; M25.541 Pain in joints of right hand; I10 Essential (primary) hypertension
CPT/HCPCS: 20600; 99203; 99214; 73110; J1030

== ENCOUNTER 2020-10-02 18:38 | Outpatient (REF) | payer MEDICARE, OTHER, SELFPAY ==
[2020-10-02 20:43] LABS: HCT 42.7 % (36.0-46.0); HGB 13.9 g/dL (11.2-15.7)
[2020-10-02 20:55] LABS: Iron 59 ug/dL (50-170)
[2020-10-02 21:20] LABS: Anion Gap 10.1 mmol/L (3-11); BUN 18 mg/dL (7-18); CO2 26.9 mmol/L (21.0-32.0); CREATININE 0.78 mg/dL (0.55-1.02); Calcium 8.8 mg/dL (8.5-10.1); Chloride 105 mmol/L (98-107); Ferritin 19 ng/mL (8-252); Glucose 103 mg/dL (74-106); Magnesium 2.2 mg/dL (1.8-2.4); Sodium 142 mmol/L (136-145); Vitamin B12 471 pg/mL (193-986)
[2020-10-04 04:35] LABS: Vitamin D 25 Total 27.5 ng/ml (30-100)
== END 2020-10-02 18:58 ==
LOC: NCHCN 18:38
PROVIDERS: PCP Family Medicine; Visit Provider Family Medicine
DX: D50.8 Other iron deficiency anemias (principal); R73.02 Impaired glucose tolerance (oral); E53.8 Deficiency of other specified B group vitamins; E55.9 Vitamin D deficiency, unspecified; G25.81 Restless legs syndrome
CPT/HCPCS: 80048; 82306; 82607; 82728; 83540; 83735; 85014; 85018

== ENCOUNTER 2020-11-09 19:18 | Outpatient (REF) | payer MEDICARE, OTHER, SELFPAY ==
[2020-11-09 16:33] LABS: HCT 45.4 % (36.0-46.0); HGB 14.4 g/dL (11.2-15.7); MCH 28.5 pg (27.0-33.0); MCHC 31.7 % (32.0-36.0); MCV 89.9 fL (80-95); MPV 10.5 fL (8.0-11.0); Platelet Count 293 10^3/uL (130-400); RBC 5.05 10^6/uL (3.93-5.22); RDW 12.8 % (11.7-14.6); RDW-SD 42.3 fL; WBC 7.26 10^3/uL (4.4-10.8)
[2020-11-09 17:30] LABS: Iron 105 ug/dL (50-170); Total Iron Binding Capacity 326 ug/dL (250-450); Transferrin Sat 32 % (15-50)
[2020-11-09 17:47] LABS: Ferritin 24 ng/mL (8-252); Magnesium 1.9 mg/dL (1.8-2.4); TSH (W/Ref FT4) 1.15 uIU/mL (0.36-3.74)
[2020-11-12 06:31] LABS: Vitamin D 25 Total 30.3 ng/ml (30-100)
== END 2020-11-09 19:38 ==
LOC: NCHCN 19:18
PROVIDERS: PCP Family Medicine; Visit Provider Family Medicine
DX: G25.81 Restless legs syndrome (principal); R53.83 Other fatigue; D50.8 Other iron deficiency anemias
CPT/HCPCS: 82306; 85027; 82728; 83540; 83550; 83735; 84443

== ENCOUNTER → 2020-11-19 09:43 | Outpatient (BNVA) | payer MEDICARE, OTHER, SELFPAY | PROVIDERS: PCP Family Medicine; Referring Provider Family Medicine; Visit Provider Internal Medicine Cardiovascular Disease | DX: I47.1 Supraventricular tachycardia (principal); I10 Essential (primary) hypertension | CPT/HCPCS: 99214 ==

== ENCOUNTER → 2020-12-18 14:37 | Outpatient (BNVA) | payer MEDICARE, OTHER, SELFPAY | PROVIDERS: PCP Family Medicine; Referring Provider Family Medicine; Visit Provider Internal Medicine Cardiovascular Disease | DX: I49.3 Ventricular premature depolarization (principal); I47.1 Supraventricular tachycardia; R00.2 Palpitations; I10 Essential (primary) hypertension | CPT/HCPCS: 99214; 99443 ==

== ENCOUNTER → 2021-01-14 09:08 | Outpatient (BNVA) | payer MEDICARE, OTHER, SELFPAY | PROVIDERS: PCP Family Medicine; Referring Provider Family Medicine; Visit Provider Student in an Organized Health Care Education/Training Program | DX: M18.11 Unilateral primary osteoarthritis of first carpometacarpal joint, right hand (principal) | CPT/HCPCS: 20600; J1030 ==

== ENCOUNTER → 2021-03-19 09:51 | Outpatient (BNVA) | payer MEDICARE, OTHER, SELFPAY | PROVIDERS: PCP Family Medicine; Referring Provider Family Medicine; Visit Provider Internal Medicine Cardiovascular Disease | DX: I49.3 Ventricular premature depolarization (principal); I47.1 Supraventricular tachycardia; I10 Essential (primary) hypertension; R60.0 Localized edema | CPT/HCPCS: 99214; 99213 ==

== ENCOUNTER 2021-04-30 12:11 | Outpatient (REF) | payer MEDICARE, OTHER, SELFPAY ==
[2021-04-30 19:50] LABS: HCT 41.9 % (36.0-46.0); HGB 13.6 g/dL (11.2-15.7)
[2021-04-30 20:13] LABS: ALT 34 U/L (14-59); AST 19 U/L (15-37); Albumin 3.6 g/dL (3.4-5.0); Alkaline Phosphatase 60 U/L (46-116); Anion Gap 10.2 mmol/L (3-11); BUN 14 mg/dL (7-18); Bilirubin, Total 0.5 mg/dL (0.2-1.0); CO2 27.8 mmol/L (21.0-32.0); CREATININE 0.9 mg/dL (0.55-1.02); Calcium 9.1 mg/dL (8.5-10.1); Chloride 105 mmol/L (98-107); Glucose 94 mg/dL (74-106); Potassium 3.8 mmol/L (3.5-5.1); Sodium 143 mmol/L (136-145); Total Protein 6.9 g/dL (6.4-8.2)
[2021-04-30 20:18] LABS: Hemoglobin A1C 5.8 % (<5.7)
[2021-05-01 20:20] LABS: Vitamin B12 398 pg/mL (193-986)
[2021-05-02 10:22] LABS: Lyme Ab w Rflx to Lyme Confirm Negative (Negative)
[2021-05-03 09:39] LABS: Anaplasma phagocytophilum Negative (Negative); B. miyamotoi PCR Negative (Negative); Babesia divergens/MO-1 Negative (Negative); Babesia duncani Negative (Negative); Babesia microti Negative (Negative); Ehrlichia chaffeensis Negative (Negative); Ehrlichia ewingii/canis Negative (Negative); Ehrlichia muris eauclairensis Negative (Negative)
== END 2021-04-30 12:12 | disposition home or self-care (01) ==
LOC: NCHCN 12:11
PROVIDERS: PCP Family Medicine; Visit Provider Family Medicine
DX: T14.8XXA Other injury of unspecified body region, initial encounter (principal); K90.41 Non-celiac gluten sensitivity; R73.03 Prediabetes; E53.8 Deficiency of other specified B group vitamins; I10 Essential (primary) hypertension; K43.9 Ventral hernia without obstruction or gangrene; W57.XXXA Bitten or stung by nonvenomous insect and other nonvenomous arthropods, initial encounter
CPT/HCPCS: 80053; 87798; 82607; 83036; 85014; 85018; 86618

== ENCOUNTER 2021-05-06 01:19 | Outpatient (CLI) | payer MEDICARE, OTHER, SELFPAY ==
--- NOTE | 2021-05-06 | DI.CT_ITS ---
Exam(s) CT ABDOMEN PELVIS W EXAM: CT ABDOMEN PELVIS W CLINICAL HISTORY: COLIC ABD PAIN,R10.83,VENTRAL HERNIA,K43.9. TECHNIQUE: Imaging Protocol: Axial computed tomography images with coronal and sagittal reformatted images were created and reviewed CONTRAST MATERIAL: Intravenous: Omnipaque 100cc Oral: None COMPARISON: CT CT CHEST PE CTA from 01/11/2020 FINDINGS: VISUALIZED LUNG BASES: Mild benign-appearing markings in the right lung base posterior basal segment. No pleural effusions.. Small hiatal hernia again noted. There is also a possible diverticulum of distal esophagus evident, similar to previous. This measures 2.5 x 1.2 cm. ABDOMEN: There is no ascites. LIVER: There are calcified granulomas in the liver and spleen. There are no ominous focal hepatic le sions. No dilatation of intrahepatic ducts. GALLBLADDER/BILIARY: The gallbladder is surgically absent. CBD is not dilated. PANCREAS: No evidence of pancreatic mass nor dilatation of the pancreatic duct. SPLEEN: Spleen size is upper normal. No splenic lesions but there are calcified granulomas in the sp yousuf, similar to the liver. Splenic and portal veins are patent. ADRENALS: There are no significant adrenal masses. KIDNEYS:No cysts evident. No solid renal masses. No calculi nor hydronephrosis.. ABDOMINAL AORTA: Abdominal aorta is not enlarged. LYMPH NODES:There is no retroperitineal nor paraaortic adenopathy. ABDOMINAL WALL: At level the pelvis there is a right-sided anterior abdominal wall hernia sac. There is a partially contained cecum. Hernia sac at this level measures 4 cm wide by 1.8 cm AP by 6 cm ce phalocaudal. The superior aspect of the cecum above the ileocecal valve is partially included within the hernia sac. The bowel wall at this level is not edematous and there is no obstruction. The ter [place] ileum is not within the hernia sac nor is the appendix. GI: The ascending colon above this level is difficult to evaluate because of lack of oral contrast th erein. The oral contrast column has reached level of the ileocecal valve not beyond. PELVIS: GI: No evidence of appendicitis.No evidence of sigmoid diverticulitis. LYMPH NODES: There is no intrapelvic nor inguinal adenopathy. REPRODUCTIVE: Uterus exhibits normal size. A few small calcifications of the level the fundus are no lillian which are probably than fibroids. No significant ovarian masses. No fluid in the adnexal region s and cul-de-sac URINARY BLADDER: No calculi nor obvious masses evident OSSEOUS: No significant osseous lesions. IMPRESSION: 1. Main finding here is an anterior right-sided abdominal wall hernia in the pelvis contains part of the cecum at the level of the ileocecal valve. The cecum is not edematous and the ileocecal valve an d terminal ileum and appendix are actually not within the hernia sac. This hernia sac measures 4 cm wide by 1.8 cm AP x 6 cm craniocaudal. There is no bowel obstruction at this level. No other hernia s identified. 2. There are calcified granulomas in the liver and spleen but no ominous lesions within these organs. 3. Hiatal hernia with possible distal duodenal diverticulum noted. RADIATION DOSE DELIVERED: 1,262.19mGy.cm Total DLP DATA REPOSITORY: All CT scans at this facility are submitted to the National Radiology Data Registry (NRDR) Dose Index Registry (DIR) with the [employer] (ACR). RADIATION OPTIMIZATION: All CT scans at this facility use at least one of these dose optimization te chniques: automated exposure control; mA and/or kV adjustment per patient size (includes targeted exa ms where dose is matched to clinical indication); or iterative reconstruction.
[2021-05-06] MEDS: Omnipaque 350 MG/ML 50 ML BTL IJ (07:54)
[2021-05-06] MEDS: Normal Saline Flush 10 ML SYR IVP (09:05)
[2021-05-06] MEDS: Normal Saline - Diluent 50 ML VIAL IV (09:05)
[2021-05-06] MEDS: Omnipaque 350 MG/ML 100 ML BTL IJ (09:05)
== END 2021-05-06 01:39 ==
PROVIDERS: PCP Family Medicine; Visit Provider Family Medicine
DX: K43.9 Ventral hernia without obstruction or gangrene (principal); K44.9 Diaphragmatic hernia without obstruction or gangrene; K75.3 Granulomatous hepatitis, not elsewhere classified
CPT/HCPCS: 74177; J3490; Q9967

== ENCOUNTER → 2021-09-26 12:48 | Outpatient (BNVA) | payer MEDICARE, OTHER, SELFPAY | PROVIDERS: PCP Family Medicine; Referring Provider Family Medicine; Visit Provider Internal Medicine Cardiovascular Disease | DX: I49.3 Ventricular premature depolarization (principal); I47.1 Supraventricular tachycardia; I10 Essential (primary) hypertension | CPT/HCPCS: 99214; 99213 ==

== ENCOUNTER 2021-10-23 04:06 | Outpatient (CLI) | payer MEDICARE, OTHER, SELFPAY ==
[2021-10-24 10:09] LABS: Lyme Ab w Rflx to Lyme Confirm Negative (Negative)
[2021-10-24 23:59] LABS: Bartonella Henselae IgG <1:128 titer (<1:128); Bartonella Henselae IgM <1:20 titer (<1:20); Bartonella Quintana IgG <1:128 titer (<1:128); Bartonella Quintana IgM <1:20 titer (<1:20)
[2021-10-25 18:41] LABS: Anaplasma phagocytophilum Negative (Negative); B. miyamotoi PCR Negative (Negative); Babesia divergens/MO-1 Negative (Negative); Babesia duncani Negative (Negative); Babesia microti Negative (Negative); Ehrlichia chaffeensis Negative (Negative); Ehrlichia ewingii/canis Negative (Negative); Ehrlichia muris eauclairensis Negative (Negative)
== END 2021-10-23 04:07 | disposition home or self-care (01) ==
LOC: LBO 04:07
PROVIDERS: PCP Family Medicine; Visit Provider Family Medicine
DX: T14.8XXA Other injury of unspecified body region, initial encounter (principal); W57.XXXA Bitten or stung by nonvenomous insect and other nonvenomous arthropods, initial encounter; R00.2 Palpitations
CPT/HCPCS: 36415; 87798; 86611; 86618

== ENCOUNTER 2021-10-25 01:49 | Outpatient (RCR) | payer MEDICARE, OTHER, SELFPAY ==
--- NOTE | 2021-10-25 09:15 | HOLTER_ITS ---
APPROVED REPORT Conclusion This is a 48-hour Holter monitor ordered for palpitations Predominant rhythm was sinus with an average heart rate of 69. Minimum was 50, maximum 124 There were very rare ventricular ectopic beats. There was one 4 beat run of nonsustained ventricular tachycardia There were occasional atrial premature beats. A total of 18 runs of supraventricular tachycardia wer e recorded. The longest of these was 18 beats in duration There was no atrial fibrillation, no high-grade AV block, no pauses greater than 3 seconds The majority of patient's symptoms corresponded to sinus rhythm, once to a 3 beat atrial run
== END 2021-11-18 23:59 | disposition home or self-care (01) ==
LOC: RT 01:49
PROVIDERS: PCP Family Medicine; Visit Provider Family Medicine
DX: R00.2 Palpitations (principal); I47.2 Ventricular tachycardia; I49.1 Atrial premature depolarization; I47.1 Supraventricular tachycardia
CPT/HCPCS: 93227; 93225; 93226

== ENCOUNTER 2021-12-03 16:46 | Outpatient (REF) | payer MEDICARE, OTHER, SELFPAY ==
[2021-12-03 21:23] LABS: ESR 15 mm/hr (0-30)
[2021-12-03 21:33] LABS: ALT 35 U/L (14-59); AST 16 U/L (15-37); Albumin 3.8 g/dL (3.4-5.0); Alkaline Phosphatase 70 U/L (46-116); Anion Gap 9.8 mmol/L (3-11); BUN 18 mg/dL (7-18); Bilirubin, Total 0.5 mg/dL (0.2-1.0); C-Reactive Protein 0.21 mg/dL (0.0-0.3); CO2 28.2 mmol/L (21.0-32.0); CREATININE 0.8 mg/dL (0.55-1.02); Chloride 102 mmol/L (98-107); Glucose 124 mg/dL (74-106); Magnesium 2.2 mg/dL (1.8-2.4); Potassium 3.7 mmol/L (3.5-5.1); Sodium 140 mmol/L (136-145); Total Protein 7.3 g/dL (6.4-8.2)
[2021-12-03 21:44] LABS: Hemoglobin A1C 5.8 % (<5.7)
== END 2021-12-03 16:47 | disposition home or self-care (01) ==
LOC: NCHCN 16:46
PROVIDERS: PCP Family Medicine; Visit Provider Family Medicine
DX: R73.03 Prediabetes (principal); I10 Essential (primary) hypertension; R51.9 Headache, unspecified; R00.2 Palpitations; M75.51 Bursitis of right shoulder
CPT/HCPCS: 80053; 85652; 83036; 83735; 86140

== ENCOUNTER 2022-01-09 20:04 | Outpatient (REF) | payer MEDICARE, OTHER, SELFPAY ==
[2022-01-10 19:18] LABS: Rheumatoid Factor <8.6 IU/mL (<12.0)
[2022-01-13 14:57] LABS: ANA Interpretation Positive (Negative); ANA Titer Pattern 1:160 Homogeneous
[2022-01-14 12:49] LABS: SS-A Antibody 0.8 Units (<20.0)
== END 2022-01-09 20:05 | disposition home or self-care (01) ==
LOC: NCHCN 20:04
PROVIDERS: PCP Family Medicine; Visit Provider Family Medicine
DX: R53.83 Other fatigue (principal); M25.59 Pain in other specified joint; R68.2 Dry mouth, unspecified
CPT/HCPCS: 86038; 86235; 86431

== ENCOUNTER 2022-01-22 03:03 | Outpatient (CLI) | payer MEDICARE, OTHER, SELFPAY ==
[2022-01-23 13:30] LABS: SS-B (La) Ab, IgG 1.4 Units (<20.0); Sm (Smith) Ab, IgG 8.4 Units (<20.0)
[2022-01-23 13:41] LABS: dsDNA Ab, IgG <12.3 IU/mL (<30.0)
== END 2022-01-22 03:04 | disposition home or self-care (01) ==
LOC: LBO 03:03
PROVIDERS: PCP Family Medicine; Visit Provider Family Medicine
DX: R76.0 Raised antibody titer (principal); M25.50 Pain in unspecified joint; R68.2 Dry mouth, unspecified
CPT/HCPCS: 36415; 86225; 86235

== ENCOUNTER 2022-09-09 09:32 | Outpatient (CLI) | payer MEDICARE, OTHER, SELFPAY ==
--- NOTE | 2022-09-09 09:15 | DI.RAD_ITS ---
Exam(s) XR SHOULDER RT COMPLETE 2+V EXAM: XR SHOULDER RT COMPLETE 2+V CLINICAL HISTORY: RIGHT SHOULDER PAIN. TECHNIQUE: 2D digital imaging was performed of the right shoulder. Two images were obtained. AP an d axillary views were obtained. COMPARISON: CR RIGHT SHOULDER COMPLETE from 08/01/2015 FINDINGS: BONES: No acute fracture is present. No bony destructive lesion is seen. JOINTS: No dislocation present. Moderate degenerative changes are seen at the acromioclavicular joint . The glenohumeral joint appears well maintained. SOFT TISSUE: Normal. IMPRESSION: Degenerative changes of the right shoulder. DATA REPOSITORY: RADIATION DOSE DELIVERED:
== END 2022-09-09 09:33 | disposition home or self-care (01) ==
LOC: DIORS 09:33
PROVIDERS: PCP Family Medicine; Referring Provider Family Medicine; Visit Provider Student in an Organized Health Care Education/Training Program
DX: M75.101 Unspecified rotator cuff tear or rupture of right shoulder, not specified as traumatic (principal)
CPT/HCPCS: 20610; 99214; 73030; J1030

== ENCOUNTER 2022-09-23 07:55 | Outpatient (CLI) | payer MEDICARE, OTHER, SELFPAY ==
--- NOTE | 2022-09-23 07:45 | RT.EKG_ITS ---
APPROVED REPORT Exam: Resting ECG Reason for Exam: palpitations Patient Location: O HR:101 bpm ECG Measurements Heart Rate 101 AXIS [place] 148 P 47 QRSd 60 QRS 22 QT 328 T [id number] QTc 426 Conclusion Sinus tachycardia...rate> 99
== END 2022-09-23 07:56 | disposition home or self-care (01) ==
LOC: DI.CARD 07:56
PROVIDERS: PCP Family Medicine; Visit Provider Internal Medicine Cardiovascular Disease
DX: I47.1 Supraventricular tachycardia (principal); I49.3 Ventricular premature depolarization
CPT/HCPCS: 93010

== ENCOUNTER → 2022-09-23 13:27 | Outpatient (BNVA) | payer MEDICARE, OTHER, SELFPAY | PROVIDERS: PCP Family Medicine; Visit Provider Internal Medicine Cardiovascular Disease | DX: I49.3 Ventricular premature depolarization; R07.89 Other chest pain; I10 Essential (primary) hypertension | CPT/HCPCS: 93005; 99214 ==

== ENCOUNTER 2022-10-14 09:15 | Outpatient (REF) | payer MEDICARE, OTHER, SELFPAY | END 2022-10-14 09:16 | disposition home or self-care (01) | LOC: NCHCN 09:15 | PROVIDERS: PCP Family Medicine; Visit Provider Family Medicine | DX: N39.0 Urinary tract infection, site not specified (principal) | CPT/HCPCS: 87077; 87086; 87186 ==

== ENCOUNTER 2022-10-16 09:29 | Emergency (ER) | payer MEDICARE, OTHER, SELFPAY ==
[2022-10-16] VITALS (25 sets, daily range): BP systolic 123–149; BP diastolic 57–73; PULSE 63–78; RESP 11–24; O2SAT 99
--- NOTE | 2022-10-16 09:30 | RT.EKG_ITS ---
APPROVED REPORT Exam: Resting ECG Reason for Exam: chest pain Patient Location: E HR:74 bpm ECG Measurements Heart Rate 74 AXIS [place] 157 P 8 QRSd 91 QRS 14 QT 403 T 47 QTc 448 Conclusion Sinus rhythm...normal P axis, V-rate 60- 99
--- NOTE | 2022-10-16 09:49 | ED.GENADUL_ITS ---
Discharge Plan Disposition Patient Disposition: Home Condition: Stable Discharge Details Clinical Impression: Spigelian hernia Primary Care Provider: Lidia Whelan V ED Provider: Yaw Lehman Home Meds and New Rx's Prescriptions: New pantoprazole [Protonix] 40 mg tablet,delayed release (DR/EC) 40 mg PO DAILY 30 Days Qty: 30 0RF Continued hydrocodone-acetaminophen [Vicodin] 5-300 mg tablet 1 tab PO Q8H PRN Label Comments: PER PATIENT ascorbic acid (vitamin C) 500 mg capsule See Rx Instructions PO DAILY Rx Instructions: 1 cap PO daily; magnesium 250 mg tablet 500 mg PO DAILY epinephrine 0.3 MG/0.3 ML auto-injector 0.3 mg IM PRN albuterol sulfate 8.5 GM HFA aerosol inhaler 1 puff Inhalation Q4H PRN Qty: 1 melatonin 5 MG tablet 5 mg PO HS Advair HFA 230-21 mcg/actuation HFA aerosol inhaler 2 puff inhalation DAILY diltiazem HCl 60 mg tablet 60 mg PO DAILY cholecalciferol (vitamin D3) 50 mcg (2,000 unit) capsule 50 mcg PO DAILY hydrochlorothiazide 25 mg tablet 25 mg PO QHS Discharge Instructions Instructions: GERD (Gastroesophageal Reflux Disease) (ED), Diet for Stomach Ulcers and Gastritis (ED) Additional Instructions: Please take Protonix as prescribed once daily for the next month. Your work-up in the emergency department today included 6 chest x-ray, cardiac work-up, CT scan of the abdomen. As we discussed you have a spigelian hernia of the abdominal wall. Our care management team will arrange follow-up for you in general surgery clinic for recheck. Return if you develop vomiting, abdominal pain, or any other acute concerns. Finish the previously prescribed Keflex. Medical Decision Making This is a pleasant and delightful 72-year-old female who presents with epigastric and anterior chest burning pain that awoke her in the middle of the night. Is been constant, nonradiating. She denies having shortness of breath, no recent travel, leg pain or swelling. She arrives to the ER alert and interactive, in no acute distress. Her exam does reveal some tenderness in the epigastrium Difficult diagnosis includes GERD, esophageal irritation, ACS. Patient IV access established, given Protonix IV, screening labs obtained. She will note that she has been treated for UTI with Keflex. Urinalysis was also obtained and no evidence of active infection. Remainder of laboratories: White count 9, hematocrit 41, platelets 301. Sodium 139, potassium 3.3 and supplemented in the ER, chloride 103, bicarb 29, BUN 16, creatinine 0.8. AST 21, ALT 43. She was observed and 2 troponins obtained and negative. Chest x-ray no acute disease. Well in the ER the patient had a shaking chill. As above, she has been on nearly 2 weeks of antibiotics for recurrent UTI. Must exclude a pyelonephritis or other intra-abdominal process and patient referred for CT of the abdomen. This reveals right lower quadrant spigelian hernia. This easily reducible on exam. I will refer the patient to outpatient follow-up in surgery clinic. She has had a number of previous abdominal hernia repairs at [facility] and [facility]. We will treat her with 30 days of PPI given response to medication here. She will continue Keflex for its previously prescribed course. She will return for any acute concerns. HPI General Mode of arrival: ambulatory . Date/Time Provider Initiated Documentation: 10/16/22 09:29 . Limitations to Documentation: no limitations . Information obtained by: patient . History of Present Illness 72 year old F presents to the emergency department with the chief complaint of Burning anterior chest/epigastric pain since last night, described as mild, Quality is described as dull, and is localized to the chest. Patient abdomen. Patient started experiencing this hour(s) and it has been constant. No relieving factors improve symptom(s), No exacerbating factors reported . Patient notes denies chest pain, diaphoresis, fever/chills and syncope. Patient did receive the following treatments prior to arrival, none Related Data Home Medications Medication Instructions Recorded Confirmed albuterol sulfate 90 mcg/actuation 1 puff inhalation Q4H PRN ##1 12/06/13 1 aerosol inhaler epinephrine 0.3 mg/0.3 mL 0.3 mg IM PRN 12/06/13 10/16/22 injection, auto-injector melatonin 5 mg tablet 5 mg PO HS 04/05/18 10/16/22 ascorbic acid (vitamin C) 500 mg See Rx Instructions PO DAILY 03/19/21 10/16/22 capsule hydrochlorothiazide 25 mg tablet 25 mg PO QHS 03/19/21 10/16/22 hydrocodone 5 mg-acetaminophen 300 1 tab PO Q8H PRN 03/19/21 10/16/22 mg tablet (Vicodin) magnesium 250 mg tablet 500 mg PO DAILY 03/19/21 10/16/22 cholecalciferol (vitamin D3) 50 50 mcg PO DAILY 07/29/22 10/16/22 mcg (2,000 unit) capsule diltiazem HCl 60 mg tablet 60 mg PO DAILY 07/29/22 10/16/22 fluticasone propionate 230 2 puff inhalation DAILY 07/29/22 10/16/22 mcg-salmeterol 21 mcg/actuation HFA inhaler (Advair HFA) pantoprazole 40 mg tablet,delayed 40 mg PO DAILY 30 days #30 tabs 10/16/22 release (Protonix) Previous Rx's Medication Instructions Recorded pantoprazole 40 mg tablet,delayed 40 mg PO DAILY 30 days #30 tabs 10/16/22 release (Protonix) Allergies Allergy/AdvReac Type Severity Reaction Status Date / Time sulfamethoxazole Allergy Severe Verified 10/16/22 09:42 [From Bactrim] trimethoprim [From Bactrim] Allergy Severe Verified 10/16/22 09:42 adhesive Allergy Intermediate Skin Rash Verified 10/16/22 09:42 petrolatum,white Allergy Intermediate head ache Verified 10/16/22 09:42 [From Petroleum Jelly] & difficulty breathing prednisone Allergy Intermediate Verified 10/16/22 09:42 sertraline HCl [From Zoloft] Allergy Intermediate Verified 10/16/22 09:42 Sulfa (Sulfonamide Allergy Intermediate Hives Verified 10/16/22 09:42 Antibiotics) latex Allergy Mild Skin Rash Verified 10/16/22 09:42 venom-honey bee Allergy Verified 10/16/22 09:42 ibuprofen AdvReac Intermediate Nausea Verified 10/16/22 09:42 scented chemicals AdvReac Intermediate Uncoded 10/16/22 09:42 General Stated Complaint: Chest Pain MARC: 3 Review of Systems Narrative: 6 systems reviewed and otherwise negative. PFSH All Active Problems (Updated 10/16/22 @ 13:57 by Yaw Lemhan MD) Spigelian hernia (Acute) Other chest pain (Acute) Shoulder injury related to vaccine administration (SIRVA) (Acute) Bursitis of right shoulder (Acute) Back pain, chronic (Acute) Obesity (Chronic) Rotator cuff syndrome of right shoulder (Acute) Anxiety and depression (Chronic) Lumbar radiculopathy (Acute) Dyspnea (Acute) Peripheral neuropathy (Acute) Restless leg syndrome (Acute) Vitamin B12 deficiency (Acute) Shingles (Acute) Scapulalgia (Acute) Vertigo (Acute) Arm pain, right (Acute) Subacromial bursitis of right shoulder joint (Acute) Vaccines and biological substances adverse effect in therapeutic use (Acute) Headache (Acute) Pain of both eyes (Acute) Dry eye syndrome, bilateral (Acute) Dry mouth (Acute) Arthralgia (Acute) Positive antinuclear antibody (Acute) Shoulder pain, right (Acute) Lacunar infarction (Acute) Arthritis of carpometacarpal (CMC) joint of right thumb (Acute) Injection: 01/14/21; 08/21/20 PVC (premature ventricular contraction) (Acute) Right wrist pain (Acute) Subacute right lumbar radiculopathy (Acute) Carpal tunnel syndrome on both sides (Acute) Pre-op evaluation (Acute) Recurrent ventral hernia (Acute) Chronic low back pain with bilateral sciatica (Acute) Weakness (Acute) Leg paresthesia (Acute) Hand anomaly (Acute) SVT (supraventricular tachycardia) (Acute 12/20/15) Hyperlipidemia (Acute) Family history of breast cancer (Acute 12/08/14) Essential hypertension (Acute 12/20/15) Degenerative disk disease (Acute 02/09/15) RLQ pain and RLE radiculopathy Chronic midline low back pain with left-sided sciatica (Acute 12/16/17) Asthma (Acute) Acquired hypothyroidism (Acute 12/20/15) Medical History Calf pain Fibromyalgia GERD (gastroesophageal reflux disease) IBS (irritable bowel syndrome) ERMA (obstructive sleep apnea) ? 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 Pleasant, well groomed, interactive. HEAD: Normocephalic, atraumatic ENT: Mucous membranes moist, oropharynx unremarkable, External ear exam unremarkable EYES: PERRL, EOMI NECK: Full ROM, no LESTER, no menigismus CHEST/RESP: Nontender, clear to auscultation bilateral, no wheeze/rhonchi/rales CARDIOVASCULAR: RRR, no murmur, rub raza. 2+ Rad pulse bilateral ABDOMEN: Soft, tender in the epigastrium without rebound or guarding, no mass. +Bowel sounds EXT: Full ROM, no edema, no rash Neuro: Grossly normal neurologic exam, conversant, interactive. Psych: Speech fluent, thoughts congruent, affect normal Course Vital Signs Vital signs: Vital Signs Pulse 75 10/16/22 09:32 Respiratory Rate 18 10/16/22 09:32 Blood Pressure 149/69 H 10/16/22 09:32 Pulse Oximetry 99 10/16/22 09:32 Pulse 75 10/16/22 09:32 Respiratory Rate 18 10/16/22 09:32 Respiratory Effort Non-Labored 10/16/22 09:38 Blood Pressure 149/69 H 10/16/22 09:32 Blood Pressure Position Sitting 10/16/22 09:32 Pulse Oximetry 99 10/16/22 09:32 Oxygen Delivery Method Room Air 10/16/22 09:32 Oxygen Flow Rate 0 10/16/22 09:32
[2022-10-16 10:01] LABS: Abs Immature Grans 0.05 10^3/uL (0.0-0.06); Absolute Basophil Count 0.04 10^3/uL (0.0-0.2); Absolute Eosinophil Count 0.03 10^3/uL (0.0-0.7); Absolute Lymphocyte Count 1.56 10^3/uL (1.2-3.4); Absolute Monocyte Count 0.44 10^3/uL (0.1-0.8); Basophils % 0.4; Eosinophils % 0.3; HCT 41.8 % (36.0-46.0); HGB 13.6 g/dL (11.2-15.7); Immature Grans % 0.5; Lymphocytes % 17.1; MCH 28.2 pg (27.0-33.0); MCHC 32.5 % (32.0-36.0); MCV 87 fL (80-95); MPV 9.5 fL (8.0-11.0); Monocytes % 4.8; Neutrophils % 76.9; Platelet Count 301 10^3/uL (130-400); RBC 4.82 10^6/uL (3.93-5.22); RDW 12.8 % (11.7-14.6); RDW-SD 40.3 fL; WBC 9.12 10^3/uL (4.4-10.8)
[2022-10-16] MEDS: Pantoprazole 40 MG VIAL IVP (10:14)
[2022-10-16] MEDS: Normal Saline 50 ML (10:14)
[2022-10-16 10:15] LABS: Bilirubin Negative (Negative); Blood Negative (Negative); Clarity Clear (Clear); Glucose Negative (Negative); Ketones Negative (Negative); Leukocyte Esterase Negative (Negative); Nitrite Negative (Negative); Urobilinogen 0.2 EU/dL (Up TO 0.2); pH 6.5 (5-8)
[2022-10-16] MEDS: Normal Saline 500 ML 1000 ML IV (10:15)
[2022-10-16 10:20] LABS: ALT 43 U/L (14-59); AST 21 U/L (15-37); Albumin 3.7 g/dL (3.4-5.0); Alkaline Phosphatase 69 U/L (46-116); Anion Gap 6.4 mmol/L (3-11); BUN 16 mg/dL (7-18); Bilirubin, Total 0.6 mg/dL (0.2-1.0); CO2 29.6 mmol/L (21.0-32.0); CREATININE 0.8 mg/dL (0.55-1.02); Calcium 9.1 mg/dL (8.5-10.1); Chloride 103 mmol/L (98-107); Estimated GFR 79.22 (mL/min/1.73m2); Glucose 115 mg/dL (74-106); Magnesium 1.8 mg/dL (1.8-2.4); Potassium 3.3 mmol/L (3.5-5.1); Sodium 139 mmol/L (136-145); Total Protein 7.5 g/dL (6.4-8.2); Troponin I 50 ng/L (<or=60)
--- NOTE | 2022-10-16 10:30 | DI.RAD_ITS ---
Exam(s) XR CHEST 2V PA LATERAL EXAM: XR CHEST 2V PA LATERAL CLINICAL HISTORY: Anterior/epigastric pain.. TECHNIQUE: 2D digital imaging was performed. COMPARISON: CR XR CHEST 2V PA LATERAL from 03/07/2020 FINDINGS: 2 views: Heart size is normal. The mediastinum is not widened. Lungs are clear. No infiltrates nor pleural effusions. IMPRESSION: No acute pulmonary findings. DATA REPOSITORY: RADIATION DOSE DELIVERED:
[2022-10-16] MEDS: Potassium Chloride 20 MEQ TABCR 10 MEQ PO (10:35)
--- NOTE | 2022-10-16 10:49 | RT.EKG_ITS ---
APPROVED REPORT Exam: Resting ECG Reason for Exam: Patient Location: E HR:73 bpm ECG Measurements Heart Rate 73 AXIS [place] 68 P 0 QRSd 102 QRS 33 QT 411 T 34 QTc 453 Conclusion Sinus rhythm. Low voltage, precordial leads
[2022-10-16 11:14] LABS: Lipase 87 U/L (73-393)
[2022-10-16] MEDS: MORPHine 10 MG/ML VIAL 4 MG IVP (11:29)
[2022-10-16 12:52] LABS: Troponin I < 50 ng/L (<or=60)
[2022-10-16] MEDS: Omnipaque 350 MG/ML 100 ML BTL IJ (13:00)
--- NOTE | 2022-10-16 13:00 | RT.EKG_ITS ---
APPROVED REPORT Exam: Resting ECG Reason for Exam: REPEAT Patient Location: E HR:66 bpm ECG Measurements Heart Rate 66 AXIS [place] 158 P 36 QRSd 88 QRS 13 QT 411 T 29 QTc 430 Conclusion Sinus rhythm.. Ventricular premature complex.
--- NOTE | 2022-10-16 13:00 | DI.CT_ITS ---
Exam(s) CT ABDOMEN PELVIS W EXAM: CT ABDOMEN PELVIS W CLINICAL HISTORY: lower abd pain, recurrent UTIs. TECHNIQUE: Imaging Protocol: Axial computed tomography images with coronal and sagittal reformatted images were created and reviewed CONTRAST MATERIAL: Intravenous: Omnipaque-350 100cc Oral: None COMPARISON: CT CT ABDOMEN PELVIS W from 05/06/2021 FINDINGS: VISUALIZED LUNG BASES: Mild atelectasis noted in the right lung base. This is unchanged from prior C T scan of 05/06/2021.. ABDOMEN: Again noted is a a small hiatal hernia and what appears to be a 2.5 x 1.2 cm diverticulum off the dis su duodenum, previously documented. There is no ascites. LIVER: There are no focal hepatic lesions evident. Small calcified granulomas are again noted in the liver. No dilated intrahepatic ducts. GALLBLADDER/BILIARY: The gallbladder is again noted to be surgically absent. CBD is not dilated. PANCREAS: No evidence of pancreatic mass nor dilatation of the pancreatic duct. SPLEEN: Small calcified splenic granulomas are also again noted. Spleen size is upper normal. No si gnificant splenic lesions. Splenic and portal veins are patent. ADRENALS: There are no significant adrenal masses. KIDNEYS:No cysts evident. No solid renal masses. No calculi nor hydronephrosis.. ABDOMINAL AORTA: Abdominal aorta is not enlarged. LYMPH NODES:There is no retroperitoneal nor paraaortic adenopathy. ABDOMINAL WALL/GI: Again noted is a right lower quadrant anterior abdominal hernia. This hernia sac was previously present but now contains most of the cecum. The ileocecal valve and distal most termi nal ileum are at the neck of the hernia sac. The appendix is still projecting into the abdominal ca vity. There is no small bowel obstruction at this level. There is no fluid in the hernia sac around the contain cecum. The actual distal terminal ileum is still in the abdomen. There is no evidence of small bowel obstruction, free air, nor abscess. PELVIS: GI: No evidence of appendicitis.No evidence of sigmoid diverticulitis. LYMPH NODES: There is no intrapelvic nor inguinal adenopathy. REPRODUCTIVE: Uterus size is normal. No ovarian masses. No extra ovarian masses in the pelvis. No free fluid. URINARY BLADDER: No calculi nor obvious masses evident OSSEOUS: No significant osseous lesions. IMPRESSION: 1. Compared to the prior CT scan of 05/06/2021 there is again noted a right lateral abdominal wall Sp igelian hernia in the pelvis which now contains most of the cecum and the ileocecal valve and most te rminal ileum are at the neck of the hernia sac, with the appendix projecting into the abdominal cavit y and the appendix not being in the hernia sac at this time. The length of cecum extending into the sac is approximately 8-9 cm. There is no bowel obstruction at this level. No free fluid nor free ai r in the sac nor in the abdominal cavity at this time. 2. Hiatal hernia and probable distal esophageal diverticulum are again noted, similar to the prior st udy 3. Gallbladder surgically absent. CBD is not dilated. 4. Other findings as above. Called by myself to ER physician RADIATION DOSE DELIVERED: 1,244.87mGy.cm Total DLP DATA REPOSITORY: All CT scans at this facility are submitted to the National Radiology Data Registry (NRDR) Dose Index Registry (DIR) with the [employer] (ACR). RADIATION OPTIMIZATION: All CT scans at this facility use at least one of these dose optimization te chniques: automated exposure control; mA and/or kV adjustment per patient size (includes targeted exa ms where dose is matched to clinical indication); or iterative reconstruction.
[2022-10-16] MEDS: Normal Saline - Diluent 50 ML VIAL IJ (13:01)
[2022-10-16] MEDS: Normal Saline Flush 10 ML SYR IVP (13:01)
--- NOTE | 2022-10-16 15:25 | NUR.NOTE ---
Nursing Note: Referral faxed to [facility] Surgery for abdominal hernia in 2 weeks
== END 2022-10-16 14:15 | disposition home or self-care (01) ==
PROVIDERS: Emergency Provider Emergency Medicine; PCP Family Medicine
DX: K43.9 Ventral hernia without obstruction or gangrene (principal); N39.0 Urinary tract infection, site not specified; Z90.79 Acquired absence of other genital organ(s)
CPT/HCPCS: 80053; 83690; 93005; 96374; 99285; 71046; 74177; 81003; 83735; 84484; 85025; 93010; J2270; J3490

== ENCOUNTER 2022-10-21 21:55 | Outpatient (REF) | payer MEDICARE, OTHER, SELFPAY ==
[2022-10-21 22:00] LABS: Bilirubin Negative (Negative); Blood Trace-intact (Negative); Clarity Clear (Clear); Glucose Negative (Negative); Ketones Negative (Negative); Leukocyte Esterase Negative (Negative); Nitrite Negative (Negative); Urobilinogen 0.2 EU/dL (Up TO 0.2)
[2022-10-21 22:10] LABS: Bacteria Few HPF (Negative); C & S Indicated? No; Crystals Negative HPF (Negative); Epithelial Cells Rare HPF (Negative); Mucus Negative (Negative); WBC 0-2 HPF (0-5)
== END 2022-10-21 21:56 | disposition home or self-care (01) ==
LOC: LBN 21:55
PROVIDERS: PCP Family Medicine; Visit Provider Family Medicine
DX: N39.0 Urinary tract infection, site not specified (principal)
CPT/HCPCS: 81003; 81015

== ENCOUNTER 2022-10-23 10:39 | Emergency (ER) | payer MEDICARE, OTHER, SELFPAY ==
[2022-10-23 10:53] VITALS: BP 147/82; PULSE 73; RESP 18; TEMP 36.7; O2SAT 98
--- NOTE | 2022-10-23 12:00 | RT.EKG_ITS ---
APPROVED REPORT Exam: Resting ECG Reason for Exam: shortness of breath, pain Patient Location: E HR:62 bpm ECG Measurements Heart Rate 62 AXIS [place] 148 P 1 QRSd 82 QRS 18 QT 410 T 61 QTc 417 Conclusion Sinus rhythm...normal P axis, V-rate 60- 99
[2022-10-23 12:44] LABS: Abs Immature Grans 0.05 10^3/uL (0.0-0.06); Absolute Basophil Count 0.05 10^3/uL (0.0-0.2); Absolute Eosinophil Count 0.05 10^3/uL (0.0-0.7); Absolute Lymphocyte Count 1.56 10^3/uL (1.2-3.4); Absolute Monocyte Count 0.56 10^3/uL (0.1-0.8); Absolute Neutrophil Count 5.84 10^3/uL (1.2-6.7); Basophils % 0.6; Eosinophils % 0.6; HCT 43.8 % (36.0-46.0); HGB 14.3 g/dL (11.2-15.7); Immature Grans % 0.6; Lymphocytes % 19.2; MCH 28.4 pg (27.0-33.0); MCHC 32.6 % (32.0-36.0); MCV 87 fL (80-95); MPV 9.5 fL (8.0-11.0); Monocytes % 6.9; Neutrophils % 72.1; Platelet Count 333 10^3/uL (130-400); RBC 5.03 10^6/uL (3.93-5.22); RDW 12.8 % (11.7-14.6); RDW-SD 40.9 fL; WBC 8.11 10^3/uL (4.4-10.8)
[2022-10-23 13:14] LABS: ALT 43 U/L (14-59); AST 23 U/L (15-37); Albumin 3.9 g/dL (3.4-5.0); Alkaline Phosphatase 70 U/L (46-116); Anion Gap 6.4 mmol/L (3-11); BUN 13 mg/dL (7-18); Bilirubin, Total 0.6 mg/dL (0.2-1.0); CO2 31.6 mmol/L (21.0-32.0); CREATININE 0.8 mg/dL (0.55-1.02); Calcium 9.2 mg/dL (8.5-10.1); Chloride 101 mmol/L (98-107); Creatine Kinase 61 U/L (26-192); Estimated GFR 79.22 (mL/min/1.73m2); Glucose 100 mg/dL (74-106); Potassium 3.4 mmol/L (3.5-5.1); Sodium 139 mmol/L (136-145); TSH (W/Ref FT4) 0.74 uIU/mL (0.36-3.74); Total Protein 7.8 g/dL (6.4-8.2); Troponin I < 50 ng/L (<or=60)
[2022-10-23 13:30] LABS: D-Dimer 489 ng/mlFEU (<500)
--- NOTE | 2022-10-23 14:00 | DI.RAD_ITS ---
Exam(s) XR CHEST 2V PA LATERAL EXAM: XR CHEST 2V PA LATERAL CLINICAL HISTORY: shortness. TECHNIQUE: 2D digital imaging was performed. COMPARISON: CR XR CHEST 2V PA LATERAL from 03/07/2020 CR XR CHEST 2V PA LATERAL from 10/16/2022 FINDINGS: 2 views: Heart size is normal. The mediastinum is not widened. Platelike atelectasis noted adjacent to inferior left heart border in inferior lingular segment. No other pulmonary findings and no pleural effusions. IMPRESSION: Platelike atelectasis in the inferior lingular segment left lung. DATA REPOSITORY: RADIATION DOSE DELIVERED:
--- NOTE | 2022-10-24 20:45 | W.ED.GENAD ---
Discharge Plan Disposition Patient Disposition: Home Condition: Stable Discharge Details Clinical Impression: Malaise, Jittery, Acute hypokalemia Primary Care Provider: Lidia Whelan V ED Provider: Holli Albarado Home Meds and New Rx's Prescriptions: New potassium chloride [K-Tab] 20 mEq tablet extended release 20 meq PO DAILY Qty: 7 0RF lorazepam [Ativan] 0.5 mg tablet 0.5 mg PO DAILY PRNQty: 6 0RF Continued hydrocodone-acetaminophen [Vicodin] 5-300 mg tablet 1 tab PO Q8H PRN Label Comments: PER PATIENT ascorbic acid (vitamin C) 500 mg capsule See Rx Instructions PO DAILY Rx Instructions: 1 cap PO daily; magnesium 250 mg tablet 500 mg PO DAILY epinephrine 0.3 MG/0.3 ML auto-injector 0.3 mg IM PRN albuterol sulfate 8.5 GM HFA aerosol inhaler 1 puff Inhalation Q4H PRN Qty: 1 melatonin 5 MG tablet 5 mg PO HS Advair HFA 230-21 mcg/actuation HFA aerosol inhaler 2 puff inhalation DAILY diltiazem HCl 60 mg tablet 60 mg PO DAILY cholecalciferol (vitamin D3) 50 mcg (2,000 unit) capsule 50 mcg PO DAILY hydrochlorothiazide 25 mg tablet 25 mg PO QHS pantoprazole [Protonix] 40 mg tablet,delayed release (DR/EC) 40 mg PO DAILY 30 Days Qty: 30 0RF Discharge Instructions Instructions: Hypokalemia (ED) Additional Instructions: Take potassium as prescribed Take Ativan as needed, half a milligram every 6-8 hours as needed for anxiety do not take at the same time as your [place] as it may make you drowsy or lightheaded Follow-up with your doctor Take probiotic as you have been on numerous antibiotics Recheck in 48 to 72 hours recommended Return earlier should you have any worsening complaints Referrals: Lidia Whelan MD [Primary Care Provider] - Discharge Data Discharge Date/Time-TO BE ENTERED AT DEPARTURE: 10/23/22 15:16 Medical Decision Making This 72-year-old female presenting with multiple complaints and secondary to age and comorbidities with clinical signs and symptoms I did order labs, labs are reassuring, potassium is mildly decreased at 3.4, this was supplemented for home Urinalysis is clear Chest x-ray does not show evidence of pneumonia Patient is ambulatory with steady gait, fully alert and oriented I see no clear indication to admit this patient at this time, she has stable exam, vitals, and labs Her COVID and flu are negative D-dimer is within normal limits this is reassuring She is encouraged to follow-up with her primary care physician Certainly this could be adverse effect from ciprofloxacin She is aware of this and will continue to hydrate, take Tylenol as needed and return earlier should she have new or worsening complaints She will use her inhaler as needed although she is not hypoxic, tachypneic, or tachycardic She is referred back to her primary care physician Return precautions discussed and patient expressed standing Medical Records Medical records reviewed: Yes I reviewed the patient's medical records. Lab Data Lab results reviewed: Yes I reviewed the patient's lab results. HPI General Date/Time Provider Initiated Documentation: 10/23/22 11:33. HPI Narrative: This 72-year-old female presents for the second time in a week for report of shortness of breath, chest tightness, chills, pruritus, anxiety, and lightheadedness. She states that she was treated for urinary tract infection approximately 3 weeks ago but it was a challenging course she had allergic reaction to one of the antibiotics and was subsequently switched to ciprofloxacin which she is wondering Percepta if it may have precipitated her symptoms. She states that her symptoms have not changed over the course of the week they have been more persistent in nature. She denies any calf pain or swelling or history of coagulopathy. She denies any residual urinary symptoms. She denies any known sick contacts. Related Data Home Medications Medication Instructions Recorded Confirmed albuterol sulfate 90 mcg/actuation 1 puff inhalation Q4H PRN ##1 12/06/13 10/23/22 aerosol inhaler epinephrine 0.3 mg/0.3 mL 0.3 mg IM PRN 12/06/13 10/23/22 injection, auto-injector melatonin 5 mg tablet 5 mg PO HS 04/05/18 10/23/22 ascorbic acid (vitamin C) 500 mg See Rx Instructions PO DAILY 03/19/21 10/23/22 capsule hydrochlorothiazide 25 mg tablet 25 mg PO QHS 03/19/21 10/23/22 hydrocodone 5 mg-acetaminophen 300 1 tab PO Q8H PRN 03/19/21 10/23/22 mg tablet (Vicodin) magnesium 250 mg tablet 500 mg PO DAILY 03/19/21 10/23/22 cholecalciferol (vitamin D3) 50 50 mcg PO DAILY 07/29/22 10/23/22 mcg (2,000 unit) capsule diltiazem HCl 60 mg tablet 60 mg PO DAILY 07/29/22 10/23/22 fluticasone propionate 230 2 puff inhalation DAILY 07/29/22 10/23/22 mcg-salmeterol 21 mcg/actuation HFA inhaler (Advair HFA) pantoprazole 40 mg tablet,delayed 40 mg PO DAILY 30 days #30 tabs 10/16/22 10/23/22 release (Protonix) lorazepam 0.5 mg tablet (Ativan) 0.5 mg PO DAILY PRN #6 tabs 10/23/22 potassium chloride 20 mEq 20 meq PO DAILY #7 tabs 10/23/22 tablet,extended release (K-Tab) Previous Rx's Medication Instructions Recorded pantoprazole 40 mg tablet,delayed 40 mg PO DAILY 30 days #30 tabs 10/16/22 release (Protonix) lorazepam 0.5 mg tablet (Ativan) 0.5 mg PO DAILY PRN #6 tabs 10/23/22 potassium chloride 20 mEq 20 meq PO DAILY #7 tabs 10/23/22 tablet,extended release (K-Tab) Allergies Allergy/AdvReac Type Severity Reaction Status Date / Time sulfamethoxazole Allergy Severe Verified 10/23/22 15:07 [From Bactrim] trimethoprim [From Bactrim] Allergy Severe Verified 10/23/22 15:07 adhesive Allergy Intermediate Skin Rash Verified 10/23/22 15:07 petrolatum,white Allergy Intermediate head ache Verified 10/23/22 15:07 [From Petroleum Jelly] & difficulty breathing prednisone Allergy Intermediate Verified 10/23/22 15:07 sertraline HCl [From Zoloft] Allergy Intermediate Verified 10/23/22 15:07 Sulfa (Sulfonamide Allergy Intermediate Hives Verified 10/23/22 15:07 Antibiotics) latex Allergy Mild Skin Rash Verified 10/23/22 15:07 venom-honey bee Allergy Verified 10/23/22 15:07 ibuprofen AdvReac Intermediate Nausea Verified 10/23/22 15:07 scented chemicals AdvReac Intermediate Uncoded 01/05/23 15:07 General Stated Complaint: GenMedical MARC: 4 Review of Systems All systems reviewed & are unremarkable except as noted in HPI and below PFSH All Active Problems (Updated 10/23/22 @ 14:59 by OSWALD Ross) Spigelian hernia (Acute) Malaise (Acute) Jittery (Acute) Acute hypokalemia (Acute) Other chest pain (Acute) Shoulder injury related to vaccine administration (SIRVA) (Acute) Bursitis of right shoulder (Acute) Back pain, chronic (Acute) Obesity (Chronic) Rotator cuff syndrome of right shoulder (Acute) Anxiety and depression (Chronic) Lumbar radiculopathy (Acute) Dyspnea (Acute) Peripheral neuropathy (Acute) Restless leg syndrome (Acute) Vitamin B12 deficiency (Acute) Shingles (Acute) Scapulalgia (Acute) Vertigo (Acute) Arm pain, right (Acute) Subacromial bursitis of right shoulder joint (Acute) Vaccines and biological substances adverse effect in therapeutic use (Acute) Headache (Acute) Pain of both eyes (Acute) Dry eye syndrome, bilateral (Acute) Dry mouth (Acute) Arthralgia (Acute) Positive antinuclear antibody (Acute) Shoulder pain, right (Acute) Lacunar infarction (Acute) Arthritis of carpometacarpal (CMC) joint of right thumb (Acute) Injection: 01/14/21; 08/21/20 PVC (premature ventricular contraction) (Acute) Right wrist pain (Acute) Subacute right lumbar radiculopathy (Acute) Carpal tunnel syndrome on both sides (Acute) Pre-op evaluation (Acute) Recurrent ventral hernia (Acute) Chronic low back pain with bilateral sciatica (Acute) Weakness (Acute) Leg paresthesia (Acute) Hand anomaly (Acute) SVT (supraventricular tachycardia) (Acute 12/20/15) Hyperlipidemia (Acute) Family history of breast cancer (Acute 12/08/14) Essential hypertension (Acute 12/20/15) Degenerative disk disease (Acute 02/09/15) RLQ pain and RLE radiculopathy Chronic midline low back pain with left-sided sciatica (Acute 12/16/17) Asthma (Acute) Acquired hypothyroidism (Acute 12/20/15) Medical History Calf pain Fibromyalgia GERD (gastroesophageal reflux disease) IBS (irritable bowel syndrome) ERMA (obstructive sleep apnea) ? unsure on dx Vitamin D deficiency Surgical History Cholecystectomy (~2007) History of abdominal hernia multiple surgeries; 2 in 2018 [place] Fundoplication (~2007) x2 Repair of inguinal hernia (09/14/15) Right - done at 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 Exam Const General: cooperative and comfortable Nutritional Appearance: average body habitus Orientation: alert and oriented x3 HENMT Head: normal to inspection Mouth: oral mucosae normal Eyes Sclera: sclerae normal Resp Effort & Inspection: normal respiratory effort Auscultation: clear to auscultation bilaterally Cardio Rate: regular rate GI Inspection: normal to inspection Skin General skin exam: no rashes or lesions noted Neuro General: patient alert and patient oriented x3 Cranial Nerves: CN's II-XI intact bilaterally Cognition: normal cognition Speech: speech normal Gait: normal gait Extrem General: normal to inspection Course Vital Signs Vital signs: Vital Signs Temperature 36.7 C 10/23/22 10:53 Pulse 73 10/23/22 10:53 Respiratory Rate 18 10/23/22 10:53 Blood Pressure 147/82 H 10/23/22 10:53 Pulse Oximetry 98 10/23/22 10:53 Temperature 36.7 C 10/23/22 10:53 Temperature Source Oral 10/23/22 10:53 Pulse 73 10/23/22 10:53 Respiratory Rate 18 10/23/22 10:53 Respiratory Effort Non-Labored 10/23/22 15:14 Blood Pressure 147/82 H 10/23/22 10:53 Blood Pressure Position Sitting 10/23/22 10:53 Pulse Oximetry 98 10/23/22 10:53 Oxygen Delivery Method Room Air 10/23/22 10:53 Oxygen Flow Rate 0 10/23/22 10:53 Pain Level 3 10/23/22 10:53 Lab/Test Results Lab/Test Results: Laboratory Tests Range/Units 10/23/22 10/23/22 10/23/22 12:30 12:30 12:30 WBC (4.4-10.8) 10^3/uL 8.11 RBC (3.93-5.22) 10^6/uL 5.03 Hgb (11.2-15.7) g/dL 14.3 Hct (36.0-46.0) % 43.8 MCV (80-95) fL 87 MCH (27.0-33.0) pg 28.4 MCHC (32.0-36.0) % 32.6 RDW (11.7-14.6) % 12.8 Plt Count (130-400) 10^3/uL 333 MPV (8.0-11.0) fL 9.5 Immature Gran % 0.6 Neutrophils % 72.1 Lymphocytes % 19.2 Monocytes % 6.9 Eosinophils % 0.6 Basophils % 0.6 Nucleated RBC % (0.0-0.3) % 0.0 Absolute Neutrophils (1.2-6.7) 10^3/uL 5.84 Absolute Lymphocytes (1.2-3.4) 10^3/uL 1.56 Absolute Monocytes (0.1-0.8) 10^3/uL 0.56 Absolute Eosinophils (0.0-0.7) 10^3/uL 0.05 Absolute Basophils (0.0-0.2) 10^3/uL 0.05 D-Dimer (<500) ng/mlFEU 489 Sodium (136-145) mmol/L 139 Potassium (3.5-5.1) mmol/L 3.4 L Chloride (98-107) mmol/L 101 Carbon Dioxide (21.0-32.0) mmol/L 31.6 Anion Gap (3-11) mmol/L 6.4 BUN (7-18) mg/dL 13 Creatinine (0.55-1.02) mg/dL 0.8 Est GFR (CKD-EPI 2020) (mL/min/1.73m2) 79.22 Glucose (74-106) mg/dL 100 Calcium (8.5-10.1) mg/dL 9.2 Magnesium (1.8-2.4) mg/dL 2.0 Total Bilirubin (0.2-1.0) mg/dL 0.6 AST (15-37) U/L 23 ALT (14-59) U/L 43 Alkaline Phosphatase (46-116) U/L 70 Creatine Kinase (26-192) U/L 61 Troponin I (<or=60) ng/L < 50 Total Protein (6.4-8.2) g/dL 7.8 Albumin (3.4-5.0) g/dL 3.9 TSH (0.36-3.74) uIU/mL 0.74 Range/Units 10/23/22 15:09 WBC (4.4-10.8) 10^3/uL RBC (3.93-5.22) 10^6/uL Hgb (11.2-15.7) g/dL Hct (36.0-46.0) % MCV (80-95) fL MCH (27.0-33.0) pg MCHC (32.0-36.0) % RDW (11.7-14.6) % Plt Count (130-400) 10^3/uL MPV (8.0-11.0) fL Immature Gran % Neutrophils % Lymphocytes % Monocytes % Eosinophils % Basophils % Nucleated RBC % (0.0-0.3) % Absolute Neutrophils (1.2-6.7) 10^3/uL Absolute Lymphocytes (1.2-3.4) 10^3/uL Absolute Monocytes (0.1-0.8) 10^3/uL Absolute Eosinophils (0.0-0.7) 10^3/uL Absolute Basophils (0.0-0.2) 10^3/uL D-Dimer (<500) ng/mlFEU Sodium (136-145) mmol/L Potassium (3.5-5.1) mmol/L Chloride (98-107) mmol/L Carbon Dioxide (21.0-32.0) mmol/L Anion Gap (3-11) mmol/L BUN (7-18) mg/dL Creatinine (0.55-1.02) mg/dL Est GFR (CKD-EPI 2020) (mL/min/1.73m2) Glucose (74-106) mg/dL Calcium (8.5-10.1) mg/dL Magnesium (1.8-2.4) mg/dL Total Bilirubin (0.2-1.0) mg/dL AST (15-37) U/L ALT (14-59) U/L Alkaline Phosphatase (46-116) U/L Creatine Kinase (26-192) U/L Troponin I (<or=60) ng/L Cancelled Total Protein (6.4-8.2) g/dL Albumin (3.4-5.0) g/dL TSH (0.36-3.74) uIU/mL
== END 2022-10-23 15:16 | disposition home or self-care (01) ==
PROVIDERS: Emergency Provider Physician Assistant; PCP Family Medicine
DX: E87.6 Hypokalemia (principal); R53.81 Other malaise; R45.1 Restlessness and agitation; Z20.822 Contact with and (suspected) exposure to COVID-19
CPT/HCPCS: 80053; 82550; 93005; 99284; 99285; 71046; 83735; 84443; 84484; 85025; 85379; 93010

== ENCOUNTER 2022-10-28 15:15 | Outpatient (REF) | payer MEDICARE, OTHER, SELFPAY | END 2022-10-28 15:16 | disposition home or self-care (01) | LOC: NCHCN 15:15 | PROVIDERS: PCP Family Medicine; Visit Provider Family Medicine | DX: R30.0 Dysuria (principal) | CPT/HCPCS: 87086 ==

== ENCOUNTER 2022-11-04 10:16 | Outpatient (CLI) | payer MEDICARE, OTHER, SELFPAY ==
[2022-11-04 11:04] LABS: Anion Gap 8.4 mmol/L (3-11); BUN 12 mg/dL (7-18); CO2 30.6 mmol/L (21.0-32.0); CREATININE 0.9 mg/dL (0.55-1.02); Calcium 9.7 mg/dL (8.5-10.1); Chloride 102 mmol/L (98-107); Estimated GFR 68.77 (mL/min/1.73m2); Glucose 110 mg/dL (74-106); Potassium 3.6 mmol/L (3.5-5.1); Sodium 141 mmol/L (136-145)
== END 2022-11-04 10:17 | disposition home or self-care (01) ==
LOC: LBO 10:17
PROVIDERS: PCP Family Medicine; Visit Provider Family Medicine
DX: E87.6 Hypokalemia (principal)
CPT/HCPCS: 36415; 80048

== ENCOUNTER 2022-11-04 10:19 | Outpatient (REF) | payer MEDICARE, OTHER, SELFPAY ==
--- NOTE | 2022-11-04 09:40 | PAPFT_PTH ---
PATIENT: Leny Lowe LOC: [facility] U#:[id number] AGE/SX: 72/F ROOM: RE11/04/[address]: Mone Hargrove DO : 1950 BED: DIS: 11/04/2022 SPEC #: [id number] RECD: 11/04/22 12:39 STATUS: STAN REQ #: [id number] DARIELA: 11/04/22 09:[address]: Mone Hargrove DEPT: [facility] Cytology RECD BY: Holli Barbour ENTERED: 11/04/22 12:40 SP TYPE: PAPFT OTHR DR: Lidia Whelan V Tissues: 1 - CX/ENDOCX FOR PAP SMEARS Procedures: PAP THIN PREP/[facility] Screening HPV DNA PROBE Comments: [id number]
== END 2022-11-04 10:20 | disposition home or self-care (01) ==
LOC: LBN 10:19
PROVIDERS: PCP Family Medicine; Visit Provider Obstetrics & Gynecology
DX: Z11.51 Encounter for screening for human papillomavirus (HPV); Z01.419 Encounter for gynecological examination (general) (routine) without abnormal findings
CPT/HCPCS: 88142; 87624

== ENCOUNTER → 2022-11-06 08:54 | Outpatient (BNVA) | payer MEDICARE, OTHER, SELFPAY | PROVIDERS: PCP Family Medicine; Referring Provider Family Medicine; Visit Provider Surgery | DX: K43.9 Ventral hernia without obstruction or gangrene (principal); R10.9 Unspecified abdominal pain; R06.02 Shortness of breath; E66.9 Obesity, unspecified; G89.29 Other chronic pain | CPT/HCPCS: 99214; 99242 ==

== ENCOUNTER 2022-11-14 10:36 | Emergency (ER) | payer MEDICARE, OTHER, SELFPAY ==
[2022-11-14 10:40] VITALS: BP 152/87; PULSE 75; RESP 18; TEMP 36.9; O2SAT 99
--- NOTE | 2022-11-14 10:45 | DI.CT_ITS ---
Exam(s) CT ABDOMEN PELVIS W EXAM: CT ABDOMEN PELVIS W CLINICAL HISTORY: abd pain, hx of obstruction TECHNIQUE: Imaging Protocol: Axial computed tomography images with coronal and sagittal reformatted images were created and reviewed CONTRAST MATERIAL: Intravenous: Omnipaque 350 Contrast volume:100 mL Oral: No COMPARISON: CT CT ABDOMEN PELVIS W from 10/16/2022 FINDINGS: ABDOMEN: Lung Bases: Postsurgical changes at the gastroesophageal junction. Liver: Normal density. No measurable mass. There are calcified granuloma again seen in the liver. Portal, Superior Mesenteric, and Splenic Veins: Unremarkable. Gallbladder and Biliary Tract: Status post cholecystectomy. No significant biliary ductal dilatation . Pancreas: Normal density, no abnormal calcifications or inflammatory process. Spleen: Calcified granuloma are seen in the spleen. Adrenals: No masses seen. Kidneys: Normal size, contour and axis. No radiodense stones or obstructive uropathy. No masses seen. Abdominal Aorta: Abdominal portion non-dilated. Atherosclerosis is present. Bowel: No obstruction or bowel wall thickening. There is a right lower anterior abdominal wall hernia containing an unremarkable loop of small bowel. No evidence of obstruction or incarceration. Peritoneal Cavity: No ascites, collection or mesenteric inflammatory response. No free air. Lymph Nodes: Within normal limits. Bones: Within normal limits for the patient's age. Soft Tissues: Unremarkable. PELVIS: Bladder: Symmetric distention, no gross wall thickening. Reproductive Organs: Unremarkable as visualized. Lymph Nodes: Within normal limits. Bones: Within normal limits for the patient's age. IMPRESSION: 1. No acute abdominal or pelvic process. 2. Right lower anterior abdominal wall hernia containing a loop of small bowel. No evidence of incar ceration or obstruction. 3. Findings were discussed with Parish Shields at 1:22 p.m. on 11/14/2022. RADIATION DOSE DELIVERED: 1,390.73mGy.cm Total DLP DATA REPOSITORY: All CT scans at this facility are submitted to the National Radiology Data Registry (NRDR) Dose Index Registry (DIR) with the [employer] (A[employer]). RADIATION OPTIMIZATION: All CT scans at this facility use at least one of these dose optimization te chniques: automated exposure control; mA and/or kV adjustment per patient size (includes targeted exa ms where dose is matched to clinical indication); or iterative reconstruction.
--- NOTE | 2022-11-14 11:12 | ED.GENADUL_ITS ---
Discharge Plan Disposition Patient Disposition: Home Condition: Stable Discharge Details Clinical Impression: Abdominal pain, Abdominal wall hernia Primary Care Provider: Lidia Whelan V ED Provider: Parish Shields Home Meds and New Rx's Prescriptions: Continued hydrocodone-acetaminophen [Vicodin] 5-300 mg tablet 1 tab PO Q8H PRN Label Comments: PER PATIENT Rx Instructions: duplicate 11/14/22 ascorbic acid (vitamin C) 500 mg capsule 1,000 mg PO DAILY magnesium 250 mg tablet 500 mg PO DAILY diltiazem HCl 60 mg capsule,extended release 12 hr 60 mg PO DAILY up4 Probiotics Adult 15 billion cell capsule 1 cap PO DAILY cranberry 500 mg capsule 500 mg PO BID PRN Rx Instructions: administer with meals nystatin-triamcinolone 100,000-0.1 unit/g-% cream 1 applic topical BID Qty: 60 1RF hydrocodone-acetaminophen 5-325 mg tablet 1 tab PO Q8H PRN CBD oil 16 mg 16 mg oil 16 mg PO HS epinephrine 0.3 MG/0.3 ML auto-injector 0.3 mg IM PRN albuterol sulfate 8.5 GM HFA aerosol inhaler 1 puff Inhalation Q4H PRN Qty: 1 melatonin 5 MG tablet 5 mg PO HS Advair HFA 230-21 mcg/actuation HFA aerosol inhaler 2 puff inhalation DAILY cholecalciferol (vitamin D3) 50 mcg (2,000 unit) capsule 50 mcg PO DAILY hydrochlorothiazide 25 mg tablet 25 mg PO QHS potassium chloride [K-Tab] 20 mEq tablet extended release 20 meq PO DAILY Qty: 7 0RF lorazepam [Ativan] 0.5 mg tablet 0.5 mg PO DAILY PRNQty: 6 0RF Discharge Instructions Instructions: Abdominal Pain (ED), Ventral Hernia (ED) Additional Instructions: Work-up in the ER does not reveal any obvious emergent process, incarceration or obstruction of your hernia. As we discussed clear liquid diet, bowel rest, advance as tolerated. [id number]-ztixivy medications as directed for symptomatic control. Please watch for new or worsening symptoms and return to the ER for any concerns. Lastly, please follow-up with the [facility] surgical team as already scheduled, please contact their office to make them aware of your ER visit, ongoing symptoms, and to see if you can be evaluated sooner. Medical Decision Making This is a 72-year-old female who reports 7 different abdominal wall surgeries for hernia and reconstruction, told that she had a hernia about 1 month ago, reports right-sided abdominal pain for the past 4 days associate with mild nausea, decreased bowel movements over the past 4 days but still having bowel movements, presents specifically concerned about a potential small bowel obstruction. Patient states that she was referred to [facility] surgical team for evaluation of her right sided hernia given her complicated surgical history. This appointment is not scheduled until the end of November. Clinically she appears well, nontoxic, hemodynamically stable, low suspicion for acute strangulated hernia. Plan to obtain IV access, routine screening laboratory values and CT imaging of the abdomen pelvis with IV contrast. Laboratory values are unremarkable. CT imaging reveals right lower anterior abdominal wall hernia containing loop of small bowel, no evidence of incarceration or obstruction Findings discussed with patient and family. Discussed bowel rest, [id number] medications for constipation, and outpatient surgical follow-up to the [facility] team. Standard discharge and return precautions were provided. Patient understands, is agreeable to this plan, and has no additional questions or concerns upon discharge. This documentation was generated using [employer] system, please disregard any oddities of phrase or misspellings. Medical Records Medical records reviewed: Yes I reviewed the patient's medical records. Imaging Data Radiologic Study: Attestation: I personally reviewed and interpreted this imaging study as follows: Imaging: Ultrasound Radiologist's impression: Exam(s) CT ABDOMEN PELVIS W EXAM: CT ABDOMEN PELVIS W CLINICAL HISTORY: abd pain, hx of obstruction TECHNIQUE: Imaging Protocol: Axial computed tomography images with coronal and sagittal reformatted images were created and reviewed CONTRAST MATERIAL: Intravenous: Omnipaque 350 Contrast volume:100 mL Oral: No COMPARISON: CT CT ABDOMEN PELVIS W from 10/16/2022 FINDINGS: ABDOMEN: Lung Bases: Postsurgical changes at the gastroesophageal junction. Liver: Normal density. No measurable mass. There are calcified granuloma again seen in the liver. Portal, Superior Mesenteric, and Splenic Veins: Unremarkable. Gallbladder and Biliary Tract: Status post cholecystectomy. No significant biliary ductal dilatation. Pancreas: Normal density, no abnormal calcifications or inflammatory process. Spleen: Calcified granuloma are seen in the spleen. Adrenals: No masses seen. Kidneys: Normal size, contour and axis. No radiodense stones or obstructive uropathy. No masses seen. Abdominal Aorta: Abdominal portion non-dilated. Atherosclerosis is present. Bowel: No obstruction or bowel wall thickening. There is a right lower anterior abdominal wall hernia containing an unremarkable loop of small bowel. No evidence of obstruction or incarceration. Peritoneal Cavity: No ascites, collection or mesenteric inflammatory response. No free air. Lymph Nodes: Within normal limits. Bones: Within normal limits for the patient's age. Soft Tissues: Unremarkable. PELVIS: Bladder: Symmetric distention, no gross wall thickening. Reproductive Organs: Unremarkable as visualized. Lymph Nodes: Within normal limits. Bones: Within normal limits for the patient's age. IMPRESSION: 1. No acute abdominal or pelvic process. 2. Right lower anterior abdominal wall hernia containing a loop of small bowel. No evidence of incarceration or obstruction. 3. Findings were discussed with Parish Shields at 1:22 p.m. on 11/14/2022. Lab Data Lab results reviewed: Yes I reviewed the patient's lab results. Labs: Laboratory Tests Range/Units 11/14/22 11/14/22 11/14/22 10:45 11:00 11:00 WBC (4.4-10.8) 10^3/uL RBC (3.93-5.22) 10^6/uL Hgb (11.2-15.7) g/dL Hct (36.0-46.0) % MCV (80-95) fL MCH (27.0-33.0) pg MCHC (32.0-36.0) % RDW (11.7-14.6) % Plt Count (130-400) 10^3/uL MPV (8.0-11.0) fL Immature Gran % Neutrophils % Lymphocytes % Monocytes % Eosinophils % Basophils % Nucleated RBC % (0.0-0.3) % Absolute Neutrophils (1.2-6.7) 10^3/uL Absolute Lymphocytes (1.2-3.4) 10^3/uL Absolute Monocytes (0.1-0.8) 10^3/uL Absolute Eosinophils (0.0-0.7) 10^3/uL Absolute Basophils (0.0-0.2) 10^3/uL VBG Lactate (0.6-1.4) mmol/L 1.1 Sodium (136-145) mmol/L 142 Potassium (3.5-5.1) mmol/L 3.5 Chloride (98-107) mmol/L 104 Carbon Dioxide (21.0-32.0) mmol/L 31.3 Anion Gap (3-11) mmol/L 6.7 BUN (7-18) mg/dL 7 Creatinine (0.55-1.02) mg/dL 0.9 Est GFR (CKD-EPI 2020) (mL/min/1.73m2) 68.77 Glucose (74-106) mg/dL 112 H Calcium (8.5-10.1) mg/dL 9.7 Total Bilirubin (0.2-1.0) mg/dL 0.7 AST (15-37) U/L 19 ALT (14-59) U/L 31 Alkaline Phosphatase (46-116) U/L 61 Total Protein (6.4-8.2) g/dL 7.8 Albumin (3.4-5.0) g/dL 4.1 Lipase (73-393) U/L 59 Urine Color (Yellow) Yellow Urine Clarity (Clear) Clear Urine pH (5-8) 6.0 Ur Specific [place] (1.005-1.025) 1.010 Urine Protein (Negative) mg/dL Negative Urine Ketones (Negative) mg/dL Negative Urine Blood (Negative) Trace-intact H Urine Nitrite (Negative) Negative Urine Bilirubin (Negative) Negative Urine Urobilinogen (Up TO 0.2) EU/dL 0.2 Ur Leukocyte Esterase (Negative) Negative Urine RBC (0-2) HPF 0-2 Urine WBC (0-5) HPF 0-2 Ur Epithelial Cells (Negative) HPF Rare Urine Crystals (Negative) HPF Negative Urine Bacteria (Negative) HPF Negative Urine Mucus (Negative) Trace Ur Culture Indicated? No Urine Glucose (Negative) mg/dL Negative Range/Units 11/14/22 11:00 WBC (4.4-10.8) 10^3/uL 8.08 RBC (3.93-5.22) 10^6/uL 5.10 Hgb (11.2-15.7) g/dL 14.6 Hct (36.0-46.0) % 45.3 MCV (80-95) fL 89 MCH (27.0-33.0) pg 28.6 MCHC (32.0-36.0) % 32.2 RDW (11.7-14.6) % 13.0 Plt Count (130-400) 10^3/uL 308 MPV (8.0-11.0) fL 9.8 Immature Gran % 0.4 Neutrophils % 72.5 Lymphocytes % 20.2 Monocytes % 5.9 Eosinophils % 0.4 Basophils % 0.6 Nucleated RBC % (0.0-0.3) % 0.0 Absolute Neutrophils (1.2-6.7) 10^3/uL 5.86 Absolute Lymphocytes (1.2-3.4) 10^3/uL 1.63 Absolute Monocytes (0.1-0.8) 10^3/uL 0.48 Absolute Eosinophils (0.0-0.7) 10^3/uL 0.03 Absolute Basophils (0.0-0.2) 10^3/uL 0.05 VBG Lactate (0.6-1.4) mmol/L Sodium (136-145) mmol/L Potassium (3.5-5.1) mmol/L Chloride (98-107) mmol/L Carbon Dioxide (21.0-32.0) mmol/L Anion Gap (3-11) mmol/L BUN (7-18) mg/dL Creatinine (0.55-1.02) mg/dL Est GFR (CKD-EPI 2020) (mL/min/1.73m2) Glucose (74-106) mg/dL Calcium (8.5-10.1) mg/dL Total Bilirubin (0.2-1.0) mg/dL AST (15-37) U/L ALT (14-59) U/L Alkaline Phosphatase (46-116) U/L Total Protein (6.4-8.2) g/dL Albumin (3.4-5.0) g/dL Lipase (73-393) U/L Urine Color (Yellow) Urine Clarity (Clear) Urine pH (5-8) Ur Specific [place] (1.005-1.025) Urine Protein (Negative) mg/dL Urine Ketones (Negative) mg/dL Urine Blood (Negative) Urine Nitrite (Negative) Urine Bilirubin (Negative) Urine Urobilinogen (Up TO 0.2) EU/dL Ur Leukocyte Esterase (Negative) Urine RBC (0-2) HPF Urine WBC (0-5) HPF Ur Epithelial Cells (Negative) HPF Urine Crystals (Negative) HPF Urine Bacteria (Negative) HPF Urine Mucus (Negative) Ur Culture Indicated? Urine Glucose (Negative) mg/dL HPI General Mode of arrival: ambulatory . Date/Time Provider Initiated Documentation: 11/14/22 10:51 . Limitations to Documentation: no limitations . Information obtained by: patient and family . History of Present Illness 72 year old F presents to the emergency department with the chief complaint of abdominal pain, described as moderate, with intensity rated at 4. Quality is described as aching, and is localized to the abdomen. Patient reports no radiation. Patient started experiencing this day(s) (4) and it has been intermittent. No relieving factors improve symptom(s), No exacerbating factors reported . Patient notes nausea/vomiting (Mild nausea) and other (Decreased bowel movements). Patient did receive the following treatments prior to arrival, none Related Data Home Medications Medication Instructions Recorded Confirmed albuterol sulfate 90 mcg/actuation 1 puff inhalation Q4H PRN ##1 12/06/13 11/14/22 aerosol inhaler epinephrine 0.3 mg/0.3 mL 0.3 mg IM PRN 12/06/13 11/14/22 injection, auto-injector melatonin 5 mg tablet 5 mg PO HS 04/05/18 11/14/22 hydrochlorothiazide 25 mg tablet 25 mg PO QHS 03/19/21 11/14/22 hydrocodone 5 mg-acetaminophen 300 1 tab PO Q8H PRN 03/19/21 11/14/22 mg tablet (Vicodin) magnesium 250 mg tablet 500 mg PO DAILY 03/19/21 11/14/22 cholecalciferol (vitamin D3) 50 50 mcg PO DAILY 07/29/22 11/14/22 mcg (2,000 unit) capsule fluticasone propionate 230 2 puff inhalation DAILY 07/29/22 11/14/22 mcg-salmeterol 21 mcg/actuation HFA inhaler (Advair HFA) lorazepam 0.5 mg tablet (Ativan) 0.5 mg PO DAILY PRN #6 tabs 10/23/22 11/14/22 potassium chloride 20 mEq 20 meq PO DAILY #7 tabs 10/23/22 11/14/22 tablet,extended release (K-Tab) Lactobacillus 1 cap PO DAILY 11/04/22 11/14/22 acidophil,plantar-Bifido no.7 15 billion cell capsule (up4 Probiotics Adult) ascorbic acid (vitamin C) 500 mg 1,000 mg PO DAILY 11/04/22 11/14/22 capsule cranberry 500 mg capsule 500 mg PO BID PRN 11/04/22 11/14/22 diltiazem HCl 60 mg 60 mg PO DAILY 11/04/22 11/14/22 capsule,extended release 12 hr nystatin-triamcinolone 100,000 1 applic topical BID #60 grams 11/04/22 11/14/22 unit/g-0.1 % topical cream CBD oil 16 mg 16 mg PO HS 11/06/22 11/14/22 hydrocodone 5 mg-acetaminophen 325 1 tab PO Q8H PRN 11/06/22 11/14/22 mg tablet Previous Rx's Medication Instructions Recorded lorazepam 0.5 mg tablet (Ativan) 0.5 mg PO DAILY PRN #6 tabs 10/23/22 potassium chloride 20 mEq 20 meq PO DAILY #7 tabs 10/23/22 tablet,extended release (K-Tab) nystatin-triamcinolone 100,000 1 applic topical BID #60 grams 11/04/22 unit/g-0.1 % topical cream Allergies Allergy/AdvReac Type Severity Reaction Status Date / Time sulfamethoxazole Allergy Severe rash Verified 11/14/22 11:45 [From Bactrim] trimethoprim [From Bactrim] Allergy Severe Verified 11/14/22 11:45 venom-honey bee Allergy Severe Anaphylaxis Verified 11/14/22 11:45 adhesive Allergy Intermediate Skin Rash Verified 11/14/22 11:45 petrolatum,white Allergy Intermediate Rash Verified 11/14/22 11:45 [From Petroleum Jelly] prednisone Allergy Intermediate Major Verified 11/14/22 11:45 anxiety and agitation sertraline HCl [From Zoloft] Allergy Intermediate major Verified 11/14/22 11:45 anxiety and agitation Sulfa (Sulfonamide Allergy Intermediate Hives Verified 11/14/22 11:45 Antibiotics) latex Allergy Mild Skin Rash Verified 11/14/22 11:45 amoxicillin Allergy Skin Rash Unverified 11/14/22 11:45 ciprofloxacin [From Cipro] Allergy Skin Rash Unverified 11/14/22 11:45 house dust Allergy Other (See Unverified 11/14/22 11:45 Comment) ibuprofen AdvReac Intermediate Nausea Verified 11/14/22 11:45 scented chemicals AdvReac Intermediate SOB Uncoded 11/14/22 11:45 pollen AdvReac Other (See Uncoded 11/14/22 11:45 Comment) General Stated Complaint: Abd Prob MARC: 3 Review of Systems Constitutional Constitutional: Denies fever(s) Cardiovascular Cardiovascular: Denies chest pain and Denies dyspnea Respiratory Respiratory: Denies cough and Denies dyspnea Gastrointestinal Gastrointestinal: Reports abdominal pain, Denies melena, Denies hematochezia, Reports constipation, Denies diarrhea, Reports nausea and Denies vomiting Genitourinary Genitourinary: Denies dysuria Musculoskeletal Musculoskeletal: Denies back pain Integumentary/Breasts Skin/Breast: Denies rash PFSH All Active Problems (Updated 11/14/22 @ 13:44 by OSWALD Carroll) Abdominal pain (Acute) Abdominal wall hernia (Acute) Recurrent hernia (Acute) Well woman exam with routine gynecological exam (Acute) Atrophic vaginitis (Acute) Vulvar irritation (Acute) Spigelian hernia (Acute) Malaise (Acute) Jittery (Acute) Acute hypokalemia (Acute) Other chest pain (Acute) Shoulder injury related to vaccine administration (SIRVA) (Acute) Bursitis of right shoulder (Acute) Back pain, chronic (Acute) Obesity (Chronic) Rotator cuff syndrome of right shoulder (Acute) Anxiety and depression (Chronic) Lumbar radiculopathy (Acute) Dyspnea (Acute) Peripheral neuropathy (Acute) Restless leg syndrome (Acute) Vitamin B12 deficiency (Acute) Shingles (Acute) Scapulalgia (Acute) Vertigo (Acute) Arm pain, right (Acute) Subacromial bursitis of right shoulder joint (Acute) Vaccines and biological substances adverse effect in therapeutic use (Acute) Headache (Acute) Pain of both eyes (Acute) Dry eye syndrome, bilateral (Acute) Dry mouth (Acute) Arthralgia (Acute) Positive antinuclear antibody (Acute) Shoulder pain, right (Acute) Lacunar infarction (Acute) Arthritis of carpometacarpal (CMC) joint of right thumb (Acute) Injection: 01/14/21; 08/21/20 PVC (premature ventricular contraction) (Acute) Right wrist pain (Acute) Subacute right lumbar radiculopathy (Acute) Carpal tunnel syndrome on both sides (Acute) Pre-op evaluation (Acute) Recurrent ventral hernia (Acute) Chronic low back pain with bilateral sciatica (Acute) Weakness (Acute) Leg paresthesia (Acute) Hand anomaly (Acute) SVT (supraventricular tachycardia) (Acute 12/20/15) Hyperlipidemia (Acute) Family history of breast cancer (Acute 12/08/14) Essential hypertension (Acute 12/20/15) Degenerative disk disease (Acute 02/09/15) RLQ pain and RLE radiculopathy Chronic midline low back pain with left-sided sciatica (Acute 12/16/17) Asthma (Acute) Acquired hypothyroidism (Acute 12/20/15) Medical History Calf pain Fibromyalgia GERD (gastroesophageal reflux disease) IBS (irritable bowel syndrome) ERMA (obstructive sleep apnea) ? 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, 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 Exam Const General: cooperative, healthy appearing, comfortable and no acute distress Orientation: alert and awake HENMT Head: normal to inspection, normocephalic and atraumatic Face and sinus: normal facial exam Mouth: moist mucous membranes Eyes Conjunctivae: conjunctivae normal Neck Neck: normal visual inspection, full ROM, no meningeal signs, trachea midline and supple Resp Effort & Inspection: normal respiratory effort and able to speak in complete sentences Auscultation: clear to auscultation bilaterally Cardio Rate: regular rate Rhythm: regular rhythm GI Inspection: obesity and scar Palpation: soft, not firm, no guarding, no pulsatile masses and tender in the RLQ (mild); with no rebound tenderness Auscultation: hypoactive bowel sounds Back/Spine/Pelvis Back: no CVA tenderness and No back tenderness Skin General skin exam: no rashes or lesions noted Neuro General: patient alert, patient awake, moves all extremities and no focal motor deficits Cognition: normal cognition Speech: speech normal Gait: normal gait Sensory Exam: no sensory deficits noted Psych Appearance: grossly normal Mental Status: mental status grossly normal Course Vital Signs Vital signs: Vital Signs Temperature 36.9 C 11/14/22 10:40 Pulse 75 11/14/22 10:40 Respiratory Rate 18 11/14/22 10:40 Blood Pressure 152/87 H 11/14/22 10:40 Pulse Oximetry 99 11/14/22 10:40 Temperature 36.9 C 11/14/22 10:40 Temperature Source Oral 11/14/22 10:40 Pulse 75 11/14/22 10:40 Respiratory Rate 18 11/14/22 10:40 Respiratory Effort 11/14/22 10:50 Blood Pressure 152/87 H 11/14/22 10:40 Blood Pressure Position Sitting 11/14/22 10:40 Pulse Oximetry 99 11/14/22 10:40 Oxygen Delivery Method Room Air 11/14/22 10:40 Oxygen Flow Rate 0 11/14/22 10:40 Pain Level 3 11/14/22 10:40
[2022-11-14 11:15] LABS: Lactate 1.1 mmol/L (0.6-1.4)
[2022-11-14 11:16] LABS: Abs Immature Grans 0.03 10^3/uL (0.0-0.06); Absolute Basophil Count 0.05 10^3/uL (0.0-0.2); Absolute Eosinophil Count 0.03 10^3/uL (0.0-0.7); Absolute Lymphocyte Count 1.63 10^3/uL (1.2-3.4); Absolute Monocyte Count 0.48 10^3/uL (0.1-0.8); Absolute Neutrophil Count 5.86 10^3/uL (1.2-6.7); Basophils % 0.6; Eosinophils % 0.4; HCT 45.3 % (36.0-46.0); HGB 14.6 g/dL (11.2-15.7); Immature Grans % 0.4; Lymphocytes % 20.2; MCH 28.6 pg (27.0-33.0); MCHC 32.2 % (32.0-36.0); MCV 89 fL (80-95); MPV 9.8 fL (8.0-11.0); Monocytes % 5.9; Neutrophils % 72.5; Platelet Count 308 10^3/uL (130-400); RDW-SD 42.6 fL; WBC 8.08 10^3/uL (4.4-10.8)
[2022-11-14 11:36] LABS: ALT 31 U/L (14-59); AST 19 U/L (15-37); Albumin 4.1 g/dL (3.4-5.0); Alkaline Phosphatase 61 U/L (46-116); Anion Gap 6.7 mmol/L (3-11); BUN 7 mg/dL (7-18); Bilirubin, Total 0.7 mg/dL (0.2-1.0); CO2 31.3 mmol/L (21.0-32.0); CREATININE 0.9 mg/dL (0.55-1.02); Calcium 9.7 mg/dL (8.5-10.1); Chloride 104 mmol/L (98-107); Estimated GFR 68.77 (mL/min/1.73m2); Glucose 112 mg/dL (74-106); Lipase 59 U/L (73-393); Potassium 3.5 mmol/L (3.5-5.1); Sodium 142 mmol/L (136-145); Total Protein 7.8 g/dL (6.4-8.2)
[2022-11-14 11:38] LABS: Bilirubin Negative (Negative); Blood Trace-intact (Negative); Clarity Clear (Clear); Glucose Negative (Negative); Ketones Negative (Negative); Leukocyte Esterase Negative (Negative); Nitrite Negative (Negative); Urobilinogen 0.2 EU/dL (Up TO 0.2)
[2022-11-14 11:50] LABS: Bacteria Negative HPF (Negative); Epithelial Cells Rare HPF (Negative); RBC 0-2 HPF (0-2); WBC 0-2 HPF (0-5)
[2022-11-14 11:51] LABS: C & S Indicated? No; Crystals Negative HPF (Negative); Mucus Trace (Negative)
[2022-11-14] MEDS: Omnipaque 350 MG/ML 100 ML BTL IJ (12:30)
[2022-11-14] MEDS: Normal Saline - Diluent 50 ML VIAL IJ (12:31)
[2022-11-14 13:05] VITALS: BP 122/73; PULSE 66; RESP 19; TEMP 36.7; O2SAT 97
== END 2022-11-14 14:00 | disposition home or self-care (01) ==
PROVIDERS: Emergency Provider Physician Assistant; PCP Family Medicine
DX: K43.9 Ventral hernia without obstruction or gangrene (principal); K59.00 Constipation, unspecified
CPT/HCPCS: 80053; 83690; 99285; 74177; 81003; 81015; 83605; 85025; 99284; J3490

== ENCOUNTER 2022-11-18 01:12 | Outpatient (CLI) | payer MEDICARE, OTHER, SELFPAY ==
--- NOTE | 2022-11-18 08:00 | DI.MAMMO_ITS ---
Exam(s) MAMMO SCREENING EXAM: MAMMO SCREENING CLINICAL HISTORY: screening TECHNIQUE: Bilateral full field digital CC and MLO mammographic images were obtained with 3D tomosyn thesis and utilizing computer aided detection (CAD). COMPARISON: Available for comparison. FINDINGS: Masses/Architectural Distortion: None seen. There is a stable intraparenchymal lymph node in the uppe r-outer quadrant of the left breast. Microcalcifications: No suspicious pleomorphic-type are seen. Skin Thickening/Nipple Retraction: None. IMPRESSION: 1. No significant interval change with no specific features of malignancy noted. 2. Unless there is more urgent need, screening mammography is recommended, as per [place] guidelines. BI-RADS Category 1 - Negative Breast Density - Category B - Scattered areas of fibroglandular density Breast density category C or D implies that the patient has dense breast tissue. Dense breast tissue is very common and is not abnormal but dense breast tissue can make it harder to find cancer on a ma mmogram. Also, dense breast tissue may increase their breast cancer risk. This information about the result of the mammogram report was provided to the patient to raise their awareness. Use this report when you speak with the patient about their risks for breast cancer, which includes their family hist ory. At that time, you may recommend for more screening tests (Ultrasound or MRI) as they might be us eful based on their risk. A negative radiographic report should not delay biopsy if a dominant or clinically suspicious mass is present. Up to ten percent of cancers are not identified on mammography. A negative report may reinforce clinical impression. Adenosis and dense breasts may obscure an underlying neoplasm. False positive reports average 6 to 10%. Patient will receive a letter notifying them of these results.
== END 2022-11-18 01:32 ==
PROVIDERS: PCP Family Medicine; Visit Provider Obstetrics & Gynecology
DX: Z12.31 Encounter for screening mammogram for malignant neoplasm of breast (principal)
CPT/HCPCS: 77063; 77067

== ENCOUNTER 2022-12-11 13:01 | Outpatient (REF) | payer MEDICARE, OTHER, SELFPAY ==
[2022-12-11 15:13] LABS: ESR 11 mm/hr (0-30); HCT 43.8 % (36.0-46.0); HGB 14.2 g/dL (11.2-15.7); MCH 28.5 pg (27.0-33.0); MCHC 32.4 % (32.0-36.0); MCV 88 fL (80-95); Platelet Count 299 10^3/uL (130-400); RBC 4.99 10^6/uL (3.93-5.22); RDW 13.2 % (11.7-14.6); RDW-SD 42.4 fL; WBC 7.99 10^3/uL (4.4-10.8)
[2022-12-11 15:28] LABS: ALT 42 U/L (14-59); AST 20 U/L (15-37); Albumin 3.6 g/dL (3.4-5.0); Alkaline Phosphatase 65 U/L (46-116); Anion Gap 9.1 mmol/L (3-11); BUN 11 mg/dL (7-18); Bilirubin, Direct 0.2 mg/dL (0.0-0.2); Bilirubin, Total 0.6 mg/dL (0.2-1.0); C-Reactive Protein 0.25 mg/dL (0.0-0.3); CO2 27.9 mmol/L (21.0-32.0); CREATININE 0.6 mg/dL (0.55-1.02); Chloride 104 mmol/L (98-107); Glucose 102 mg/dL (74-106); Potassium 3.5 mmol/L (3.5-5.1); Sodium 141 mmol/L (136-145); Total Protein 6.6 g/dL (6.4-8.2)
== END 2022-12-11 13:02 | disposition home or self-care (01) ==
LOC: NCHCN 13:01
PROVIDERS: PCP Family Medicine; Visit Provider Nurse Practitioner Family
DX: L50.8 Other urticaria; M79.7 Fibromyalgia; G62.89 Other specified polyneuropathies
CPT/HCPCS: 80053; 80076; 85027; 85652; 86140

== ENCOUNTER → 2022-12-23 07:57 | Outpatient (BNVA) | payer MEDICARE, OTHER, SELFPAY | PROVIDERS: PCP Family Medicine; Referring Provider Family Medicine; Visit Provider Student in an Organized Health Care Education/Training Program | DX: S49.81XA Other specified injuries of right shoulder and upper arm, initial encounter (principal); M75.51 Bursitis of right shoulder; T50.Z95A Adverse effect of other vaccines and biological substances, initial encounter | CPT/HCPCS: 99213 ==

== ENCOUNTER 2023-01-13 16:29 | Outpatient (REF) | payer MEDICARE, OTHER, SELFPAY ==
--- NOTE | 2023-01-13 08:30 | SKI_PTH ---
PATIENT: Leny Lowe LOC: [facility]#:[id number] AGE/SX: 72/F ROOM: RE01/13/[address]: Lidia Whelan V : 1950 BED: DIS: 01/13/2023 SPEC #: [id number] RECD: 01/13/23 17:43 STATUS: STAN REQ #: [id number] DARIELA: 01/13/23 08:[address]: Lidia Whelan V DEPT: Surgical Specimen RECD BY: Holli Barbour Tissues: 1 - SKIN BIOPSY(SHAVE/PUNCH) Procedures: SKIN LEVEL 4 SPECIAL STAIN 1 Comments: [id number]
== END 2023-01-13 16:30 | disposition home or self-care (01) ==
LOC: NCHCN 16:29
PROVIDERS: PCP Family Medicine; Visit Provider Family Medicine
DX: L30.8 Other specified dermatitis (principal); R21 Rash and other nonspecific skin eruption
CPT/HCPCS: 88305; 88312

== ENCOUNTER 2023-04-16 09:24 | Outpatient (REF) | payer MEDICARE, OTHER, SELFPAY ==
[2023-04-16 17:16] LABS: ESR 9 mm/hr (0-30)
[2023-04-16 17:17] LABS: HCT 40.8 % (36.0-46.0); HGB 13.1 g/dL (11.2-15.7); MCHC 32.1 % (32.0-36.0); MCV 90 fL (80-95); MPV 10.3 fL (8.0-11.0); Platelet Count 286 10^3/uL (130-400); RBC 4.52 10^6/uL (3.93-5.22); RDW 12.5 % (11.7-14.6); RDW-SD 41.4 fL; WBC 6.12 10^3/uL (4.4-10.8)
[2023-04-16 17:35] LABS: BUN 15 mg/dL (7-18); C-Reactive Protein 0.38 mg/dL (0.0-0.3); CREATININE 0.9 mg/dL (0.55-1.02); Calcium 8.9 mg/dL (8.5-10.1); Chloride 102 mmol/L (98-107); Estimated GFR 68.77 (mL/min/1.73m2); FREE T4 0.98 ng/dL (0.76-1.46); Glucose 130 mg/dL (74-106); Potassium 3.6 mmol/L (3.5-5.1); Sodium 142 mmol/L (136-145); TSH 1.06 uIU/mL (0.36-3.74)
[2023-04-16 22:38] LABS: T3,Free 3.8 pg/mL (2.8-5.3)
== END 2023-04-16 09:25 | disposition home or self-care (01) ==
LOC: NCHCN 09:24
PROVIDERS: PCP Family Medicine; Visit Provider Family Medicine
DX: R63.5 Abnormal weight gain (principal); L50.9 Urticaria, unspecified; R59.1 Generalized enlarged lymph nodes; E01.0 Iodine-deficiency related diffuse (endemic) goiter; R13.10 Dysphagia, unspecified
CPT/HCPCS: 80048; 85027; 85652; 84439; 84443; 84481; 86140

== ENCOUNTER 2023-05-06 13:02 | Outpatient (REF) | payer MEDICARE, OTHER, SELFPAY ==
[2023-05-06 12:41] LABS: Vitamin D 25 Total 23.3 ng/mL (30-100)
[2023-05-06 18:55] LABS: Rheumatoid Factor <8.6 IU/mL (<12.0)
[2023-05-07 09:03] LABS: Cyclic Citrullinated Peptide <2.5 U/mL (<5.0)
[2023-05-07 12:51] LABS: Lyme Ab w Rflx to Lyme Confirm Negative (Negative)
[2023-05-07 14:17] LABS: ANA Interpretation Positive (Negative); ANA Titer Pattern 1:160 Homogeneous
[2023-05-09 01:01] LABS: Anaplasma phagocytophilum Negative (Negative); B. miyamotoi PCR Negative (Negative); Babesia divergens/MO-1 Negative (Negative); Babesia duncani Negative (Negative); Babesia microti Negative (Negative); Ehrlichia chaffeensis Negative (Negative); Ehrlichia ewingii/canis Negative (Negative); Ehrlichia muris eauclairensis Negative (Negative)
== END 2023-05-06 13:03 | disposition home or self-care (01) ==
LOC: LBN 13:02
PROVIDERS: PCP Family Medicine; Visit Provider Physician Assistant Surgical
DX: I27.20 Pulmonary hypertension, unspecified (principal); E55.9 Vitamin D deficiency, unspecified; R06.00 Dyspnea, unspecified; T14.8XXA Other injury of unspecified body region, initial encounter; W57.XXXA Bitten or stung by nonvenomous insect and other nonvenomous arthropods, initial encounter
CPT/HCPCS: 82306; 86200; 87798; 86038; 86431; 86618

== ENCOUNTER 2023-05-10 14:32 | Emergency (ER) | payer MEDICARE, OTHER, SELFPAY ==
[2023-05-10] VITALS (29 sets, daily range): BP systolic 118–148; BP diastolic 71–128; PULSE 54–97; RESP 10–20; TEMP 36.1–36.7; O2SAT 95–99
--- NOTE | 2023-05-10 14:30 | RT.EKG_ITS ---
APPROVED REPORT Exam: Resting ECG Reason for Exam: chest pain Patient Location: E HR:75 bpm ECG Measurements Heart Rate [address] 155 P 15 QRSd 79 QRS 8 QT 389 T 89 QTc 435 Conclusion Sinus rhythm...normal P axis, V-rate 60- 99 Low voltage, precordial leads...precordial leads <1.0mV
--- NOTE | 2023-05-10 16:00 | DI.CT_ITS ---
Exam(s) CT CHEST PE ABD PELVIS W EXAM: CT CHEST PE ABD PELVIS W CLINICAL HISTORY: chest pain, dyspnea and upper abdominal pain. TECHNIQUE: Imaging Protocol: Axial CT angiography was performed with multi-slice acquisition and mu lti-planar and/or 3D reconstructions. CONTRAST MATERIAL: Intravenous: Omnipaque 350contrast volume:100 mL COMPARISON: CT CT ABDOMEN PELVIS W from 11/14/2022 FINDINGS: CHEST: Tracheobronchial tree: Patent where visualized. Pulmonary parenchyma: No consolidation or dominant measurable mass. There is atelectasis or scarring in the lung bases. There is a calcified granuloma in the left lower lobe. Pulmonary Arteries: No evidence of filling defect to suggest pulmonary emboli. Mediastinum and Lidia: No dominant adenopathy or fluid collection. The esophagus is unremarkable. Ther e is a small hiatal hernia. Visualized thyroid gland: Unremarkable. Pleura: No effusion or pneumothorax. Heart: The heart is not dilated. No coronary artery calcifications are seen. No pericardial effusion. Aorta: Thoracic aorta non-dilated. No evidence of dissection. 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 Bones: Within normal limits for the patient's age. Soft tissues: Unremarkable. ABDOMEN: Liver: Normal density. No measurable mass. There are calcified granuloma in the liver. Hepatomegaly. Portal, Superior Mesenteric, and Splenic Veins: Unremarkable. Gallbladder and Biliary Tract: Status post cholecystectomy. No biliary ductal dilatation. Pancreas: Normal density, no abnormal calcifications or inflammatory process. Spleen: Ossified granuloma in the spleen. Adrenals: No masses seen. Kidneys: Normal size, contour and axis. No radiodense stones or obstructive uropathy. No masses seen. Abdominal Aorta: Abdominal portion non-dilated. Atherosclerosis. Bowel: No obstruction or bowel wall thickening. There are few scattered diverticula in the colon but no evidence of acute diverticulitis. There is no evidence of acute appendicitis. Peritoneal Cavity: No ascites, collection or mesenteric inflammatory response. No free air. Lymph Nodes: Within normal limits. Bones: Within normal limits for the patient's age. Soft Tissues: There is a left anterior abdominal wall hernia containing an unremarkable loop of small bowel. No evidence of obstruction or incarceration. In the site of the previous right hernia there is now a well-circumscribed round fluid collection measuring 3.6 x 3.9 cm. PELVIS: Bladder: Symmetric distention, no gross wall thickening. Reproductive Organs: Unremarkable as visualized. Lymph Nodes: Within normal limits. Bones: Within normal limits. IMPRESSION: 1. No evidence pulmonary embolism, thoracic aortic dissection or aneurysm. 2. No acute pulmonary process. 3. Rounded fluid collection measuring 3.6 x 3.9 cm in the right anterior subcutaneous fat in the jarred on of the previously seen hernia. Differential considerations include seroma, lymphocele or less lik jose a abscess. RADIATION DOSE DELIVERED: 1,696.63mGy.cm Total DLP DATA REPOSITORY: All CT scans at this facility are submitted to the National Radiology Data Registry (NRDR) Dose Index Registry (DIR) with the [employer] [place] [employer] (ACR). RADIATION OPTIMIZATION: All CT scans at this facility use at least one of these dose optimization te chniques: automated exposure control; mA and/or kV adjustment per patient size (includes targeted exa ms where dose is matched to clinical indication); or iterative reconstruction.
--- NOTE | 2023-05-10 16:02 | W.ED.GENAD ---
Discharge Plan Disposition Patient Disposition: Home Condition: Stable Discharge Details Clinical Impression: Chest pain Primary Care Provider: Lidia Whelan V ED Provider: Timo Gallego Home Meds and New Rx's Prescriptions: Continued hydrocodone-acetaminophen [Vicodin] 5-300 mg tablet 1 tab PO Q8H PRN Patient Comments: PER PATIENT Rx Instructions: duplicate 11/14/22 nystatin 100,000 unit/gram powder 1 applic topical BID Qty: 60 0RF estradiol [Vagifem] 10 mcg tablet 10 mcg vaginal .Twice weekly 360 Days Qty: 30 3RF levalbuterol tartrate [Xopenex HFA] 45 mcg/actuation HFA aerosol inhaler 2 inh inhalation Q6H PRN (Reason: shortness of breath or wheezing) Qty: 15 6RF ascorbic acid (vitamin C) 500 mg capsule 1,000 mg PO DAILY diltiazem HCl 60 mg capsule,extended release 12 hr 60 mg PO DAILY up4 Probiotics Adult 15 billion cell capsule 1 cap PO DAILY cranberry 500 mg capsule 500 mg PO BID PRN Rx Instructions: administer with meals hydrocodone-acetaminophen 5-325 mg tablet 1 tab PO Q8H PRN CBD oil 16 mg 16 mg oil 16 mg PO HS nystatin-triamcinolone 100,000-0.1 unit/g-% cream 1 applic topical BID Qty: 60 5RF Rx Instructions: apply to areas on abdomen, under breasts, thighs twice daily. fluticasone propion-salmeterol [Advair HFA] 230-21 mcg/actuation HFA aerosol inhaler 2 puff inhalation DAILY Qty: 12 0RF epinephrine 0.3 MG/0.3 ML auto-injector 0.3 mg IM PRN melatonin 5 MG tablet 5 mg PO HS cholecalciferol (vitamin D3) 50 mcg (2,000 unit) capsule 50 mcg PO DAILY magnesium oxide 250 mg magnesium tablet 500 mg PO DAILY senna 8.6 mg capsule 8.6 mg PO DAILY PRN cetirizine 10 mg tablet 10 mg PO DAILY PRN famotidine 20 mg tablet 20 mg PO DAILY nystatin-triamcinolone 100,000-0.1 unit/gram-% ointment See Rx Instructions .ROUTE .COMPLEX Qty: 60 2RF Dose Instruction: APPLY TO AFFECTED AREA(S) TWO TIMES A DAY Rx Instructions: APPLY TO AFFECTED AREA(S) TWO TIMES A DAY fluconazole [Diflucan] 150 mg tablet 150 mg PO .Twice weekly Qty: 4 0RF polyethylene glycol 3350 [Miralax] 17 gram/dose powder 17 g PO DAILY PRN hydrochlorothiazide 25 mg tablet 25 mg PO QHS potassium chloride [K-Tab] 20 mEq tablet extended release 20 meq PO DAILY Qty: 7 0RF Discharge Instructions Instructions: Chest Pain (ED) Additional Instructions: Your blood work and cat scan do not show concerning findings Follow up with your primary care provider within 1 week and have the echo done that is scheduled if you feel more ill, have severe worsening pain or trouble breathing return to the emergency department Medical Decision Making 73 yo male with hx asthma, gerd, erma, who comes in with cc of chest pain with exertion for a week along with dyspnea. She denies fevers, chills, radiation of pain, diaphoresis, n/v. She is caox4 speaking clearly in no distress. She has clear lung sounds, no murmurs no leg swelling. She also notes feeling a sensation in her abdomen as if it is full, she does have tenderness in the right upper and left upper abdomen. Unclear etiology for her symptoms, ekg nondiagnostic, will proceed with troponin, cbc, cmp, and cta for pe and ct abd/pelvis. labs and imaging unremarkable, does have likely seroma in the subcutaneous tissue at the right hip region of previous operated on hernia, has no pain in this area, no erythema, no warmth so dout abscess. Given she has a week of symptoms do not feel delta troponin indicated. She has outpatient echo scheduled for Thursday, advised to keep this and return precautions given and advised to f/u with pcp Differential Diagnosis Differential Diagnosis: nstemi, pe, asthma Medical Records Medical records reviewed: Yes I reviewed the patient's medical records. Imaging Data Radiologic Study: Attestation: I personally reviewed and interpreted this imaging study as follows: Imaging: X-Ray Radiologist's impression: IMPRESSION: 1. Negative for acute pulmonary emboli. 2. Rounded fluid collection within the right anterior subcutaneous fat at the level of the right hip in the region of previously seen hernia. Measures 3.6 x 3.9 cm, may be seroma, lymphocele, or less likely, abscess Lab Data Lab results reviewed: Yes I reviewed the patient's lab results. ECG Data Attestation: I personally reviewed and interpreted this ECG (s) as follows: Prior ECG tracings: available for review Interpretation: sinus rate of 75, pr 155, no stemi HPI General Mode of arrival: ambulatory. Date/Time Provider Initiated Documentation: 05/10/23 15:52. Limitations to Documentation: no limitations. Information obtained by: patient. History of Present Illness 73 year old F presents to the emergency department with the chief complaint of chest pain, described as moderate, Patient started experiencing this week(s) (1) and it has been constant. Rest improves symptom(s), Movement worsens symptoms . Patient notes no other symptoms.. Patient did receive the following treatments prior to arrival, none Related Data Home Medications Medication Instructions Recorded Confirmed epinephrine 0.3 mg/0.3 mL 0.3 mg IM PRN 12/06/13 05/10/23 injection, auto-injector melatonin 5 mg tablet 5 mg PO HS 04/05/18 05/10/23 hydrochlorothiazide 25 mg tablet 25 mg PO QHS 03/19/21 05/10/23 hydrocodone 5 mg-acetaminophen 300 1 tab PO Q8H PRN 03/19/21 05/10/23 mg tablet (Vicodin) cholecalciferol (vitamin D3) 50 50 mcg PO DAILY 07/29/22 05/10/23 mcg (2,000 unit) capsule potassium chloride 20 mEq 20 meq PO DAILY #7 tabs 10/23/22 05/10/23 tablet,extended release (K-Tab) Lactobacillus 1 cap PO DAILY 11/04/22 05/10/23 acidophil,plantar-Bifido no.7 15 billion cell capsule (up4 Probiotics Adult) ascorbic acid (vitamin C) 500 mg 1,000 mg PO DAILY 11/04/22 05/10/23 capsule cranberry 500 mg capsule 500 mg PO BID PRN 11/04/22 03/27/23 diltiazem HCl 60 mg 60 mg PO DAILY 11/04/22 05/10/23 capsule,extended release 12 hr CBD oil 16 mg 16 mg PO HS 11/06/22 05/10/23 hydrocodone 5 mg-acetaminophen 325 1 tab PO Q8H PRN 11/06/22 05/10/23 mg tablet cetirizine 10 mg tablet 10 mg PO DAILY PRN 12/17/22 05/06/23 famotidine 20 mg tablet 20 mg PO DAILY 12/17/22 05/10/23 magnesium oxide 500 mg PO DAILY 12/17/22 05/10/23 sennosides 8.6 mg capsule (senna) 8.6 mg PO DAILY PRN 12/17/22 05/10/23 fluticasone propionate 230 2 puff inhalation DAILY #12 grams 12/30/22 05/10/23 mcg-salmeterol 21 mcg/actuation HFA inhaler (Advair HFA) nystatin-triamcinolone 100,000 1 applic topical BID #60 grams 12/30/22 03/27/23 unit/g-0.1 % topical cream estradiol 10 mcg vaginal tablet 10 mcg vaginal .Twice weekly 12 02/09/23 05/10/23 (Vagifem) months #30 tabs nystatin-triamcinolone 100,000 See Rx Instructions .Route 02/11/23 03/27/23 unit/gram-0.1 % topical ointment .COMPLEX #60 grams fluconazole 150 mg tablet 150 mg PO .Twice weekly #4 tabs 02/20/23 05/10/23 (Diflucan) nystatin 100,000 unit/gram topical 1 applic topical BID #60 grams 03/27/23 03/27/23 powder polyethylene glycol 3350 17 17 g PO DAILY PRN 04/28/23 gram/dose oral powder (Miralax) levalbuterol tartrate 45 2 inh inhalation Q6H PRN shortness 05/06/23 05/10/23 mcg/actuation aerosol inhaler of breath or wheezing #15 grams (Xopenex HFA) Previous Rx's Medication Instructions Recorded potassium chloride 20 mEq 20 meq PO DAILY #7 tabs 10/23/22 tablet,extended release (K-Tab) fluticasone propionate 230 2 puff inhalation DAILY #12 grams 12/30/22 mcg-salmeterol 21 mcg/actuation HFA inhaler (Advair HFA) nystatin-triamcinolone 100,000 1 applic topical BID #60 grams 12/30/22 unit/g-0.1 % topical cream estradiol 10 mcg vaginal tablet 10 mcg vaginal .Twice weekly 12 02/09/23 (Vagifem) months #30 tabs nystatin-triamcinolone 100,000 See Rx Instructions .Route 02/11/23 unit/gram-0.1 % topical ointment .COMPLEX #60 grams fluconazole 150 mg tablet 150 mg PO .Twice weekly #4 tabs 02/20/23 (Diflucan) nystatin 100,000 unit/gram topical 1 applic topical BID #60 grams 03/27/23 powder levalbuterol tartrate 45 2 inh inhalation Q6H PRN shortness 05/06/23 mcg/actuation aerosol inhaler of breath or wheezing #15 grams (Xopenex HFA) Allergies Allergy/AdvReac Type Severity Reaction Status Date / Time sulfamethoxazole Allergy Severe rash Verified 05/06/23 10:17 [From Bactrim] trimethoprim [From Bactrim] Allergy Severe Verified 05/06/23 10:17 venom-honey bee Allergy Severe Anaphylaxis Verified 05/06/23 10:17 adhesive Allergy Intermediate Skin Rash Verified 05/06/23 10:17 petrolatum,white Allergy Intermediate Rash Verified 05/06/23 10:17 [From Petroleum Jelly] prednisone Allergy Intermediate Major Verified 05/06/23 10:17 anxiety and agitation sertraline HCl [From Zoloft] Allergy Intermediate major Verified 05/06/23 10:17 anxiety and agitation Sulfa (Sulfonamide Allergy Intermediate Hives Verified 05/06/23 10:17 Antibiotics) latex Allergy Mild Skin Rash Verified 05/06/23 10:17 amoxicillin Allergy Skin Rash Unverified 05/06/23 10:17 ciprofloxacin [From Cipro] Allergy Skin Rash Unverified 05/06/23 10:17 house dust Allergy Other (See Unverified 05/06/23 10:17 Comment) NSAIDS (Non-Steroidal Allergy Verified 05/06/23 10:17 Anti-Inflamma ibuprofen AdvReac Intermediate Nausea Verified 05/06/23 10:17 scented chemicals AdvReac Intermediate SOB Uncoded 05/06/23 10:17 pollen AdvReac Other (See Uncoded 05/06/23 10:17 Comment) General Stated Complaint: Chest Pain MARC: 3 Review of Systems All systems reviewed & are unremarkable except as noted in HPI and below Constitutional Constitutional: Denies chills, Denies fever(s) and Denies weakness Cardiovascular Cardiovascular: Reports chest pain and Reports dyspnea Respiratory Respiratory: Denies cough and Reports dyspnea Gastrointestinal Gastrointestinal: Denies abdominal pain, Denies nausea and Denies vomiting Genitourinary Genitourinary: Denies dysuria Musculoskeletal Musculoskeletal: Denies joint swelling Integumentary/Breasts Skin/Breast: Denies rash Neurologic Neurologic: Denies weakness Psychiatric Psychiatric: Denies depression Endocrine Endocrine: Denies cold intolerance and Denies heat intolerance Allergic/Immunologic Allergic/Immunologic: Denies urticaria PFSH All Active Problems (Updated 05/10/23 @ 18:11 by Timo Gallego MD) Chest pain (Acute) Tick bite (Acute) Dyspnea on exertion (Acute) Pulmonary hypertension (Acute) Polyarthritis (Acute) Hypertensive disorder (Chronic) Allergic rhinitis (Acute) Paroxysmal supraventricular tachycardia (Acute) Heart murmur (Acute) Iron deficiency anemia due to dietary causes (Acute) Fatigue (Acute) Ataxia (Acute) Sense of smell impaired (Acute) Chest tightness (Acute) Visual changes (Acute) Palpitations (Acute) Lacunar infarction (Acute) UTI (urinary tract infection) (Acute) Hematuria (Acute) Hypokalemia (Acute) Vaginal irritation (Acute) Atelectasis (Acute) Basilar lung Urticaria (Acute) Erythematous rash (Acute) Weight gain (Acute) Dysphagia (Acute) Thyromegaly (Acute) Lymphadenopathy (Acute) Atrophic vulvovaginitis (Acute) Dysuria (Acute) Yeast Dermatitis (Acute) Recurrent hernia (Acute) Well woman exam with routine gynecological exam (Acute) Atrophic vaginitis (Acute) Vulvar irritation (Acute) Other chest pain (Acute) Shoulder injury related to vaccine administration (SIRVA) (Acute) Bursitis of right shoulder (Acute) Back pain, chronic (Acute) Obesity (Chronic) Rotator cuff syndrome of right shoulder (Acute) Anxiety and depression (Chronic) Lumbar radiculopathy (Acute) Dyspnea (Acute) Peripheral neuropathy (Acute) Restless leg syndrome (Acute) Vitamin B12 deficiency (Acute) Shingles (Acute) Scapulalgia (Acute) Vertigo (Acute) Arm pain, right (Acute) Subacromial bursitis of right shoulder joint (Acute) Vaccines and biological substances adverse effect in therapeutic use (Acute) Headache (Acute) Pain of both eyes (Acute) Dry eye syndrome, bilateral (Acute) Dry mouth (Acute) Arthralgia (Acute) Positive antinuclear antibody (Acute) Shoulder pain, right (Acute) Lacunar infarction (Acute) Arthritis of carpometacarpal (CMC) joint of right thumb (Acute) Injection: 01/14/21; 08/21/20 PVC (premature ventricular contraction) (Acute) Right wrist pain (Acute) Subacute right lumbar radiculopathy (Acute) Carpal tunnel syndrome on both sides (Acute) Pre-op evaluation (Acute) Recurrent ventral hernia (Acute) Chronic low back pain with bilateral sciatica (Acute) Weakness (Acute) Leg paresthesia (Acute) Hand anomaly (Acute) SVT (supraventricular tachycardia) (Acute 12/20/15) Hyperlipidemia (Acute) Family history of breast cancer (Acute 12/08/14) Essential hypertension (Acute 12/20/15) Degenerative disk disease (Acute 02/09/15) RLQ pain and RLE radiculopathy Chronic midline low back pain with left-sided sciatica (Acute 12/16/17) Asthma (Acute) Acquired hypothyroidism (Acute 12/20/15) Medical History (Updated 05/10/23 @ 18:11 by Timo Gallego MD) Calf pain Fibromyalgia GERD (gastroesophageal reflux disease) IBS (irritable bowel syndrome) ERMA (obstructive sleep apnea) ? unsure on dx Personal history of COVID-19 Vitamin D deficiency Surgical History (Updated 04/28/23 @ 11:45 by Karla Ibarra) Cholecystectomy (~2007) History of abdominal hernia multiple surgeries; 2 in 2018 [place] Fundoplication (~2007) x2 Repair of inguinal hernia (09/14/15) Right - done at 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 Exam Const General: no acute distress Orientation: alert HENMT Head: normal to inspection Ears: external ears normal General nose exam: external nose normal Mouth: moist mucous membranes Eyes General: appearance normal, both eyes and all related structures Neck Neck: normal visual inspection Resp Effort & Inspection: normal respiratory effort and able to speak in complete sentences Auscultation: clear to auscultation bilaterally Cardio Jugular venous pressure: no JVD Rate: regular rate Heart Sounds: no murmurs Skin General skin exam: no rashes or lesions noted Neuro General: patient alert and patient oriented x3 Extrem General: normal to inspection Psych Mental Status: mental status grossly normal Course Vital Signs Vital signs: Vital Signs Temperature 36.7 C 05/10/23 14:39 Pulse 73 05/10/23 14:39 Respiratory Rate 18 05/10/23 14:39 Blood Pressure 148/76 H 05/10/23 14:39 Pulse Oximetry 96 05/10/23 14:39 Temperature 36.7 C 05/10/23 14:39 Temperature Source Temporal Artery Scan 05/10/23 14:39 Pulse 73 05/10/23 14:39 Respiratory Rate 18 05/10/23 14:39 Respiratory Effort Normal, Non-Labored 05/10/23 14:45 Blood Pressure 148/76 H 05/10/23 14:39 Blood Pressure Position Supine 05/10/23 14:39 Pulse Oximetry 96 05/10/23 14:39 Oxygen Delivery Method Room Air 05/10/23 14:39 Oxygen Flow Rate 0 05/10/23 14:39
[2023-05-10 16:05] LABS: Abs Immature Grans 0.03 10^3/uL (0.0-0.06); Absolute Basophil Count 0.08 10^3/uL (0.0-0.2); Absolute Eosinophil Count 0.08 10^3/uL (0.0-0.7); Absolute Lymphocyte Count 2.04 10^3/uL (1.2-3.4); Absolute Monocyte Count 0.57 10^3/uL (0.1-0.8); Absolute Neutrophil Count 5.39 10^3/uL (1.2-6.7); HCT 42.3 % (36.0-46.0); Immature Grans % 0.4; Lymphocytes % 24.9; MCH 28.6 pg (27.0-33.0); MCHC 33.1 % (32.0-36.0); MCV 87 fL (80-95); MPV 9.6 fL (8.0-11.0); Neutrophils % 65.7; Platelet Count 306 10^3/uL (130-400); RBC 4.89 10^6/uL (3.93-5.22); RDW 12.3 % (11.7-14.6); RDW-SD 39.1 fL; WBC 8.19 10^3/uL (4.4-10.8)
[2023-05-10 16:21] LABS: PTT Activated 25.5 sec (21.5-31.9); Prothrombin Time 9.9 sec (9.3-11.0)
[2023-05-10 16:33] LABS: ALT 22 U/L (14-59); AST 16 U/L (15-37); Albumin 3.8 g/dL (3.4-5.0); Alkaline Phosphatase 70 U/L (46-116); BUN 15 mg/dL (7-18); Bilirubin, Total 0.6 mg/dL (0.2-1.0); CREATININE 0.8 mg/dL (0.55-1.02); Chloride 103 mmol/L (98-107); Estimated GFR 78.72 (mL/min/1.73m2); Glucose 101 mg/dL (74-106); Magnesium 1.9 mg/dL (1.8-2.4); NT-proBNP 86 pg/mL (<300); Potassium 3.3 mmol/L (3.5-5.1); Sodium 142 mmol/L (136-145); TSH (W/Ref FT4) 0.48 uIU/mL (0.36-3.74); Total Protein 7.4 g/dL (6.4-8.2); Troponin I < 50 ng/L (<or=60)
[2023-05-10 16:35] LABS: D-Dimer 454 ng/mlFEU (<500)
[2023-05-10] MEDS: Normal Saline - Diluent 50 ML VIAL IJ (16:39)
[2023-05-10] MEDS: Omnipaque 350 MG/ML 100 ML BTL IJ (16:40)
--- NOTE | 2023-05-10 17:48 | DI.VRAD_ITS ---
PROCEDURE INFORMATION: Exam: CTA Chest With Contrast CTA Abdomen With Contrast Exam date and time: 05/10/2023 4:40 PM Age: 73 years old Clinical indication: Other: Chest pain dyspnea; Other: Upper abd pain TECHNIQUE: Imaging protocol: Computed tomographic angiography of the chest with contrast. Exam focused on the arteries. Computed tomographic angiography of the abdomen with contrast. Exam focused on the arteries. 3D rendering (Not supervised by radiologist): MIP and/or 3D reconstructed images were created by the technologist. Contrast material: 350; Contrast volume: 100 ml; Contrast route: INTRAVENOUS (IV); COMPARISON: CT CHEST PE CTA 01/11/2020 11:43 AM FINDINGS: VASCULATURE: Pulmonary arteries: Normal. No pulmonary emboli. Great vessels off aortic arch: Aberrant origin of the right subclavian artery, anatomic variant. Aorta: No aortic aneurysm. No aortic dissection. Celiac trunk and mesenteric arteries: No occlusion or significant stenosis. Renal arteries: No occlusion or significant stenosis. CHEST: Lungs: Unremarkable. No consolidation. No masses. Pleural spaces: Unremarkable. No pneumothorax. No pleural effusion. Heart: Unremarkable. No cardiomegaly. No pericardial effusion. Diaphragm: Small hiatal hernia. ABDOMEN AND PELVIS: Liver: No mass. Gallbladder and bile ducts: Previous cholecystectomy. Pancreas: Unremarkable. No mass. No ductal dilation. Spleen: Unremarkable. No splenomegaly. Adrenal glands: Unremarkable. No mass. Kidneys and ureters: Unremarkable. No solid mass. No hydronephrosis. Stomach and bowel: Unremarkable. No obstruction. No mucosal thickening. Intraperitoneal space: Unremarkable. No free air. No significant fluid collection. Lymph nodes: See Soft tissues finding. Bones/joints: Unremarkable. No acute fracture. Soft tissues: Rounded fluid collection within the right anterior subcutaneous fat at the level of the right hip in the region of previously seen hernia. Measures 3.6 x 3.9 cm, may be seroma, lymphocele, or less likely, abscess. Other findings: Previous granulomatous exposure. IMPRESSION: 1. Negative for acute pulmonary emboli. 2. Rounded fluid collection within the right anterior subcutaneous fat at the level of the right hip in the region of previously seen hernia. Measures 3.6 x 3.9 cm, may be seroma, lymphocele, or less likely, abscess. Dictated and Authenticated by: Adrianna Hargrove MD. Ordering:BRANDO Greenwood MD
== END 2023-05-10 18:23 | disposition home or self-care (01) ==
PROVIDERS: Emergency Provider Emergency Medicine; PCP Family Medicine
DX: K43.9 Ventral hernia without obstruction or gangrene (principal); R06.09 Other forms of dyspnea; R07.9 Chest pain, unspecified; I10 Essential (primary) hypertension; Z90.49 Acquired absence of other specified parts of digestive tract
CPT/HCPCS: 36415; 71275; 74177; 80053; 93005; 99285; 83735; 83880; 84443; 84484; 85025; 85379; 85610; 85730; 93010; 99283; J3490

== ENCOUNTER 2023-05-19 00:37 | Outpatient (CLI) | payer MEDICARE, OTHER, SELFPAY ==
--- NOTE | 2023-05-19 11:19 | DI.US_ITS ---
APPROVED REPORT EXAM: Comprehensive 2D, Doppler, and color-flow Echocardiogram Patient Location: Out-Patient Pot Washer: Charlotte Aguila RDCS (AE) Indications: Pulmonary HTN, SVT, Dyspnea on exertion Echo Enhancing Agent Indication: Rule out Shunt Agent(s) / Amount(s) Used: Agitated Saline 30.0 cc Comments: Contrast study was performed with 3 IV injections of 10ccs of agitated normal saline, at re st, with cough and post valsalva maneuver. Negative contrast study for shunt flow. Other Information Study Quality: Adequate Conclusion Normal left ventricular wall thickness and chamber size. Ejection fraction is 60%. Wall motion is n ormal Normal right ventricular size and function Both atria are normal in size There is no structural or hemodynamically significant valvular disease Estimated right ventricular systolic pressure is 19 mmHg Wall motion Left Ventricle The left ventricle is normal size. The left ventricular systolic function is normal. The left ventric ular ejection fraction is within the normal range. There is normal left ventricular wall thickness. T here is normal LV segmental wall motion. There is no ventricular septal defect visualized. LVEF is 60 %. Right Ventricle The right ventricle is normal size. The right ventricular systolic function is normal. The RVSP is 19 .1mmHg. Atria The left atrium size is normal. The right atrium size is normal. The interatrial septum is intact wit h no evidence for an atrial septal defect. Saline bubble contrast intravenous injection does not demo nstrate PFO. Aortic Valve The aortic valve is normal in structure. Aortic valve is trileaflet. There is no aortic valvular sten osis. No aortic regurgitation is present. Mitral Valve The mitral valve is normal in structure. No evidence of mitral valve stenosis. Trace mitral regurgita tion. Tricuspid Valve The tricuspid valve is normal in structure. There is no tricuspid valve stenosis. Trace tricuspid reg urgitation. Pulmonic Valve The pulmonary valve is normal in structure. There is no pulmonic valvular stenosis. There is no pulmo sergio valvular regurgitation. Great Vessels The aortic root is normal in size. The ascending aorta is mildly dilated. Ascending aorta is not well visualized. IVC is normal in size and collapses >50% with inspiration. Pericardium There is no pericardial effusion. 2D Dimensions IVSD d PLAX 0.90 cm F: 0.6-1.0 LV Vol A2C d MOD 107.0 mL LVPW d PLAX 0.90 cm F: 0.6 - 1.0 LV Vol A4C d MOD 109.1 mL LVID d PLAX 4.92 cm F: 3.8 - 5.2 LA vol/ BSA A2C s A-L 23.8 mL/m2 LVDs 3.15 cm F: 2.2 - 3.5 LA vol/ BSA A4C s A-L 28.2 mL/m2 Ao Root d 3.17 cm F: 2.7 - 3.3 LA Vol/ BSA Biplane s A-L 29.2 mL/m2 RA Area A4C 17.80 cm2 LA Area A4C s MOD 20.73 cm2 RA Vol/ BSA A4C s A-L 24.5 mL/m2 LA Area A2C s MOD 16.88 cm2 Ao Asc Diam d 3.41 cm F: 2.3 - 3.1 LV EF A4C MOD 60.3 % LV EF Teichholz 65.4 % LV EF A2C MOD 58.0 % LVEF (Garza's) 58.64 % F: 54 - 74 LV EF Biplane MOD 58.6 % LV Volume 81.02 mL F: 46 - 106 SV 64.81 mL LV Volume Index 37.68 mL/m2 F: 29 - 61 SV Index 30.21 mL/m2 LV Vol Biplane MOD 110.5 mL FS 35.95 % M-Mode TAPSE 3.03 cm (M/F) >1.7 LV Diastology MV E' medial 0.097 (>0.07 m/s) E/A Ratio 0.8 LV E/e MED 8.80 (<14) MV E Vmax 0.85 (0.4-1.3 m/s) MV E' lateral 0.078 (>0.1 m/s) MV A Vmax 1.05 (0.4-1.3 m/s) LV E/e LAT 10.90 (<14) MV E/A Ratio 0.80 MV E/E' medial 8.84 MV E/E' lateral 10.92 Aortic Valve LVOT Area 3.92 cm2 AoV Area Vmax 3.32 cm2 LVOT Vmax 1.32 m/s AoV Area/ BSA (Vmax) 1.55 cm2/m2 LVOT Mean Kiko. 0.83 m/s SAMARA Mean Kiko. 3.04 cm2 LVOT Peak Grad 6.9 mmHg SAMARA Mean Kiko. Index 1.42 cm2/m2 LVOT Mean Grad 3.3 mmHg LVOT VTI 0.301 m LVOT Diam s 2.20 cm AoV Vmax 1.55 m/s Velocity Ratio 0.85 AoV Mean Kiko. 1.07 m/s AoV Peak Grad 9.7 mmHg LVOT SV 118.12 mL AoV Mean Grad 5.2 mmHg AoV VTI 0.348 m AoV Area VTI 3.40 cm2 AoV Area/ BSA (VTI) 1.58 cm/m2 Mitral Valve MV DT 264 (160-240 msec) MV PHT 77 msec MV Area PHT 2.88 cm2 MV VTI 0.392 m MV Area VTI 3.02 (4.0-6.0 cm2) Pulmonary Valve PV Vmax 0.95 (0.5-1.5 m/s) RVOT Peak Gr. 1.69 mmHg PV Peak Grad 3.6 mmHg RVOT Mean Gr. 0.85 mmHg PV Mean Grad 1.8 mmHg RVOT VTI 0.138 m PV VTI 0.206 m RVOT Vmax 0.65 m/s Tricuspid Valve TR Peak Grad 16.0 mmHg TR Vmax 2.00 m/s RA Pressure 3.00 mmHg RVSP (TR) 19.1 mmHg
== END 2023-05-19 00:57 ==
LOC: DI 00:42
PROVIDERS: PCP Family Medicine; Visit Provider Physician Assistant Surgical
DX: R06.09 Other forms of dyspnea; I10 Essential (primary) hypertension
CPT/HCPCS: 93306

== ENCOUNTER 2023-05-19 04:04 | Outpatient (CLI) | payer MEDICARE, OTHER, SELFPAY ==
[2023-05-19 14:06] LABS: Anion Gap 7.1 mmol/L (3-11); BUN 14 mg/dL (7-18); CO2 30.9 mmol/L (21.0-32.0); CREATININE 0.7 mg/dL (0.55-1.02); Calcium 9.6 mg/dL (8.5-10.1); Chloride 104 mmol/L (98-107); Estimated GFR 92.41 (mL/min/1.73m2); Glucose 99 mg/dL (74-106); Magnesium 1.9 mg/dL (1.8-2.4); Potassium 3.7 mmol/L (3.5-5.1); Sodium 142 mmol/L (136-145)
== END 2023-05-19 04:05 | disposition home or self-care (01) ==
PROVIDERS: PCP Family Medicine; Visit Provider Family Medicine
DX: E87.6 Hypokalemia (principal)
CPT/HCPCS: 36415; 80048; 93306; 83735

== ENCOUNTER 2023-05-21 04:38 | Outpatient (CLI) | payer MEDICARE, OTHER, SELFPAY ==
[2023-05-21] MEDS: Methacholine 100 MG VIAL IH (12:03)
[2023-05-21] MEDS: Inhaler, Assist Device 1 EACH MC (12:05)
--- NOTE | 2023-05-21 13:04 | W.6MWT ---
Date of service: 05/21/23 Time of Service: 10:01 6 Minute Walk Test Note: 6 Minute Walk Test Distance walked: 1100 feet Desaturations: No significant desaturations Heart rate changes: 82bpm to 109bpm at 4 minutes. Normal walk distance Recommendation: Normal 6MWT with no significant desaturations. Carolann Zelaya MD Pulmonary & Critical Care Medicine
[2023-05-21] MEDS: Levalbuterol HFA 15 GM INH IH (15:27)
--- NOTE | 2023-05-22 08:05 | W.PFT ---
Date of service: 05/21/23 Time of Service: 10:13 Pulmonary Function Test Result Indications: Dyspnea Interpretation Spirometry: There is no airflow limitation. There was a 23% decrease in FEV1% with administration of 1.0mg/mL methacholine. Lung Volumes: Normal lung volumes Diffusion Capacity: Normal diffusion Airway Pressure: Normal airways resistance Impression Normal baseline PFT's with a positive methacholine test. Note: When compared to 2019, there is no significant change in baseline lung function. Clinical Correlation therefore is recommended.
== END 2023-05-21 04:39 | disposition home or self-care (01) ==
PROVIDERS: PCP Family Medicine; Visit Provider Physician Assistant Surgical
DX: R06.00 Dyspnea, unspecified (principal)
CPT/HCPCS: 94060; 94070; 94618; 94726; 94729; 94010; J7674

== ENCOUNTER 2023-05-26 09:24 | Outpatient (REF) | payer MEDICARE, OTHER, SELFPAY ==
[2023-05-26 22:46] LABS: Thyroperoxidase Antibody <28 U/mL (<=60)
== END 2023-05-26 09:25 | disposition home or self-care (01) ==
LOC: NCHCN 09:24
PROVIDERS: PCP Family Medicine; Visit Provider Family Medicine
DX: E06.3 Autoimmune thyroiditis (principal)
CPT/HCPCS: 86376

== ENCOUNTER → 2023-05-28 00:25 | Outpatient (CLI) | payer MEDICARE, OTHER, SELFPAY ==
--- NOTE | 2023-05-28 | DI.US_ITS ---
Exam(s) US THYROID EXAM: US THYROID CLINICAL HISTORY: DYSPHAGIA, R13.10,THYROMEGALY,E01.0,LYMPHADENOPATHY,R59.1. TECHNIQUE: Ultrasound thyroid performed using standard protocol. COMPARISON: CT CT CHEST PE ABD PELVIS W from 05/10/2023 FINDINGS: ISTHMUS: 3 mm RIGHT LOBE: Size: 4.7 x 1.9 x 1.8 cm Echogenicity: Normal. Vascularity: Normal. Nodules: No solid nodules are identified. There is a TI rads level 1 simple cyst measuring 3 mm. LEFT LOBE: Size: 4.4 x 2 x 2.3 cm Echogenicity: Normal. Vascularity: Normal. Nodules: No solid nodules are identified. There is a TI rads level 1 simple cyst measuring 4 mm. OTHER FINDINGS: None. IMPRESSION: No suspicious thyroid nodules warranting follow-up or biopsy. DATA REPOSITORY:
== END ==
PROVIDERS: PCP Family Medicine; Visit Provider Family Medicine
DX: R13.10 Dysphagia, unspecified (principal); E01.0 Iodine-deficiency related diffuse (endemic) goiter; R59.1 Generalized enlarged lymph nodes
CPT/HCPCS: 76536

== ENCOUNTER 2023-06-29 13:22 | Outpatient (REF) | payer MEDICARE, OTHER, SELFPAY ==
[2023-06-29 16:08] LABS: Anion Gap 9.1 mmol/L (3-11); BUN 16 mg/dL (7-18); CO2 28.9 mmol/L (21.0-32.0); CREATININE 0.8 mg/dL (0.55-1.02); Chloride 102 mmol/L (98-107); Estimated GFR 78.72 (mL/min/1.73m2); Glucose 103 mg/dL (74-106); Magnesium 1.6 mg/dL (1.8-2.4); Potassium 3.4 mmol/L (3.5-5.1); Sodium 140 mmol/L (136-145)
== END 2023-06-29 13:23 | disposition home or self-care (01) ==
LOC: NCHCN 13:22
PROVIDERS: PCP Family Medicine; Visit Provider Family Medicine
DX: I10 Essential (primary) hypertension (principal)
CPT/HCPCS: 80048; 83735

== ENCOUNTER 2023-07-15 09:57 | Outpatient (REF) | payer MEDICARE, OTHER, SELFPAY ==
[2023-07-15 16:37] LABS: Anion Gap 7.4 mmol/L (3-11); BUN 14 mg/dL (7-18); CO2 30.6 mmol/L (21.0-32.0); CREATININE 0.8 mg/dL (0.55-1.02); Calcium 9.4 mg/dL (8.5-10.1); Chloride 104 mmol/L (98-107); Estimated GFR 78.72 (mL/min/1.73m2); Glucose 103 mg/dL (74-106); Magnesium 1.9 mg/dL (1.8-2.4); Potassium 3.8 mmol/L (3.5-5.1); Sodium 142 mmol/L (136-145)
[2023-07-15 17:05] LABS: Vitamin D 25 Total 27.5 ng/mL (30-100)
== END 2023-07-15 09:58 | disposition home or self-care (01) ==
LOC: NCHCN 09:57
PROVIDERS: PCP Family Medicine; Visit Provider Family Medicine
DX: I10 Essential (primary) hypertension (principal); E87.6 Hypokalemia; E55.9 Vitamin D deficiency, unspecified
CPT/HCPCS: 80048; 82306; 83735

== ENCOUNTER 2023-07-23 08:54 | Outpatient (REF) | payer MEDICARE, OTHER, SELFPAY ==
[2023-07-23 15:31] LABS: C-Reactive Protein 0.37 mg/dL (0.0-0.3)
[2023-07-23 21:34] LABS: ESR (LRH) 11 mm/hr
== END 2023-07-23 08:55 | disposition home or self-care (01) ==
LOC: NCHCN 08:54
PROVIDERS: PCP Family Medicine; Visit Provider Family Medicine
DX: R51.9 Headache, unspecified (principal)
CPT/HCPCS: 85652; 86140

== ENCOUNTER 2023-07-29 09:36 | Outpatient (REF) | payer MEDICARE, OTHER, SELFPAY ==
[2023-07-29 15:50] LABS: Iron 103 ug/dL (50-170); Total Iron Binding Capacity 344 ug/dL (250-450); Transferrin Sat 30 % (15-50)
[2023-07-29 16:01] LABS: Ferritin 28 ng/mL (8-252)
== END 2023-07-29 09:37 | disposition home or self-care (01) ==
LOC: LBN 09:36
PROVIDERS: PCP Family Medicine; Visit Provider Nurse Practitioner
DX: D50.8 Other iron deficiency anemias (principal); G47.00 Insomnia, unspecified; R53.83 Other fatigue; G25.81 Restless legs syndrome
CPT/HCPCS: 82728; 83540; 83550

== ENCOUNTER 2023-08-21 12:59 | Outpatient (REF) | payer MEDICARE, OTHER, SELFPAY ==
[2023-08-21 16:09] LABS: BUN 14 mg/dL (7-18); CREATININE 0.9 mg/dL (0.55-1.02); Calcium 9.6 mg/dL (8.5-10.1); Calculated LDL 139 mg/dL (<100); Chloride 103 mmol/L (98-107); Cholesterol 228 mg/dL (<200); Estimated GFR 68.35 (mL/min/1.73m2); Ferritin 33 ng/mL (8-252); Glucose 143 mg/dL (74-106); HDL Cholesterol 65 mg/dL (40-60); Potassium 4.3 mmol/L (3.5-5.1); Sodium 141 mmol/L (136-145); TSH (W/Ref FT4) 1.07 uIU/mL (0.36-3.74); Triglyceride 122 mg/dL (<150)
[2023-08-21 16:20] LABS: Vitamin D 25 Total 27.3 ng/mL (30-100)
[2023-08-23 22:37] LABS: Anaplasma phagocytophilum Negative (Negative); B. miyamotoi PCR Negative (Negative); Babesia divergens/MO-1 Negative (Negative); Babesia duncani Negative (Negative); Babesia microti Negative (Negative); Ehrlichia chaffeensis Negative (Negative); Ehrlichia ewingii/canis Negative (Negative); Ehrlichia muris eauclairensis Negative (Negative)
[2023-08-24 09:53] LABS: Lyme Ab w Rflx to Lyme Confirm Negative (Negative)
[2023-08-28 12:20] LABS: Iron 105 ug/dL (37-170); Total Iron Binding Capacity 341 ug/dL (240-450); Transferrin Sat 31 % (15-50)
== END 2023-08-21 13:00 | disposition home or self-care (01) ==
LOC: NCHCN 12:59
PROVIDERS: PCP Family Medicine; Visit Provider Family Medicine
DX: E06.3 Autoimmune thyroiditis (principal); E55.9 Vitamin D deficiency, unspecified; E87.6 Hypokalemia; W57.XXXA Bitten or stung by nonvenomous insect and other nonvenomous arthropods, initial encounter
CPT/HCPCS: 80048; 80061; 82306; 87798; 82728; 83540; 83550; 83735; 84443; 86618

== ENCOUNTER 2023-09-14 10:08 | Outpatient (REF) | payer MEDICARE, OTHER, SELFPAY ==
[2023-09-14 17:32] LABS: ESR 10 mm/hr (0-30)
[2023-09-14 17:42] LABS: Anion Gap 6.9 mmol/L (3-11); BUN 17 mg/dL (7-18); C-Reactive Protein 0.39 mg/dL (0.0-0.3); CO2 32.1 mmol/L (21.0-32.0); CREATININE 0.9 mg/dL (0.55-1.02); Calcium 9.5 mg/dL (8.5-10.1); Chloride 103 mmol/L (98-107); Estimated GFR 68.35 (mL/min/1.73m2); Glucose 95 mg/dL (74-106); Magnesium 1.9 mg/dL (1.8-2.4); Potassium 3.7 mmol/L (3.5-5.1); Sodium 142 mmol/L (136-145)
== END 2023-09-14 10:09 | disposition home or self-care (01) ==
LOC: NCHCN 10:08
PROVIDERS: PCP Family Medicine; Visit Provider Family Medicine
DX: Z00.00 Encounter for general adult medical examination without abnormal findings (principal)
CPT/HCPCS: 80048; 85652; 83735; 86140

== ENCOUNTER 2023-09-24 13:31 | Outpatient (CLI) | payer MEDICARE, OTHER, SELFPAY ==
--- NOTE | 2023-09-24 13:45 | RT.EKG_ITS ---
APPROVED REPORT Exam: Resting ECG Reason for Exam: chest pain Patient Location: O HR:78 bpm ECG Measurements Heart Rate 78 AXIS NM 167 P 34 QRSd 92 QRS 8 QT 375 T 37 QTc 428 Conclusion Sinus rhythm...normal P axis, V-rate 50- 99 Normal Electrocardiogram
== END 2023-09-24 13:32 | disposition home or self-care (01) ==
LOC: DI.CARD 13:49
PROVIDERS: PCP Family Medicine; Visit Provider Internal Medicine Cardiovascular Disease
DX: R07.9 Chest pain, unspecified (principal)
CPT/HCPCS: 93010

== ENCOUNTER → 2023-09-24 13:31 | Outpatient (BNVA) | payer MEDICARE, OTHER, SELFPAY | PROVIDERS: PCP Family Medicine; Referring Provider Family Medicine; Visit Provider Internal Medicine Cardiovascular Disease | DX: R07.89 Other chest pain (principal); R00.2 Palpitations; R06.09 Other forms of dyspnea; I10 Essential (primary) hypertension | CPT/HCPCS: 93005; 99213 ==

== ENCOUNTER 2023-09-30 10:25 | Outpatient (REF) | payer MEDICARE, OTHER, SELFPAY ==
[2023-09-30 14:59] LABS: Vitamin B12 355 pg/mL (193-986)
== END 2023-09-30 10:26 | disposition home or self-care (01) ==
LOC: NCHCN 10:25
PROVIDERS: PCP Family Medicine; Visit Provider Family Medicine
DX: Z00.00 Encounter for general adult medical examination without abnormal findings (principal)
CPT/HCPCS: 82607

== ENCOUNTER → 2023-10-22 00:53 | Outpatient (CLI) | payer MEDICARE, OTHER, SELFPAY ==
--- NOTE | 2023-10-22 06:45 | DI.NM_ITS ---
APPROVED REPORT Exam: Pharmacologic Patient Location: Out-Patient Room/Bed: Stress Nurse: Sandi Hargrove RN Ordering Provider:ELYSSA BENNETT, Contact Number: BMI: 37.27 Baseline Rhythm: Sinus Rhythm Indications: Atypical chest pain, ISABEL Medical History Medical History: HLD, PVC's, hypothyroidism, ERMA, pulmonary HTN, GERD, fibromyalgia, ISABEL, paroxysmal SVT, heart murmur, ataxia, obesity, vertigo, anxiety, depression, asthma Cardiac Medications: Vitamin D3, diltiazem, epinephrine auto injector, estradio, advair, hydrocodone- acetaminophen, xopenex, magneiusm oxide, potassium chloride Allergies: Bactrim, adhesive, sulfa, petroleum jelly, latex, amoxicillin, cipro, NSAIDs, pollen, scen lillian chemicals Cardiac Risk Factors: Family hx, HTN, HLD, asthma, obesity Previous Cardiac Procedures: None Pretest Chest Pain Characteristics: 3/10 chest pressure Exercise History: Indeterminate Physical Disabilities: Knees Lung Sounds: Clear to auscultation Heart Sounds: Regular Stress Test Details Test: Pharmacologic stress testing performed using 0.4 mg of regadenoson per 5 mL given IV over 10 s econds. Reason for pharmacologic stress test: physical limitation. Nuclear Acquisition: Rest Tc-99m/Stress Tc-99m 1 day Rest Isotope: Tc-99m Sestamibi. Dose: 13.0 Date: 10/22/2023 Injection Time: 0845 Stress Isotope: Tc-99m Sestamibi. Dose: 35.0 Date: 10/22/2023 Injection Time: 1010 HR Resting HR Supine: 60 bpm Max Heart Rate (APMHR): 149.085426 bpm Target HR (85% APMHR): 126.340864 bpm Max HR Achieved: 90 bpm % of APMHR: 60.40 Recovery HR: 72 bpm BP Resting BP Supine: 152/82 mmHg Max BP: 152/82 mmHg Recovery BP: 124/74 mmHg ECG Resting ECG: Sinus Rhythm Ectopy: None Stress ECG: Sinus Rhythm ST Change: Nondiagnostic low heart rate Arrhythmia: None Recovery ECG: Sinus Rhythm Recovery ST Change: Nondiagnostic low heart rate Clinical Stress Symptoms: Chest pain 8/10, moderate SOB Angina Score: Non-Limiting Rate Pressure Product: [id number] Stress ECG Conclusion 1. 1.Normal clinical,ECG and BP responses 2. 2.Nuclear findings reported separately Stress Test Summary STAGE HR BP SpO2 Symptoms NOTES Supine 60 152/82 1 min post Lexiscan injection 80 146/92 97 8/10 chest pain, moderate SOB 3 min post Lexiscan injection 85 140/70 6 min post Lexiscan injection 72 124/74 99 Chest pain decreased to 5/10, SOB resolved. MPI Conclusion 1.Normal myocardial perfusion, no ischemia or infarct 2.Normal systolic function without wall motion abnormality,EF 54% Radiologist Interpretation Radiologist Interpretation by: Noah Saleem MD Interpretation Date/Time: 10/22/2023 16:11:45
[2023-10-22] MEDS: Regadenoson 0.4 MG/5 ML SYR IVP (11:12)
== END ==
PROVIDERS: PCP Family Medicine; Visit Provider Internal Medicine Cardiovascular Disease
DX: R06.09 Other forms of dyspnea (principal)
CPT/HCPCS: 78452; 93016; 93018; 93017; J2785

== ENCOUNTER 2023-11-12 12:36 | Outpatient (REF) | payer MEDICARE, OTHER, SELFPAY ==
[2023-11-12 13:31] LABS: Creatinine,24hr Ur 1.01 g/24hr (0.60-1.80); Creatinine,Urine 43.95 mg/dL; Total Volume 2350 ml
[2023-11-13 09:40] LABS: Calcium Urine 15.1 mg/dL (See Note); Calcium Urine 24 hr 355 mg/24hr (100-300); Timed Urine Volume 2350 mL
== END 2023-11-12 12:37 | disposition home or self-care (01) ==
LOC: LBN 12:36
PROVIDERS: PCP Family Medicine; Visit Provider Student in an Organized Health Care Education/Training Program
DX: E55.9 Vitamin D deficiency, unspecified (principal); Z78.0 Asymptomatic menopausal state
CPT/HCPCS: 81050; 82340; 82570

== ENCOUNTER → 2023-11-19 01:38 | Outpatient (CLI) | payer MEDICARE, OTHER, SELFPAY ==
--- NOTE | 2023-11-19 | DI.DEXA_ITS ---
Exam(s) XR DEXA BONE DENSITY W/WO YONI EXAM: XR DEXA BONE DENSITY W/WO YONI CLINICAL HISTORY: SCREENING FOR OSTEOPOROSIS IN POSTMENOPAUSAL WOMAN,Z78.0 TECHNIQUE: Routine DEXA evaluation of the lumbar spine, hip, or forearm. COMPARISON: No exams were available for comparison FINDINGS: Performed on a Hologic unit. Lumbar Spine total T-score: -0.2 Hip total T-score:-0.2 Independent reading at the level of the femoral neck yields T-score of -1.8 Forearm total T-score: -0.6 IMPRESSION: Bone mineral density measures in the osteopenia range. Fracture risk is moderate. Note: Any spine fracture indicates 5x risk for subsequent spine fracture and 2x risk for subsequent h ip fracture. World Health Organization criteria for BMD interpretation classify patients: Normal...... T- Score at or above -1.0 Osteopenic... T- Score between -1.0 and -2.5 Osteoporosis... T-Score at or below -2.5
== END ==
PROVIDERS: PCP Family Medicine; Visit Provider Student in an Organized Health Care Education/Training Program
DX: Z78.0 Asymptomatic menopausal state (principal); Z13.820 Encounter for screening for osteoporosis; M85.88 Other specified disorders of bone density and structure, other site
CPT/HCPCS: 77080

== ENCOUNTER 2023-11-26 15:45 | Outpatient (REF) | payer MEDICARE, OTHER, SELFPAY ==
[2023-11-26 16:14] LABS: Ferritin 35 ng/mL (8-252)
== END 2023-11-26 15:46 | disposition home or self-care (01) ==
LOC: LBN 15:45
PROVIDERS: PCP Family Medicine; Visit Provider Nurse Practitioner
DX: M25.511 Pain in right shoulder (principal); R53.83 Other fatigue; G25.81 Restless legs syndrome; G47.00 Insomnia, unspecified
CPT/HCPCS: 82728

== ENCOUNTER → 2024-01-11 07:45 | Outpatient (BNVA) | payer MEDICARE, OTHER, SELFPAY | PROVIDERS: PCP Family Medicine; Referring Provider Family Medicine; Visit Provider Physician Assistant Surgical | DX: J45.909 Unspecified asthma, uncomplicated (principal) | CPT/HCPCS: 99214 ==

== ENCOUNTER → 2024-01-18 10:50 | Outpatient (BNVA) | payer MEDICARE, OTHER, SELFPAY | PROVIDERS: PCP Family Medicine; Visit Provider Internal Medicine Cardiovascular Disease | DX: R06.09 Other forms of dyspnea (principal); R00.2 Palpitations; I49.3 Ventricular premature depolarization; R07.89 Other chest pain; I10 Essential (primary) hypertension | CPT/HCPCS: 99213 ==

== ENCOUNTER → 2024-02-05 00:04 | Outpatient (CLI) | payer MEDICARE, OTHER, SELFPAY ==
--- NOTE | 2024-02-05 06:45 | DI.MAMMO_ITS ---
Exam(s) MAMMO SCREENING EXAM: MAMMO SCREENING CLINICAL HISTORY: screening,z12.39 TECHNIQUE: Mammograms were interpreted according to the usual protocol including computer analysis w [employer] CAD system, tomosynthesis and C-view imaging. COMPARISON: 2014 through 2022 FINDINGS: The breasts are composed of scattered fibroglandular densities, Breast Density category B. No suspicious masses or suspicious microcalcifications are seen. No skin thickening or abnormal axillary lymph nodes are seen. There has been no significant change from prior exams. IMPRESSION: BI-RADS Category 1, Negative mammogram Yearly screening mammography is recommended. Breast Density - Category B, scattered fibroglandular densities. A negative radiographic report should not delay biopsy if a dominant or clinically suspicious mass is present. Up to ten percent of cancers are not identified on mammography. A negative report may reinforce clinical impression. Adenosis and dense breasts may obscure an underlying neoplasm. False positive reports average 6 to 10%. Patient will receive a letter notifying them of these results.
== END ==
PROVIDERS: PCP Family Medicine; Visit Provider Obstetrics & Gynecology
DX: Z12.31 Encounter for screening mammogram for malignant neoplasm of breast (principal)
CPT/HCPCS: 77063; 77067

== ENCOUNTER 2024-02-09 14:24 | Outpatient (REF) | payer MEDICARE, OTHER, SELFPAY ==
[2024-02-09 15:24] LABS: ESR 8 mm/hr (0-30)
[2024-02-09 15:44] LABS: Anion Gap 5.8 mmol/L (3-11); BUN 18 mg/dL (7-18); C-Reactive Protein < 0.50 mg/dL (<or=0.5); CO2 31.2 mmol/L (21.0-32.0); CREATININE 0.7 mg/dL (0.55-1.02); Calcium 8.7 mg/dL (8.5-10.1); Chloride 107 mmol/L (98-107); Creatine Kinase 52 U/L (26-192); Estimated GFR 92.41 (mL/min/1.73m2); Glucose 76 mg/dL (74-106); Potassium 4.3 mmol/L (3.5-5.1); Sodium 144 mmol/L (136-145)
[2024-02-10 10:54] LABS: Ferritin 32 ng/mL (8-252)
== END 2024-02-09 14:25 | disposition home or self-care (01) ==
LOC: NCHCN 14:24
PROVIDERS: PCP Family Medicine; Visit Provider Family Medicine
DX: I10 Essential (primary) hypertension (principal); M79.7 Fibromyalgia; R53.83 Other fatigue; D50.8 Other iron deficiency anemias; G25.81 Restless legs syndrome
CPT/HCPCS: 80048; 82550; 85652; 82728; 83735; 86140

== ENCOUNTER → 2024-02-15 01:55 | Outpatient (CLI) | payer MEDICARE, OTHER, SELFPAY ==
--- NOTE | 2024-02-15 | DI.RAD_ITS ---
Exam(s) XR KNEE LT 3V AP,LAT,MIESHA EXAM: XR KNEE LT 3V AP,LAT,MIESHA CLINICAL HISTORY: LT KNEE PAIN,M25.562. TECHNIQUE: 2D digital imaging was performed. COMPARISON: CR XR KNEE RT 3V AP,LAT,MIESHA from 02/15/2024 FINDINGS: 3 views No evidence of fracture or joint effusion. There is moderate-advanced narrowing of the medial compar tment. Also small marginal osteophytes off the medial compartment. Lateral compartment appears unre markable. Patellofemoral compartment appears unremarkable. IMPRESSION: Moderate-advanced OA for changes in the medial compartment. DATA REPOSITORY: RADIATION DOSE DELIVERED:
--- NOTE | 2024-02-15 | DI.RAD_ITS ---
Exam(s) XR KNEE RT 3V AP,LAT,MIESHA EXAM: XR KNEE RT 3V AP,LAT,MIESHA CLINICAL HISTORY: BILAT KNEE PAIN. TECHNIQUE: 2D digital imaging was performed of the right knee. Three views obtained. AP, lateral an d PA tunnel views were obtained. COMPARISON: CR RIGHT KNEE 3 VIEWS from 10/21/2013 FINDINGS: BONES: No acute fracture is present. No bony destructive lesion is seen. JOINTS: There is moderate narrowing in the medial femoral tibial joint. There osteophytes in all 3 j oint compartments. No joint effusion is seen. SOFT TISSUE: Normal. IMPRESSION: Arthrosis of the right knee. DATA REPOSITORY: RADIATION DOSE DELIVERED:
== END ==
PROVIDERS: PCP Family Medicine; Visit Provider Family Medicine
DX: M17.0 Bilateral primary osteoarthritis of knee (principal)
CPT/HCPCS: 73562

== ENCOUNTER → 2024-03-17 10:09 | Outpatient (BNVA) | payer MEDICARE, OTHER, SELFPAY | PROVIDERS: PCP Family Medicine; Referring Provider Family Medicine; Visit Provider Physical Therapy Assistant | DX: Z12.11 Encounter for screening for malignant neoplasm of colon (principal); K64.9 Unspecified hemorrhoids; R19.5 Other fecal abnormalities ==

== ENCOUNTER 2024-04-04 07:39 | Day surgery (SDC) | payer MEDICARE, OTHER, SELFPAY ==
--- NOTE | 2024-04-03 18:23 | W.PM.DSUDISC ---
Date of service: 04/04/24 Time of Service: 09:24 Discharge Plan Disposition Patient Disposition: Home Condition: Good Discharge Details Reason For Visit: screening colonoscopy Attending Provider: Keron Saleem Primary Care Provider: Lidia Whelan V Home Meds and New Rx's Prescriptions: Continued diltiazem HCl 60 mg capsule,extended release 12 hr 60 mg PO DAILY levalbuterol tartrate [Xopenex HFA] 45 mcg/actuation HFA aerosol inhaler 2 inh inhalation Q6H PRN (Reason: shortness of breath or wheezing) Qty: 15 6RF potassium chloride [K-Tab] 20 mEq tablet extended release 40 meq PO DAILY fluticasone propion-salmeterol [Advair HFA] 115-21 mcg/actuation HFA aerosol inhaler 2 puff inhalation BID Qty: 12 12RF ascorbic acid (vitamin C) 500 mg capsule 1,000 mg PO DAILY up4 Probiotics Adult 15 billion cell capsule 1 cap PO DAILY hydrocodone-acetaminophen 5-325 mg tablet 1 tab PO Q8H PRN CBD oil 16 mg 16 mg oil 16 mg PO HS epinephrine 0.3 MG/0.3 ML auto-injector 0.3 mg IM PRN melatonin 5 MG tablet 5 mg PO HS estradiol [Vagifem] 10 mcg tablet 10 mcg vaginal .Twice weekly 360 Days Qty: 30 3RF ferrous sulfate 325 mg (65 mg iron) tablet 325 mg PO DAILY cholecalciferol (vitamin D3) 50 mcg (2,000 unit) capsule 4,000 unit PO DAILY magnesium oxide 250 mg magnesium tablet 1,000 mg PO DAILY Discontinued bisacodyl [Dulcolax (bisacodyl)] 5 mg tablet,delayed release (DR/EC) 5 mg PO ONCE Qty: 4 0RF Rx Instructions: Take per colonoscopy instructions provided by ordering providers office polyethylene glycol 3350 17 gram/dose powder 17 g PO ONCE Qty: 238 0RF Rx Instructions: Take per colonoscopy instructions provided by ordering providers office Discharge Instructions Instructions: Hemorrhoid Banding Additional Instructions: Karla, we are able to complete your colonoscopy today. During the procedure, you did have a little bit of an irregular heartbeat known as supraventricular tachycardia, or SVT. Otherwise, your vital signs were totally stable during the procedure, and I suspect does not bother you at all. You do not need to do anything specific about this, but I thought it was useful information for you to share with your primary care physician. I did not see any signs of tumors or polyps during the procedure. Like we talked about beforehand, you do have some internal hemorrhoids. I banded 2 out of 3 columns today. Hopefully this will provide some relief of your symptoms. Hemorrhoid banding is very effective, but often times will require repeat treatment in the future. Hopefully, that is not the case for you, but if you notice more bleeding in the future that becomes bothersome, please let me know. The bands are typically pretty well-tolerated by patients. I do think it is useful to use some [id number] hemorrhoid treatments in the days to come if you experience any discomfort. If you find it particularly painful, please let me know. Using stool softeners over the next few days will also be helpful. The bands themselves will be shed with your stools. This typically happens in about a week to week and a half. Most patients never noticed it. If you have any questions at all, or need anything, please do not hesitate to let me know. 1. If tolerated, consume a soft, low fiber diet for 1-2 days. 2. Do not drive, drink alcohol, operate machinery, make critical decisions, or do activities that require coordination or balance for 24 hours. 3. Because air was put into your colon during the procedure, expelling air from your rectum (passing gas or farting) is normal. 4. You may not have a bowel movement for 1-3 days because of the colonoscopy prep. This is normal. 5. Go directly to the emergency room if you notice any of the following: Develop chills (warm to touch), or if you have a thermometer and your temperature is above 101 Difficulty breathing or difficultly swallowing Persistent vomiting Severe abdominal pain, other than gas cramps Severe chest pain Black, tarry stools Any bleeding ? exceeding one tablespoon 6. Call your physician if the site where your intravenous was started becomes red, swollen, painful, and warm to touch. 7. Your physician has reviewed your pre-procedure medications. Please continue to take those medications as previously ordered. You will be given specific information/education regarding any changes to your medications before leaving. Activity:: Activity as Tolerated Diet:: As Tolerated Discharge Orders Discharge Orders: Discharge Order (Routine); Ordered 04/03/24 Ordered By: Keron Saleem DS: Diagnosis Discharge Diagnosis (1) Encounter for screening colonoscopy: Status: Acute Asessment and Plan: Negative screening colonoscopy; follow-up in 10 years
--- NOTE | 2024-04-03 18:26 | COLE_ITS ---
Date of service: 04/04/24 Time of Service: 09:28 Colonoscopy Report Date of procedure: 04/04/24 Pre-op diagnosis general: screening colonoscopy Post-op diagnosis procedure note: other (Internal hemorrhoids) Procedure: colonoscopy with internal hemorrhoid suction ligation Surgeon: Keron Saleem Anesthesia Type: General:No Airway Estimated blood loss (mL): 0 Pathology: none sent Complications: None Disposition: same day Indications: aKrla is a 73 year old woman who needs her next screening colonoscopy Prep: Miralax/Dulcolax Procedure Start Time: 08:58 Procedure End Time: 09:20 Retraction Time: 9 Findings: Negative screening colonoscopy; internal hemorrhoids Procedure Description: After the induction of monitored anesthetic care, and with the patient in left lateral decubitus position, I began by performing an external anorectal exam.? Perineum and skin were normal, as was the anal verge.? There was no evidence of external hemorrhoids.? Next, I performed a digital rectal exam.? I did not appreciate any abnormal findings.? Next, I advanced a colonoscope into the rectal vault.? I performed retroflexion.? There are grade 1 internal hemorrhoids.? Using insufflation, I then advanced the colonoscope beyond the rectal folds and into the sigmoid colon before advancing towards the cecum.? During routine advancement of the colonoscope, there was some supraventricular tachycardia. Patient otherwise appeared well-perfused with normal blood pressure. This resolved spontaneously with no interventions..? The scope was noted to be in the cecum by identification of the ileocecal valve and appendiceal orifice.? I then began withdrawing the colonoscope using repeated irrigation as necessary for full evaluation of the colonic mucosa. ?Once the scope was withdrawn to the level of the rectum, great care was taken to examine portions of the rectal folds.? I withdrew the colonoscope, next inserted a fiberoptic lit anoscope. Again, internal hemorrhoids were observed. Dominant hemorrhoids seem to be in the left lateral and right posterior columns. Suction rubber band ligation was used on these 2 columns. The patient was transferred to the postanesthesia recovery unit given the supraventricular tachycardia. [place] Bowel Prep [place] Bowel Prep Right Colon: 3 Left Colon: 3 Transverse Colon: 3 Total Score: 9
[2024-04-04] VITALS (18 sets, daily range): BP systolic 144–165; BP diastolic 80–103; PULSE 62–79; RESP 13–26; TEMP 36.2–36.7; O2SAT 95–99; BMI 36.8
[2024-04-04] MEDS: Lactated Ringers 1,000 ML 80 ML IV (08:16)
--- NOTE | 2024-04-04 08:46 | W.ANESPRE ---
General Info Date of Service Date Performed: 04/04/24 Height: 5 ft 7 in Weight: 106.7 kg Body Mass Index (BMI): 36.8 Surgical Procedure: Operation Date: 04/04/24 09:10 Proposed Procedure Side Surgeon p Colonoscopy Keron Saleem MD s Possible Hemorrhoid Banding Keron Saleem MD Actual Procedure Side Surgeon p Colonoscopy Not Applicable Keron Saleem MD s Possible Hemorrhoid Banding Keron Saleem MD Meds Allergies and Home Medications Allergies Allergy/AdvReac Type Severity Reaction Status Date / Time sulfamethoxazole Allergy Severe rash Verified 04/04/24 07:53 [From Bactrim] trimethoprim [From Bactrim] Allergy Severe Skin Rash Verified 04/04/24 07:53 venom-honey bee Allergy Severe Anaphylaxis Verified 04/04/24 07:53 adhesive Allergy Intermediate Skin Rash Verified 04/04/24 07:53 petrolatum,white Allergy Intermediate Rash Verified 04/04/24 07:53 [From Petroleum Jelly] prednisone Allergy Intermediate Major Verified 04/04/24 07:53 anxiety and agitation sertraline HCl [From Zoloft] Allergy Intermediate major Verified 04/04/24 07:53 anxiety and agitation Sulfa (Sulfonamide Allergy Intermediate Hives Verified 04/04/24 07:53 Antibiotics) latex Allergy Mild Skin Rash Verified 04/04/24 07:53 amoxicillin Allergy Skin Rash Verified 04/04/24 07:53 ciprofloxacin [From Cipro] Allergy Skin Rash Verified 04/04/24 07:53 house dust Allergy Other (See Verified 04/04/24 07:53 Comment) NSAIDS (Non-Steroidal Allergy Other (See Verified 04/04/24 07:53 Anti-Inflamma Comment) ibuprofen AdvReac Intermediate Nausea Verified 04/04/24 07:53 scented chemicals AdvReac Intermediate SOB Uncoded 04/04/24 07:53 pollen AdvReac Other (See Uncoded 04/04/24 07:53 Comment) Home Medication Medication Instructions Recorded epinephrine 0.3 mg/0.3 mL 0.3 mg IM PRN 12/06/13 injection, auto-injector melatonin 5 mg tablet 5 mg PO HS 04/05/18 Lactobacillus 1 cap PO DAILY 11/04/22 acidophil,plantar-Bifido no.7 15 billion cell capsule (up4 Probiotics Adult) ascorbic acid (vitamin C) 500 mg 1,000 mg PO DAILY 11/04/22 capsule CBD oil 16 mg 16 mg PO HS 11/06/22 hydrocodone 5 mg-acetaminophen 325 1 tab PO Q8H PRN 11/06/22 mg tablet levalbuterol tartrate 45 2 inh inhalation Q6H PRN shortness 05/06/23 mcg/actuation aerosol inhaler of breath or wheezing #15 grams (Xopenex HFA) fluticasone propionate 115 2 puff inhalation BID #12 grams 07/14/23 mcg-salmeterol 21 mcg/actuation HFA inhaler (Advair HFA) potassium chloride 20 mEq 40 meq PO DAILY 07/14/23 tablet,extended release (K-Tab) diltiazem HCl 60 mg 60 mg PO DAILY 09/24/23 capsule,extended release 12 hr estradiol 10 mcg vaginal tablet 10 mcg vaginal .Twice weekly 12 12/01/23 (Vagifem) months #30 tabs ferrous sulfate 325 mg (65 mg 325 mg PO DAILY 02/24/24 iron) tablet cholecalciferol (vitamin D3) 50 4,000 unit PO DAILY 03/17/24 mcg (2,000 unit) capsule magnesium oxide 1,000 mg PO DAILY 03/17/24 Current Visit Medications: Current Medications Generic Name Dose Route Start Last Admin Trade Name Freq PRN Reason Stop Dose Admin Ringer's Solution 1,000 mls @ 80 mls/hr 04/04/24 06:00 04/04/24 08:16 IV 05/01/24 23:59 80 mls/hr INFUSION ELLE Administration IV Miscellaneous Supplies 1 each 04/04/24 06:00 Iv Access IV 05/01/24 23:59 DIRECTED ELLE Ondansetron HCl 4 mg 04/03/24 18:27 Ondansetron 4 Mg/2 Ml Vial IVP 05/03/24 18:26 Q4H PRN PRN Nausea / Vomiting Sodium Chloride 0 ml 04/04/24 06:00 Normal Saline Flush 10 Ml Syr IV 05/01/24 23:59 PRN PRN Sodium Chloride 0 ml 04/04/24 06:00 Normal Saline 10 Ml Vial IJ 05/01/24 23:59 DIRECTED PRN Sterile Water 0 ml 04/04/24 06:00 Water,Injection,Sterile 10 Ml Vial IJ 05/01/24 23:59 DIRECTED PRN PFSH Active Problems Active Problems: Problem Status Onset Code Encounter for screening colonoscopy Z12.11 Tick bite W57.XXXA Dyspnea on exertion R06.09 Polyarthritis M13.0 Hypertensive disorder I10 Allergic rhinitis J30.9 Paroxysmal supraventricular tachycardia I47.1 Heart murmur R01.1 Iron deficiency anemia due to dietary causes D50.8 Fatigue R53.83 Ataxia R27.0 Sense of smell impaired R43.8 Chest tightness R07.89 Visual changes H53.9 Lacunar infarction I63.81 UTI (urinary tract infection) N39.0 Hematuria R31.9 Hypokalemia E87.6 Vaginal irritation N89.8 Atelectasis J98.11 Urticaria L50.9 Erythematous rash R21 Weight gain R63.5 Dysphagia R13.10 Thyromegaly E01.0 Lymphadenopathy R59.1 Atrophic vulvovaginitis N95.2 Dysuria R30.0 Yeast Dermatitis B37.2 Recurrent hernia K46.9 Well woman exam with routine gynecological exam Z01.419 Atrophic vaginitis N95.2 Vulvar irritation N90.89 Other chest pain R07.89 Shoulder injury related to vaccine administration (SIRVA) S49.80XA, T50.Z95A Bursitis of right shoulder M75.51 Back pain, chronic M54.9, G89.29 Obesity E66.9 Rotator cuff syndrome of right shoulder M75.101 Anxiety and depression F41.9, F32.A Lumbar radiculopathy M54.16 Dyspnea R06.00 Peripheral neuropathy G62.9 Restless leg syndrome G25.81 Vitamin B12 deficiency E53.8 Shingles B02.9 Scapulalgia M89.8X1 Vertigo R42 Arm pain, right M79.601 Subacromial bursitis of right shoulder joint M75.51 Vaccines and biological substances adverse effect in therapeutic use T50.Z95A Headache R51.9 Pain of both eyes H57.13 Dry eye syndrome, bilateral H04.123 Dry mouth R68.2 Arthralgia M25.50 Positive antinuclear antibody R76.8 Shoulder pain, right M25.511 Lacunar infarction I63.81 Arthritis of carpometacarpal (CMC) joint of right thumb M18.11 PVC (premature ventricular contraction) I49.3 Right wrist pain M25.531 Subacute right lumbar radiculopathy M54.16 Carpal tunnel syndrome on both sides G56.03 Pre-op evaluation Z01.818 Recurrent ventral hernia K43.2 Weakness R53.1 Leg paresthesia R20.2 Chronic low back pain with bilateral sciatica M54.41, M54.42, G89.29 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 unsure on dx Vitamin D deficiency GERD (gastroesophageal reflux disease) Fibromyalgia IBS (irritable bowel syndrome) Medical History Comments:: Pt. states she cannot lay on her right side as it triggers her vertigo Surgical History Surgical History (Updated 03/31/24 @ 12:59 by Tyree Rodriguez) History of abdominal surgery 1. abdominal wall reconstruction 2. Incarcerated Hernia S/P carpal tunnel release History of abdominal hernia multiple surgeries; 2 in 2018 Samanta Fundoplication (~2007) x2 Repair of inguinal hernia (09/14/15) Right - done at [facility] Cholecystectomy (~2007) Tobacco Smoking/Tobacco Use Status: Never Alcohol Alcohol Intake: never Substance Use Substance use: Occasionally Substance use type: marijuana Details: cbd oil and vapes THC Prental History History 1 Para 0 Hx # Term Pregnancies Multiple births Hx # Pregnancies Ectopic pregnancies AB induced Hx Number of Living Children AB spontaneous Vital Signs and Lab Results Vital Signs Most Recent Vital Signs in EMR: Most Recent Vital Signs Temp Pulse Resp BP Pulse Ox 36.3 C L 77 16 165/95 H 98 04/04/24 07:56 04/04/24 07:56 04/04/24 07:56 04/04/24 07:56 04/04/24 07:56 Lab Results Blood Type / Crossmatch: No Data to Display Complete Blood Count: No Data to Display Complete Metabolic Panel: No Data to Display Liver Function Panel: No Data to Display Coagulation Panel: No Data to Display Cardiac Panel: No Data to Display Arterial Blood Gas: No Data to Display Venous Blood Gas: No Data to Display Pancreas Panel: No Data to Display Thyroid Panel: No Data to Display Infectious Disease: No Data to Display Blood Cultures: No Data to Display Toxicology Panel: No Data to Display Anesthesia Assessment and Plan Anesthesia History Personal History: No History of Anesthesia Complications Family History: No Family History of Anesthesia Complications Exercise Tolerance Exercise Tolerance: Metabolic Equivalents>4 Pertinent Negatives Pertinent Negatives: No Symptoms of GERD Cardiac & Pulmonary Exam Cardiac Exam: Normal S1/S2 Heart Sounds Pulmonary Exam: Clear Bilateral Breath Sounds Implantable Cardiac Device Does patient have a Pacemaker or an ICD?: No Airway Exam Known Difficult Airway: No Mallampati Class: 2 Mouth Opening: Normal (> 3cm) Thyromental Distance: Greater than 3 cm Neck Range of Motion: Full ROM Neck Circumference: Normal Teeth Condition: Normal Dentition ASA Classification ASA Score: ASA 2 Emergency Case?: No NPO Status NPO Status: NPO Clears >2 hours, Solids >8 hours Anesthesia Plan Resuscitation Status: Full Code Anesthesia Technique: General Anesthesia Airway Planned: Natural Airway Monitors Used: Standard Monitors
[2024-04-04] MEDS: ACETAMINOPHEN 1,000 MG/100 ML BTL 400 MG IVPB (09:49)
--- NOTE | 2024-04-04 10:25 | W.ANESPOSTOP ---
Postoperative Evaluation Date, Time and Location Date Performed: 04/04/24 Time Performed: 10:25 Patient Location: Day Surgery Unit Vital Signs Most Recent Imported Vital Signs: Most Recent Vital Signs Temp Pulse Resp BP Pulse Ox 36.6 C 63 16 161/96 H 98 04/04/24 09:38 04/04/24 09:56 04/04/24 10:00 04/04/24 09:56 04/04/24 10:00 Pain Score Most Recent Pain Score: Most Recent Pain Score Pain Level 7 04/04/24 10:00 Assessment Mental Status: Awake (Alert & Oriented to Patient Baseline) Airway and Respiratory Function: Patent airway with normal (patient baseline) respiratory exam Cardiovascular Function: Hemodynamically Stable Hydration Status: Adequately Hydrated Nausea & Vomiting: No Nausea or Vomiting Pain: Pain is tolerable per patient Peripheral Nerve Block: Patient did not receive a nerve block
== END 2024-04-04 10:45 | disposition home or self-care (01) ==
LOC: SUR 07:40
PROVIDERS: PCP Family Medicine; Visit Provider Surgery
PROC: 0DJD8ZZ Inspection of Lower Intestinal Tract, Via Natural or Artificial Opening Endoscopic (ICD-10-PCS; CPT 45378; principal; 2024-04-04 09:00)
DX: Z12.11 Encounter for screening for malignant neoplasm of colon (principal); K64.0 First degree hemorrhoids
CPT/HCPCS: 46221; G0121; J0131; J2001; J2704

== ENCOUNTER 2024-04-07 17:00 | Outpatient (REF) | payer MEDICARE, OTHER, SELFPAY ==
[2024-04-07 20:54] LABS: Bacteria Rare HPF (Negative); C & S Indicated? C&S Done As Ordered; Crystals Negative HPF (Negative); Epithelial Cells Few HPF (Negative); Mucus Negative (Negative); RBC Negative HPF (0-2)
[2024-04-07 20:55] LABS: Casts Negative LPF (Negative)
== END 2024-04-07 17:01 | disposition home or self-care (01) ==
LOC: LBN 17:00
PROVIDERS: PCP Family Medicine; Visit Provider Physician Assistant Medical
DX: R10.2 Pelvic and perineal pain (principal)
CPT/HCPCS: 81015; 87086; 87480; 87510; 87660

== ENCOUNTER 2024-04-10 09:50 | Emergency (ER) | payer MEDICARE, OTHER, SELFPAY ==
[2024-04-10 09:52] VITALS: BP 170/104; PULSE 82; RESP 16; TEMP 36.9; O2SAT 98
--- NOTE | 2024-04-10 10:27 | NUR.NOTE ---
Nursing Note:Faxed Ultrasound request RUE R/O DVT follow up ED, to be done SANAZ.
[2024-04-10 10:39] VITALS: BP 158/82; PULSE 76; RESP 16; TEMP 36.9; O2SAT 98
[2024-04-10] MEDS: Apixaban 5 MG TAB 10 MG PO (10:39)
--- NOTE | 2024-04-10 11:13 | W.ED.GENAD ---
Discharge Plan Disposition Patient Disposition: Home Condition: Stable Discharge Details Clinical Impression: Arm pain, right Primary Care Provider: Lidia Whelan V ED Provider: Holli Albarado Home Meds and New Rx's Prescriptions: Continued diltiazem HCl 60 mg capsule,extended release 12 hr 60 mg PO DAILY levalbuterol tartrate [Xopenex HFA] 45 mcg/actuation HFA aerosol inhaler 2 inh inhalation Q6H PRN (Reason: shortness of breath or wheezing) Qty: 15 6RF potassium chloride [K-Tab] 20 mEq tablet extended release 40 meq PO DAILY fluticasone propion-salmeterol [Advair HFA] 115-21 mcg/actuation HFA aerosol inhaler 2 puff inhalation BID Qty: 12 12RF ascorbic acid (vitamin C) 500 mg capsule 1,000 mg PO DAILY up4 Probiotics Adult 15 billion cell capsule 1 cap PO DAILY hydrocodone-acetaminophen 5-325 mg tablet 1 tab PO Q8H PRN CBD oil 16 mg 16 mg oil 16 mg PO HS epinephrine 0.3 MG/0.3 ML auto-injector 0.3 mg IM PRN melatonin 5 MG tablet 5 mg PO HS estradiol [Vagifem] 10 mcg tablet 10 mcg vaginal .Twice weekly 360 Days Qty: 30 3RF cholecalciferol (vitamin D3) 50 mcg (2,000 unit) capsule 4,000 unit PO DAILY magnesium oxide 250 mg magnesium tablet 1,000 mg PO DAILY nitrofurantoin monohyd/m-cryst [Macrobid] 100 mg capsule 100 mg PO BID Rx Instructions: must administer with a meal/food Discharge Instructions Additional Instructions: Please call for ultrasound first thing in the morning at 7 AM, the number is listed on the discharge paperwork Please continue with warm compresses You did receive a dose of Eliquis, this can predispose you to bleeding, if you note blood in your stool or chest pain, or shortness of breath, please be reevaluated immediately Referrals: Lidia Whelan MD [Primary Care Provider] - 1 day HPI General Date/Time Provider Initiated Documentation: 04/10/24 10:06. HPI Narrative: This 73-year-old female presents with report of right hand and upper extremity pain. Patient is status post colonoscopy on Thursday of this week which was uneventful per patient. She states that she initially just had some hand pain over the area of bruise where she had her IV placed for moderate sedation. But she states now her entire arm is aching. She states that she has had some bruising and swelling to the forearm. She adamantly denies any chest pain or shortness of breath. She denies any dizziness or weakness. She denies prior history of similar symptoms in the past or history of coagulopathy. She denies any exertional dyspnea or chest pain.. Related Data Home Medications Medication Instructions Recorded Confirmed epinephrine 0.3 mg/0.3 mL 0.3 mg IM PRN 12/06/13 04/10/24 injection, auto-injector melatonin 5 mg tablet 5 mg PO HS 04/05/18 04/10/24 Lactobacillus 1 cap PO DAILY 11/04/22 04/10/24 acidophil,plantar-Bifido no.7 15 billion cell capsule (up4 Probiotics Adult) ascorbic acid (vitamin C) 500 mg 1,000 mg PO DAILY 11/04/22 04/10/24 capsule CBD oil 16 mg 16 mg PO HS 11/06/22 04/10/24 hydrocodone 5 mg-acetaminophen 325 1 tab PO Q8H PRN 11/06/22 04/10/24 mg tablet levalbuterol tartrate 45 2 inh inhalation Q6H PRN shortness 05/06/23 04/10/24 mcg/actuation aerosol inhaler of breath or wheezing #15 grams (Xopenex HFA) fluticasone propionate 115 2 puff inhalation BID #12 grams 07/14/23 04/10/24 mcg-salmeterol 21 mcg/actuation HFA inhaler (Advair HFA) potassium chloride 20 mEq 40 meq PO DAILY 07/14/23 04/10/24 tablet,extended release (K-Tab) diltiazem HCl 60 mg 60 mg PO DAILY 09/24/23 04/10/24 capsule,extended release 12 hr estradiol 10 mcg vaginal tablet 10 mcg vaginal .Twice weekly 12 12/01/23 04/10/24 (Vagifem) months #30 tabs cholecalciferol (vitamin D3) 50 4,000 unit PO DAILY 03/17/24 04/10/24 mcg (2,000 unit) capsule magnesium oxide 1,000 mg PO DAILY 03/17/24 04/10/24 nitrofurantoin 100 mg PO BID 04/10/24 04/10/24 monohydrate/macrocrystals 100 mg capsule (Macrobid) Previous Rx's Medication Instructions Recorded levalbuterol tartrate 45 2 inh inhalation Q6H PRN shortness 05/06/23 mcg/actuation aerosol inhaler of breath or wheezing #15 grams (Xopenex HFA) fluticasone propionate 115 2 puff inhalation BID #12 grams 07/14/23 mcg-salmeterol 21 mcg/actuation HFA inhaler (Advair HFA) estradiol 10 mcg vaginal tablet 10 mcg vaginal .Twice weekly 12 12/01/23 (Vagifem) months #30 tabs Allergies Allergy/AdvReac Type Severity Reaction Status Date / Time sulfamethoxazole Allergy Severe rash Verified 04/10/24 10:05 [From Bactrim] trimethoprim [From Bactrim] Allergy Severe Skin Rash Verified 04/10/24 10:05 venom-honey bee Allergy Severe Anaphylaxis Verified 04/10/24 10:05 adhesive Allergy Intermediate Skin Rash Verified 04/10/24 10:05 petrolatum,white Allergy Intermediate Rash Verified 04/10/24 10:05 [From Petroleum Jelly] prednisone Allergy Intermediate Major Verified 04/10/24 10:05 anxiety and agitation sertraline HCl [From Zoloft] Allergy Intermediate major Verified 04/10/24 10:05 anxiety and agitation Sulfa (Sulfonamide Allergy Intermediate Hives Verified 04/10/24 10:05 Antibiotics) latex Allergy Mild Skin Rash Verified 04/10/24 10:05 amoxicillin Allergy Skin Rash Verified 04/10/24 10:05 ciprofloxacin [From Cipro] Allergy Skin Rash Verified 04/10/24 10:05 house dust Allergy Other (See Verified 04/10/24 10:05 Comment) NSAIDS (Non-Steroidal Allergy Other (See Verified 04/10/24 10:05 Anti-Inflamma Comment) ibuprofen AdvReac Intermediate Nausea Verified 04/10/24 10:05 scented chemicals AdvReac Intermediate SOB Uncoded 04/10/24 10:05 pollen AdvReac Other (See Uncoded 04/10/24 10:05 Comment) General Stated Complaint: Orthopedic MARC: 3 Exam Narrative Exam Narrative: 73-year-old female, no acute distress, right groin upper arm swelling and tenderness. Palpable venous cord in her hand, tenderness diffusely throughout the arm, no lymphadenopathy appreciated, no palpable spells. Ecchymosis noted on the dorsal aspect of the right hand overlying where the IV was placed. Cardiac rate rhythm regular, no respiratory distress, no evidence of secondary infection. No peripheral edema or calf swelling or tenderness appreciated Course Vital Signs Vital signs: Vital Signs Temperature 36.9 C 04/10/24 09:52 Pulse 82 04/10/24 09:52 Respiratory Rate 16 04/10/24 09:52 Blood Pressure 170/104 H 04/10/24 09:52 Pulse Oximetry 98 04/10/24 09:52 Temperature 36.9 C 04/10/24 10:39 Temperature Source Tympanic 04/10/24 09:52 Pulse 76 04/10/24 10:39 Respiratory Rate 16 04/10/24 10:39 Respiratory Effort Normal 04/10/24 10:10 Blood Pressure 158/82 H 04/10/24 10:39 Blood Pressure Position Sitting 04/10/24 09:52 Pulse Oximetry 98 04/10/24 10:39 Oxygen Delivery Method Room Air 04/10/24 09:52 Oxygen Flow Rate 0 04/10/24 09:52 Pain Level 3 04/10/24 10:39 Medical Decision Making 73-year-old female status post colonoscopy with right arm swelling and tenderness. Concern clinically for superficial versus deep thrombosis to right upper extremity. No clinical signs or symptoms consistent with pulmonary embolism, palpable venous cord in hands. No significant swelling mild swelling to forearm. Distal pulses intact. Cardiac rate rhythm regular, no respiratory distress. As we do not have ultrasound capability on weekends I will treat patient with a single dose of Eliquis and order an ultrasound for tomorrow. We discussed bleeding risk associated with Eliquis consumption and I did review colonoscopy without significant contraindication for Eliquis administration. Patient will follow-up tomorrow, return precautions reviewed and patient expressed understanding. Quality:SDOH Health Related Social Needs: No Data to Display PFSH All Active Problems (Updated 04/10/24 @ 10:31 by OSWALD Ross) Arm pain, right (Acute) Encounter for screening colonoscopy (Acute) Tick bite (Acute) Dyspnea on exertion (Acute) Polyarthritis (Acute) Hypertensive disorder (Chronic) Allergic rhinitis (Acute) Paroxysmal supraventricular tachycardia (Acute) Heart murmur (Acute) Iron deficiency anemia due to dietary causes (Acute) Fatigue (Acute) Ataxia (Acute) Sense of smell impaired (Acute) Chest tightness (Acute) Visual changes (Acute) Lacunar infarction (Acute) UTI (urinary tract infection) (Acute) Hematuria (Acute) Hypokalemia (Acute) Vaginal irritation (Acute) Atelectasis (Acute) Basilar lung Urticaria (Acute) Erythematous rash (Acute) Weight gain (Acute) Dysphagia (Acute) Thyromegaly (Acute) Lymphadenopathy (Acute) Atrophic vulvovaginitis (Acute) Dysuria (Acute) Yeast Dermatitis (Acute) Recurrent hernia (Acute) Well woman exam with routine gynecological exam (Acute) Atrophic vaginitis (Acute) Vulvar irritation (Acute) Other chest pain (Acute) Shoulder injury related to vaccine administration (SIRVA) (Acute) Bursitis of right shoulder (Acute) Back pain, chronic (Acute) Obesity (Chronic) Rotator cuff syndrome of right shoulder (Acute) Anxiety and depression (Chronic) Lumbar radiculopathy (Acute) Dyspnea (Acute) Peripheral neuropathy (Acute) Restless leg syndrome (Acute) Vitamin B12 deficiency (Acute) Shingles (Acute) Scapulalgia (Acute) Vertigo (Acute) Arm pain, right (Acute) Subacromial bursitis of right shoulder joint (Acute) Vaccines and biological substances adverse effect in therapeutic use (Acute) Headache (Acute) Pain of both eyes (Acute) Dry eye syndrome, bilateral (Acute) Dry mouth (Acute) Arthralgia (Acute) Positive antinuclear antibody (Acute) Shoulder pain, right (Acute) Lacunar infarction (Acute) Arthritis of carpometacarpal (CMC) joint of right thumb (Acute) Injection: 01/14/21; 08/21/20 PVC (premature ventricular contraction) (Acute) Right wrist pain (Acute) Subacute right lumbar radiculopathy (Acute) Carpal tunnel syndrome on both sides (Acute) Pre-op evaluation (Acute) Recurrent ventral hernia (Acute) Weakness (Acute) Leg paresthesia (Acute) Chronic low back pain with bilateral sciatica (Acute) Hand anomaly (Acute) SVT (supraventricular tachycardia) (Acute 12/20/15) Hyperlipidemia (Acute) Family history of breast cancer (Acute 12/08/14) Essential hypertension (Acute 12/20/15) Degenerative disk disease (Acute 02/09/15) RLQ pain and RLE radiculopathy Chronic midline low back pain with left-sided sciatica (Acute 12/16/17) Asthma (Acute) Acquired hypothyroidism (Acute 12/20/15) Medical History (Updated 04/10/24 @ 10:31 by OSWALD Ross) Palpitations Pulmonary hypertension Personal history of COVID-19 Calf pain ERMA (obstructive sleep apnea) ? unsure on dx Vitamin D deficiency GERD (gastroesophageal reflux disease) Fibromyalgia IBS (irritable bowel syndrome) Surgical History (Updated 04/05/24 @ 08:14 by Le Zaidi) History of colonoscopy (~03/2024) History of abdominal surgery 1. abdominal wall reconstruction 2. 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
--- NOTE | 2024-04-11 07:18 | NUR.NOTE ---
Nursing Note: Recieved a call from Radiology regarding pt ultrasound order, they are unable to use rule out DVT as the diagnosis. Radiology was informed it was due to bruising/pain from previous IV site and the ultrasound was to rule out a DVT.
== END 2024-04-10 10:41 | disposition home or self-care (01) ==
PROVIDERS: Emergency Provider Physician Assistant; PCP Family Medicine
DX: R22.31 Localized swelling, mass and lump, right upper limb (principal); T82.848A Pain due to vascular prosthetic devices, implants and grafts, initial encounter; I10 Essential (primary) hypertension; E78.5 Hyperlipidemia, unspecified
CPT/HCPCS: 99283

== ENCOUNTER 2024-04-11 14:48 | Emergency (ER) | payer MEDICARE, OTHER, SELFPAY ==
--- NOTE | 2024-04-11 14:52 | ED.GENADUL_ITS ---
Discharge Plan Disposition Patient Disposition: Home Discharge Details Clinical Impression: Traumatic ecchymosis of right hand Primary Care Provider: Lidia Whelan V ED Provider: Kamlesh Zelaya Home Meds and New Rx's Prescriptions: Continued diltiazem HCl 60 mg capsule,extended release 12 hr 60 mg PO DAILY levalbuterol tartrate [Xopenex HFA] 45 mcg/actuation HFA aerosol inhaler 2 inh inhalation Q6H PRN (Reason: shortness of breath or wheezing) Qty: 15 6RF potassium chloride [K-Tab] 20 mEq tablet extended release 40 meq PO DAILY fluticasone propion-salmeterol [Advair HFA] 115-21 mcg/actuation HFA aerosol inhaler 2 puff inhalation BID Qty: 12 12RF ascorbic acid (vitamin C) 500 mg capsule 1,000 mg PO DAILY up4 Probiotics Adult 15 billion cell capsule 1 cap PO DAILY hydrocodone-acetaminophen 5-325 mg tablet 1 tab PO Q8H PRN CBD oil 16 mg 16 mg oil 16 mg PO HS epinephrine 0.3 MG/0.3 ML auto-injector 0.3 mg IM PRN melatonin 5 MG tablet 5 mg PO HS estradiol [Vagifem] 10 mcg tablet 10 mcg vaginal .Twice weekly 360 Days Qty: 30 3RF cholecalciferol (vitamin D3) 50 mcg (2,000 unit) capsule 4,000 unit PO DAILY magnesium oxide 250 mg magnesium tablet 1,000 mg PO DAILY nitrofurantoin monohyd/m-cryst [Macrobid] 100 mg capsule 100 mg PO BID Rx Instructions: must administer with a meal/food Discharge Instructions Additional Instructions: You are seen in the emergency department for your swollen hand. Your ultrasound showed no sign of a blood clot in your hand. As we discussed, please elevate your hand and use hot compresses. Please return to the emergency department if you develop fevers worsening swelling or any pain in her hand. Discharge Data Discharge Date/Time-TO BE ENTERED AT DEPARTURE: 04/11/24 15:39 HPI General Date/Time Provider Initiated Documentation: 04/11/24 14:52 . HPI Narrative: MDM This is an overall very well-appearing normothermic and not tachycardic 73-year-old movkl-ntww-xrdvyyji female with right hand swelling and negative outpatient duplex study for which patient will be discharged from the ED. No pain out of proportion to suggest necrotizing soft tissue infection. No significant trauma to hand nor upper extremity so my suspicion is low for fracture so I did not feel that the patient required plain films. Right hand warm and well-perfused so I am not suspicious for critical limb ischemia so I do not feel that the patient required a CT angiogram of her upper extremity. No erythema to suggest cellulitis. No fluctuance to suggest abscess. Good range of motion in right wrist so my suspicion is low for septic joint. No sensory changes in right hand nor history of cervical rib so I am not suspicious for thoracic outlet syndrome. No upper extremity weakness to suggest CVA so I did not feel that the patient required a CT head. No vomiting or diarrhea so my suspicion is low for acute electrolyte abnormality since I did not feel that the patient required assessment several labs. Patient and I discussed warm compresses and monitoring her right upper extremity. I advised that if the patient develops streaking signs of infection fevers or any significant erythema that she should return to the emergency department as this would be concerning for the possibility of superficial thrombophlebitis. Patient understood her return indications and was discharged with empiric trial of expectant outpatient management. HPI This is a [id number] 73-year-old female who is 1 week status post colonoscopy with right hand ecchymosis and recent right upper extremity duplex which was negative for DVT. Patient was seen in the emergency department yesterday. An outpatient duplex study was ordered. Patient reports that her symptoms have been slowly improving. He does have rings on the right hand which she is able to remove. She has had no recent fevers. She has had no subsequent IVs. No history of IV drug use nor any recent PICC line. No trauma to right upper extremity. No dysuria frequency chest pain or shortness of breath. No history of cervical ribs. No syncope. Exam General: Well-appearing in no acute distress speaking in complete sentences. Head: Normocephalic, atraumatic. Eye: Extraocular eye movements intact. No conjunctival injection. No scleral icterus. Ear, nose, mouth, throat: Grossly normal inspection. Normal voice, handling secretions normally. Neck: Trachea midline. Cardiovascular: Well-perfused distal extremities. Respiratory: Nonlabored respiration. Gastrointestinal: Nondistended abdomen. Musculoskeletal: Right upper extremity warm well-perfused. 2+ radial pulse. Cap refill less than 2 seconds in the right fingertips. On the dorsal and radial side of the patient's right hand there is an approximately 4 x 4 centimeter ecchymotic area. No fluctuance. No significant erythema. Patient has full range of motion in her right hand across the radial, median, and ulnar nerve distributions where sensation is also intact. No tenderness in right wrist forearm elbow nor shoulder where there is also full range of motion. Skin: Normal for age and race, grossly normal temperature and turgor. No acute rash. Neurologic: Alert and appropriate, no apparent acute deficits. Psychiatric: Mood and manner are appropriate. Grooming and personal hygiene are appropriate. Related Data Home Medications Medication Instructions Recorded Confirmed epinephrine 0.3 mg/0.3 mL 0.3 mg IM PRN 12/06/13 04/11/24 injection, auto-injector melatonin 5 mg tablet 5 mg PO HS 04/05/18 04/11/24 Lactobacillus 1 cap PO DAILY 11/04/22 04/11/24 acidophil,plantar-Bifido no.7 15 billion cell capsule (up4 Probiotics Adult) ascorbic acid (vitamin C) 500 mg 1,000 mg PO DAILY 11/04/22 04/11/24 capsule CBD oil 16 mg 16 mg PO HS 11/06/22 04/11/24 hydrocodone 5 mg-acetaminophen 325 1 tab PO Q8H PRN 11/06/22 04/11/24 mg tablet levalbuterol tartrate 45 2 inh inhalation Q6H PRN shortness 05/06/23 04/11/24 mcg/actuation aerosol inhaler of breath or wheezing #15 grams (Xopenex HFA) fluticasone propionate 115 2 puff inhalation BID #12 grams 07/14/23 04/11/24 mcg-salmeterol 21 mcg/actuation HFA inhaler (Advair HFA) potassium chloride 20 mEq 40 meq PO DAILY 07/14/23 04/11/24 tablet,extended release (K-Tab) diltiazem HCl 60 mg 60 mg PO DAILY 09/24/23 04/11/24 capsule,extended release 12 hr estradiol 10 mcg vaginal tablet 10 mcg vaginal .Twice weekly 12 12/01/23 04/11/24 (Vagifem) months #30 tabs cholecalciferol (vitamin D3) 50 4,000 unit PO DAILY 03/17/24 04/11/24 mcg (2,000 unit) capsule magnesium oxide 1,000 mg PO DAILY 03/17/24 04/11/24 nitrofurantoin 100 mg PO BID 04/10/24 04/11/24 monohydrate/macrocrystals 100 mg capsule (Macrobid) Previous Rx's Medication Instructions Recorded levalbuterol tartrate 45 2 inh inhalation Q6H PRN shortness 05/06/23 mcg/actuation aerosol inhaler of breath or wheezing #15 grams (Xopenex HFA) fluticasone propionate 115 2 puff inhalation BID #12 grams 07/14/23 mcg-salmeterol 21 mcg/actuation HFA inhaler (Advair HFA) estradiol 10 mcg vaginal tablet 10 mcg vaginal .Twice weekly 12 12/01/23 (Vagifem) months #30 tabs Allergies Allergy/AdvReac Type Severity Reaction Status Date / Time sulfamethoxazole Allergy Severe rash Verified 04/11/24 15:13 [From Bactrim] trimethoprim [From Bactrim] Allergy Severe Skin Rash Verified 04/11/24 15:13 venom-honey bee Allergy Severe Anaphylaxis Verified 04/11/24 15:13 adhesive Allergy Intermediate Skin Rash Verified 04/11/24 15:13 petrolatum,white Allergy Intermediate Rash Verified 04/11/24 15:13 [From Petroleum Jelly] prednisone Allergy Intermediate Major Verified 04/11/24 15:13 anxiety and agitation sertraline HCl [From Zoloft] Allergy Intermediate major Verified 04/11/24 15:13 anxiety and agitation Sulfa (Sulfonamide Allergy Intermediate Hives Verified 04/11/24 15:13 Antibiotics) latex Allergy Mild Skin Rash Verified 04/11/24 15:13 amoxicillin Allergy Skin Rash Verified 04/11/24 15:13 ciprofloxacin [From Cipro] Allergy Skin Rash Verified 04/11/24 15:13 house dust Allergy Other (See Verified 04/11/24 15:13 Comment) NSAIDS (Non-Steroidal Allergy Other (See Verified 04/11/24 15:13 Anti-Inflamma Comment) ibuprofen AdvReac Intermediate Nausea Verified 04/11/24 15:13 scented chemicals AdvReac Intermediate SOB Uncoded 04/11/24 15:13 pollen AdvReac Other (See Uncoded 04/11/24 15:13 Comment) General MARC: 3 Medical Decision Making Quality:SDOH Health Related Social Needs: No Data to Display PFSH All Active Problems (Updated 04/11/24 @ 15:25 by Kamlesh Zelaya MD) Traumatic ecchymosis of right hand (Acute) Arm pain, right (Acute) Encounter for screening colonoscopy (Acute) Tick bite (Acute) Dyspnea on exertion (Acute) Polyarthritis (Acute) Hypertensive disorder (Chronic) Allergic rhinitis (Acute) Paroxysmal supraventricular tachycardia (Acute) Heart murmur (Acute) Iron deficiency anemia due to dietary causes (Acute) Fatigue (Acute) Ataxia (Acute) Sense of smell impaired (Acute) Chest tightness (Acute) Visual changes (Acute) Lacunar infarction (Acute) UTI (urinary tract infection) (Acute) Hematuria (Acute) Hypokalemia (Acute) Vaginal irritation (Acute) Atelectasis (Acute) Basilar lung Urticaria (Acute) Erythematous rash (Acute) Weight gain (Acute) Dysphagia (Acute) Thyromegaly (Acute) Lymphadenopathy (Acute) Atrophic vulvovaginitis (Acute) Dysuria (Acute) Yeast Dermatitis (Acute) Recurrent hernia (Acute) Well woman exam with routine gynecological exam (Acute) Atrophic vaginitis (Acute) Vulvar irritation (Acute) Other chest pain (Acute) Shoulder injury related to vaccine administration (SIRVA) (Acute) Bursitis of right shoulder (Acute) Back pain, chronic (Acute) Obesity (Chronic) Rotator cuff syndrome of right shoulder (Acute) Anxiety and depression (Chronic) Lumbar radiculopathy (Acute) Dyspnea (Acute) Peripheral neuropathy (Acute) Restless leg syndrome (Acute) Vitamin B12 deficiency (Acute) Shingles (Acute) Scapulalgia (Acute) Vertigo (Acute) Arm pain, right (Acute) Subacromial bursitis of right shoulder joint (Acute) Vaccines and biological substances adverse effect in therapeutic use (Acute) Headache (Acute) Pain of both eyes (Acute) Dry eye syndrome, bilateral (Acute) Dry mouth (Acute) Arthralgia (Acute) Positive antinuclear antibody (Acute) Shoulder pain, right (Acute) Lacunar infarction (Acute) Arthritis of carpometacarpal (CMC) joint of right thumb (Acute) Injection: 01/14/21; 08/21/20 PVC (premature ventricular contraction) (Acute) Right wrist pain (Acute) Subacute right lumbar radiculopathy (Acute) Carpal tunnel syndrome on both sides (Acute) Pre-op evaluation (Acute) Recurrent ventral hernia (Acute) Weakness (Acute) Leg paresthesia (Acute) Chronic low back pain with bilateral sciatica (Acute) Hand anomaly (Acute) SVT (supraventricular tachycardia) (Acute 12/20/15) Hyperlipidemia (Acute) Family history of breast cancer (Acute 12/08/14) Essential hypertension (Acute 12/20/15) Degenerative disk disease (Acute 02/09/15) RLQ pain and RLE radiculopathy Chronic midline low back pain with left-sided sciatica (Acute 12/16/17) Asthma (Acute) Acquired hypothyroidism (Acute 12/20/15) Medical History (Updated 04/11/24 @ 15:25 by Kamlesh Zelaya MD) Palpitations Pulmonary hypertension Personal history of COVID-19 Calf pain ERMA (obstructive sleep apnea) ? unsure on dx Vitamin D deficiency GERD (gastroesophageal reflux disease) Fibromyalgia IBS (irritable bowel syndrome) Surgical History (Updated 04/05/24 @ 08:14 by Le Zaidi) History of colonoscopy (~03/2024) History of abdominal surgery 1. abdominal wall reconstruction 2. Incarcerated Hernia S/P carpal tunnel release History of abdominal hernia multiple surgeries; 2 in 2018 [facility] Fundoplication (~2007) x2 Repair of inguinal hernia (09/14/15) Right - done at 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
[2024-04-11 14:53] VITALS: BP 170/103; PULSE 72; RESP 16; TEMP 36.8; O2SAT 98
[2024-04-11 15:14] VITALS: BP 155/103; PULSE 72; RESP 14; RESP 16; TEMP 36.8; O2SAT 98
[2024-04-11 15:37] VITALS: BP 152/108; PULSE 72; RESP 14; O2SAT 96
== END 2024-04-11 15:39 | disposition home or self-care (01) ==
LOC: ER 15:56
PROVIDERS: Emergency Provider Emergency Medicine; PCP Family Medicine
DX: S60.221A Contusion of right hand, initial encounter (principal); X58.XXXA Exposure to other specified factors, initial encounter
CPT/HCPCS: 99284; 99283

== ENCOUNTER → 2024-04-11 19:55 | Outpatient (CLI) | payer MEDICARE, OTHER, SELFPAY ==
--- NOTE | 2024-04-11 14:00 | DI.US_ITS ---
Exam(s) US UPPER EXTREMITY VENOUS RT EXAM: US UPPER EXTREMITY VENOUS RT CLINICAL HISTORY: RT UPPER EXT PAIN, M79.621, ? DVT. TECHNIQUE: Ultrasound examination of the right upper extremity venous system(s) is performed using g rayscale, color-flow, and spectral Doppler analysis. COMPARISON: No exams were available for comparison FINDINGS: Right Deep Veins:The visualized internal jugular and subclavian veins are patent. The axillary and b rachial veins are patent and display normal color flow, augmentation and compressibility. Superficial Veins:The visualized cephalic and basilic veins are patent and display normal color flow, augmentation and compressibility. The superficial veins in the forearm in the back of the hand were evaluated and are patent and show normal compression. Soft tissues: Unremarkable. IMPRESSION: No evidence of a right upper extremity deep venous thrombosis. DATA REPOSITORY:
== END ==
PROVIDERS: PCP Family Medicine; Visit Provider Physician Assistant
DX: M79.621 Pain in right upper arm (principal)
CPT/HCPCS: 99284; 93971; 99283

== ENCOUNTER 2024-04-13 12:20 | Outpatient (REF) | payer MEDICARE, OTHER, SELFPAY | END 2024-04-13 12:21 | disposition home or self-care (01) | LOC: NCHCN 12:20 | PROVIDERS: PCP Family Medicine; Visit Provider Family Medicine | DX: R35.0 Frequency of micturition (principal) | CPT/HCPCS: 87086 ==

== ENCOUNTER 2024-04-14 15:55 | Outpatient (CLI) | payer MEDICARE, OTHER, SELFPAY ==
[2024-04-14 12:26] LABS: HCT 43.4 % (36.0-46.0); HGB 13.7 g/dL (11.2-15.7); MCH 28.2 pg (27.0-33.0); MCHC 31.6 % (32.0-36.0); MCV 90 fL (80-95); MPV 9.6 fL (8.0-11.0); Platelet Count 276 10^3/uL (130-400); RBC 4.85 10^6/uL (3.93-5.22); RDW 12.6 % (11.7-14.6); RDW-SD 41.6 fL
[2024-04-14 12:45] LABS: Magnesium 1.8 mg/dL (1.8-2.4); Potassium 3.9 mmol/L (3.5-5.1)
[2024-04-14 13:01] LABS: D-Dimer 533 ng/mlFEU (<500)
== END 2024-04-14 15:56 | disposition home or self-care (01) ==
LOC: LBO 15:58
PROVIDERS: PCP Family Medicine; Visit Provider Family Medicine
DX: R53.83 Other fatigue (principal); M79.601 Pain in right arm
CPT/HCPCS: 36415; 85027; 83735; 84132; 85379

== ENCOUNTER 2024-06-27 13:13 | Outpatient (CLI) | payer MEDICARE, OTHER, SELFPAY ==
--- NOTE | 2024-06-27 | DI.RAD_ITS ---
Exam(s) XR CHEST 2V PA LATERAL EXAM: XR CHEST 2V PA LATERAL CLINICAL HISTORY: COUGH, R05.9 TECHNIQUE: 2D digital imaging was performed. Two views. COMPARISON: CT CT CHEST PE ABD PELVIS W from 05/10/2023 FINDINGS: HEART: Normal size. Aorta: Mildly tortuous. PULMONARY VASCULATURE: Normal. MEDIASTINUM: Unremarkable. LUNGS: Clear. PLEURAL SPACE: No pleural effusion or pneumothorax. BONE:Unremarkable for age. SOFT TISSUES: Unremarkable. IMPRESSION: No acute abnormality. DATA REPOSITORY: RADIATION DOSE DELIVERED:
== END 2024-06-27 13:33 ==
PROVIDERS: PCP Family Medicine; Visit Provider Nurse Practitioner Family
DX: R05.9 Cough, unspecified (principal)
CPT/HCPCS: 71046

== ENCOUNTER 2024-06-27 19:08 | Outpatient (REF) | payer MEDICARE, OTHER, SELFPAY ==
[2024-06-27 16:07] LABS: Anion Gap 8.1 mmol/L (3-11); BUN 12 mg/dL (7-18); CO2 26.9 mmol/L (21.0-32.0); CREATININE 0.8 mg/dL (0.55-1.02); Calcium 9.3 mg/dL (8.5-10.1); Chloride 104 mmol/L (98-107); Estimated GFR 78.24 (mL/min/1.73m2); Glucose 102 mg/dL (74-106); Potassium 3.9 mmol/L (3.5-5.1); Sodium 139 mmol/L (136-145)
== END 2024-06-27 19:09 | disposition home or self-care (01) ==
LOC: LBN 19:08
PROVIDERS: PCP Family Medicine; Visit Provider Nurse Practitioner Family
DX: R00.2 Palpitations (principal)
CPT/HCPCS: 80048

== ENCOUNTER → 2024-07-11 07:36 | Outpatient (BNVA) | payer MEDICARE, OTHER, SELFPAY | PROVIDERS: PCP Family Medicine; Referring Provider Family Medicine; Visit Provider Physician Assistant Surgical | DX: J45.909 Unspecified asthma, uncomplicated (principal) | CPT/HCPCS: 94640; 99214; J7620 ==

== ENCOUNTER 2024-08-12 12:57 | Outpatient (REF) | payer MEDICARE, OTHER, SELFPAY ==
[2024-08-12 15:00] LABS: Ferritin 55 ng/mL (8-252); Potassium 4.1 mmol/L (3.5-5.1); Vitamin B12 875 pg/mL (193-986)
== END 2024-08-12 12:58 | disposition home or self-care (01) ==
LOC: NCHCN 12:57
PROVIDERS: PCP Family Medicine; Visit Provider Family Medicine
DX: I10 Essential (primary) hypertension (principal)
CPT/HCPCS: 82607; 82728; 83735; 84132

== ENCOUNTER 2024-09-08 12:16 | Outpatient (REF) | payer MEDICARE, OTHER, SELFPAY ==
[2024-09-08 16:24] LABS: Abs Immature Grans 0.04 10^3/uL (0.0-0.06); Absolute Basophil Count 0.07 10^3/uL (0.0-0.2); Absolute Eosinophil Count 0.13 10^3/uL (0.0-0.7); Absolute Lymphocyte Count 1.71 10^3/uL (1.2-3.4); Absolute Monocyte Count 0.51 10^3/uL (0.1-0.8); Absolute Neutrophil Count 3.98 10^3/uL (1.2-6.7); Basophils % 1.1 %; HCT 43.5 % (36.0-46.0); HGB 14.1 g/dL (11.2-15.7); Immature Grans % 0.6 %; Lymphocytes % 26.6 %; MCH 29.2 pg (27.0-33.0); MCHC 32.4 % (32.0-36.0); MCV 90 fL (80-95); MPV 10.7 fL (8.0-11.0); Monocytes % 7.9 %; Neutrophils % 61.8 %; Platelet Count 274 10^3/uL (130-400); RBC 4.83 10^6/uL (3.93-5.22); RDW 12.6 % (11.7-14.6); RDW-SD 41.8 fL; WBC 6.44 10^3/uL (4.4-10.8)
[2024-09-08 16:49] LABS: Hemoglobin A1C 5.8 % (<5.7)
[2024-09-08 16:58] LABS: TSH 0.92 uIU/mL (0.36-3.74)
[2024-09-08 17:08] LABS: T4 11.2 ug/dL (4.7-13.3)
[2024-09-08 22:24] LABS: T3,Free 3.8 pg/mL (2.8-5.3)
== END 2024-09-08 12:17 | disposition home or self-care (01) ==
LOC: NCHCN 12:16
PROVIDERS: PCP Family Medicine; Visit Provider Family Medicine
DX: R53.83 Other fatigue (principal)
CPT/HCPCS: 83036; 84436; 84443; 84481; 85025; 87070; 87205

== ENCOUNTER → 2024-10-10 08:08 | Outpatient (BNVA) | payer MEDICARE, OTHER, SELFPAY | PROVIDERS: PCP Family Medicine; Referring Provider Family Medicine; Visit Provider Physician Assistant Surgical | DX: J45.909 Unspecified asthma, uncomplicated (principal) | CPT/HCPCS: 99214 ==

== ENCOUNTER 2024-11-03 00:11 | Outpatient (CLI) | payer MEDICARE, OTHER, SELFPAY ==
--- NOTE | 2024-11-03 | DI.US_ITS ---
Exam(s) US THYROID EXAM: US THYROID CLINICAL HISTORY: THYROID DISORDER SCREENING,Z13.29,HETEROGENEITY OF THYROID ON CT 2024. TECHNIQUE: Ultrasound thyroid performed using standard protocol. COMPARISON: US US THYROID from 05/28/[address] ANGIO CHEST from 10/19/2024 FINDINGS: ISTHMUS: 3 mm RIGHT LOBE: Size: 5.3 x 2.3 x 2.0 cm Echogenicity: Normal. Vascularity: Normal. Nodules: None. Bot 3 millimeter colloid cyst mid pole. LEFT LOBE: Size: 4.4 x 2.2 x 1.9 cm Echogenicity: Normal. Vascularity: Normal. Nodules: None. 3 millimeter colloid cyst mid pole. OTHER FINDINGS: None. IMPRESSION: Small bilateral colloid cysts, not significantly changed from prior. No suspicious nodules. DATA REPOSITORY:
== END 2024-11-03 00:31 ==
LOC: DI 00:11
PROVIDERS: PCP Family Medicine; Visit Provider Family Medicine
DX: E04.1 Nontoxic single thyroid nodule (principal)
CPT/HCPCS: 76536

== ENCOUNTER 2024-11-04 13:44 | Outpatient (REF) | payer MEDICARE, OTHER, SELFPAY ==
[2024-11-04 15:16] LABS: Anion Gap 7.1 mmol/L (3-11); BUN 15 mg/dL (7-18); C-Reactive Protein < 0.50 mg/dL (<or=0.5); CO2 30.9 mmol/L (21.0-32.0); CREATININE 0.8 mg/dL (0.55-1.02); Calcium 9.3 mg/dL (8.5-10.1); Chloride 107 mmol/L (98-107); Estimated GFR 78.24 (mL/min/1.73m2); Glucose 114 mg/dL (74-106); Potassium 3.9 mmol/L (3.5-5.1); Sodium 145 mmol/L (136-145)
[2024-11-04 16:40] LABS: Calculated LDL 119 mg/dL (<100); Cholesterol 199 mg/dL (<200); HDL Cholesterol 61 mg/dL (40-60); Triglyceride 96 mg/dL (<150)
[2024-11-04 22:39] LABS: T3,Free 3.1 pg/mL (2.8-5.3)
== END 2024-11-04 13:45 | disposition home or self-care (01) ==
LOC: NCHCN 13:44
PROVIDERS: PCP Family Medicine; Visit Provider Family Medicine
DX: E78.5 Hyperlipidemia, unspecified (principal); R53.83 Other fatigue; R25.1 Tremor, unspecified
CPT/HCPCS: 80048; 80061; 82533; 83735; 84481; 86140

== ENCOUNTER → 2024-11-09 09:00 | Outpatient (BNVA) | payer MEDICARE, OTHER, SELFPAY | PROVIDERS: PCP Family Medicine; Referring Provider Family Medicine; Visit Provider Registered Nurse | DX: R00.2 Palpitations (principal); R07.89 Other chest pain; I10 Essential (primary) hypertension | CPT/HCPCS: 99215 ==

== ENCOUNTER 2024-11-11 00:52 | Outpatient (CLI) | payer MEDICARE, OTHER, SELFPAY ==
--- NOTE | 2024-11-11 14:30 | DI.US_ITS ---
APPROVED REPORT EXAM: Comprehensive 2D, Doppler, and color-flow Echocardiogram Patient Location: Out-Patient Frame Carver Spindle: Tapan Rosales RDCS (AE) Indications: Dyspnea, palpitations Other Information Study Quality: Fair Conclusion Normal left ventricular wall thickness and chamber size. Ejection fraction is 60%. Wall motion is n ormal Normal right ventricular size and function Both atria are normal in size There is no structural valvular abnormalities Estimated right ventricular systolic pressure is 36 mmHg Ascending aorta measures 3.59 cm Wall motion Left Ventricle The left ventricle is normal size. The left ventricular systolic function is normal. The left ventric ular ejection fraction is within the normal range. There is normal left ventricular wall thickness. T here is normal LV segmental wall motion. There is no ventricular septal defect visualized. LVEF is 60 %. Right Ventricle The right ventricle is normal size. The right ventricular systolic function is normal. Atria The left atrium size is normal. The right atrium size is normal. The interatrial septum is intact wit h no evidence for an atrial septal defect. Aortic Valve The aortic valve is normal in structure. Aortic valve is trileaflet. There is no aortic valvular sten osis. No aortic regurgitation is present. Mitral Valve The mitral valve is normal in structure. No evidence of mitral valve stenosis. Trace to mild mitral r egurgitation. Tricuspid Valve The tricuspid valve is normal in structure. There is no tricuspid valve stenosis. Mild tricuspid regu rgitation. The RVSP is 36.0 mmHg. Pulmonic Valve The pulmonary valve is normal in structure. There is no pulmonic valvular stenosis. There is no pulmo sergio valvular regurgitation. Great Vessels The aortic root is normal in size. The ascending aorta is mildly dilated. Aortic arch is normal in ca liber. IVC is normal in size and collapses >50% with inspiration. Pericardium There is no pericardial effusion. 2D Dimensions IVSD d PLAX 1.00 cm F: 0.6-1.0 Ao Root d 3.36 cm F: 2.7 - 3.3 LVPW d PLAX 1.01 cm F: 0.6 - 1.0 Ao Asc Diam d 3.59 cm F: 2.3 - 3.1 LVID d PLAX 4.84 cm F: 3.8 - 5.2 LVDs 3.29 cm F: 2.2 - 3.5 LV EF Teichholz 60.0 % FS 32.02 % LV EDV (Teich) 109.7 mL LV ESV (Teich) 43.8 mL Stroke Vol Index (Teich) 30.77 M-Mode TAPSE 3.37 cm (M/F) >1.7 Auto EF LV EDV A4C 107.7 mL LV EDV A2C 91.4 mL LV EDV BP 99.9 mL LV ESV A4C 43.4 mL LV ESV A2C 36.6 mL LV ESV BP 39.5 mL LVEF(%) A4C 59.7 % LVEF(%) A2C 60.0 % LVEF(%) BP 60.4 % LV SV A4C 64.3 ml LV SV A2C 54.8 ml LV SV BP 60.4 ml LV CO A4C 2.9 L/min LV CO A2C 3.1 L/min LV CO BP 3.0 L/min HR A4C 45.29 BPM HR A2C 56.96 BPM LV EDV Index (BP) LA Volume LA Length A4C 4.9 cm LA Length A2C 5.2 cm LA Area A4C s 12.31 cm2 LA Area A2C s 13.87 cm2 LA Vol A4C A-L 26.47 mL LA Vol A2C A-L 31.36 mL LA Vol Biplane A-L 29.8 mL LA Vol/BSA A4C A-L LA Vol/BSA A2C A-L LA Vol/BSA BP A-L 13.9 mL/m2 LA Vol A4C MOD 25.8 mL LA Vol A2C MOD 29.7 mL LA Vol BP MOD 28.5 mL RA Volume RA Area A4C 14.5 cm2 RA ESV A4C (A-L) 38.3mL RA Vol/BSA A4C A-L RA Length A4C 4.6 cm RA ESV A4C (MOD) 37.3mL LV Diastology MV E' medial 0.088 (>0.07 m/s) MV E Vmax 0.90 (0.4-1.3 m/s) MV E/E' MED 10.14 (<14) MV A Vmax 1.05 (0.4-1.3 m/s) MV E' lateral 0.100 (>0.1 m/s) E/A Ratio 0.9 MV E/E' LAT 8.96 (<14) MV E' Average 0.094 m/s MV E/E'(average) 9.51 Aortic Valve AoV Vmax 1.50 m/s LVOT Vmax 1.16 m/s AoV Peak Grad 9.0 mmHg LVOT Peak Grad 5.4 mmHg AoV Area (Vmax) 2.46 cm2 LVOT VTI 0.249 m AoV VTI 0.388 m LVOT Mean Grad 3.0 mmHg AoV Mean Kiko. 1.07 m/s LVOT SV 79.00 mL AoV Mean Grad 5.1 mmHg LVOT Diam s 2.00 cm AoV Area (VTI) 2.04 cm2 AV Regurg Peak Gr. 8.97 mmHg Velocity Ratio 0.77 Mitral Valve MV DT 316 (160-240 msec) MV Vmax TIPS 1.04 m/s MV Mean Grad 1.6 (<2mmHg) MV VTI 0.433 m Pulmonary Valve PV Vmax 0.79 (0.5-1.5 m/s) RVOT Vmax 0.61 m/s PV Peak Grad 2.5 mmHg RVOT Peak Gr. 1.5 mmHg PV Mean Kiko 0.59 m/s RVOT VTI 0.158 m PV Mean Grad 1.5 mmHg RVOT Mean Gr. 0.9 mmHg Tricuspid Valve RA Pressure 3.00 mmHg TR Vmax 2.87 m/s TR Peak Grad 32.9 mmHg RVSP (TR) 36.0 mmHg
== END 2024-11-11 01:12 ==
LOC: DI 00:52
PROVIDERS: PCP Family Medicine; Visit Provider Internal Medicine Cardiovascular Disease
DX: R00.2 Palpitations (principal); R06.00 Dyspnea, unspecified
CPT/HCPCS: 93227; 93306; 93225

== ENCOUNTER 2024-11-11 11:28 | Outpatient (REF) | payer MEDICARE, OTHER, SELFPAY | END 2024-11-11 11:29 | disposition home or self-care (01) | LOC: NCHCN 11:28 | PROVIDERS: PCP Family Medicine; Visit Provider Family Medicine | DX: R25.1 Tremor, unspecified (principal); R06.00 Dyspnea, unspecified; R00.2 Palpitations | CPT/HCPCS: 82533 ==

== ENCOUNTER 2024-11-11 13:52 | Outpatient (RCR) | payer MEDICARE, OTHER, SELFPAY ==
--- NOTE | 2024-11-17 08:25 | W.HOLTRPT ---
Date of service: 11/17/24 Time of Service: 08:25 Holter Monitor Report Referring Provider:: Lidia Whelan Indications:: Palpitations Holter Monitor Note: This is a 48-hour Holter monitor. Rhythm throughout was sinus with an average heart rate of 67. Minimum was 44, maximum 119 There were rare isolated ventricular ectopic beats There are moderately frequent atrial premature beats. Self-limited atrial runs/runs of premature atrial contractions occurred. The longest of these was 16 beats in duration There was no atrial fibrillation, no high-grade AV block, no pauses greater than 3 seconds Symptoms were reported which did not appear to correlate directly with any dysrhythmia
== END 2024-11-18 23:59 | disposition home or self-care (01) ==
LOC: CARDOPNVT 13:52
PROVIDERS: PCP Family Medicine; Visit Provider Internal Medicine Cardiovascular Disease
DX: R00.2 Palpitations (principal); I49.1 Atrial premature depolarization
CPT/HCPCS: 93227; 93225; 93226

== ENCOUNTER 2024-11-16 10:36 | Outpatient (CLI) | payer MEDICARE, OTHER, SELFPAY ==
[2024-11-18 11:15] LABS: Adrenocorticotropic Hormone, P 25 pg/mL
[2024-11-21 16:39] LABS: Dehydroepiandrosterone (DHEA) 4.4 ng/mL (<5.0)
== END 2024-11-16 10:37 | disposition home or self-care (01) ==
LOC: LBO 10:37
PROVIDERS: PCP Family Medicine; Visit Provider Family Medicine
DX: R25.1 Tremor, unspecified (principal)
CPT/HCPCS: 36415; 82024; 82626

== ENCOUNTER 2024-11-16 23:30 | Outpatient (REF) | payer MEDICARE, OTHER, SELFPAY ==
[2024-11-22 01:49] LABS: Midnight Cortisol <50 ng/dL (<100)
== END 2024-11-16 23:31 | disposition home or self-care (01) ==
LOC: NCHCN 23:30
PROVIDERS: PCP Family Medicine; Visit Provider Family Medicine
DX: R25.1 Tremor, unspecified (principal)
CPT/HCPCS: 82530

== ENCOUNTER 2024-11-18 12:00 | Outpatient (REF) | payer MEDICARE, OTHER, SELFPAY ==
[2024-11-23 13:13] LABS: Urine Volume 2300 mL
[2024-11-25 18:28] LABS: Metanephrines, U 37 mcg/24 h; Normetanephrine, U 299 mcg/24 h; Total Metanephrines, U 336 mcg/24 h; Urine Volume 2300 mL
== END 2024-11-18 12:01 | disposition home or self-care (01) ==
LOC: NCHCN 12:00
PROVIDERS: PCP Family Medicine; Visit Provider Family Medicine
DX: R25.1 Tremor, unspecified (principal)
CPT/HCPCS: 81050; 82384; 83835

== ENCOUNTER → 2024-12-14 08:57 | Outpatient (BNVA) | payer MEDICARE, OTHER, SELFPAY | PROVIDERS: PCP Family Medicine; Visit Provider Registered Nurse | DX: R07.89 Other chest pain (principal); I10 Essential (primary) hypertension; I49.1 Atrial premature depolarization | CPT/HCPCS: 99215 ==

== ENCOUNTER 2024-12-26 11:40 | Outpatient (CLI) | payer MEDICARE, OTHER, SELFPAY ==
[2024-12-26 10:05] LABS: Anion Gap 6.1 mmol/L (3-11); BUN 17 mg/dL (7-18); CO2 34.9 mmol/L (21.0-32.0); CREATININE 0.9 mg/dL (0.55-1.02); Calcium 9.5 mg/dL (8.5-10.1); Chloride 103 mmol/L (98-107); Estimated GFR 67.92 (mL/min/1.73m2); Glucose 125 mg/dL (74-106); Potassium 3.4 mmol/L (3.5-5.1); Sodium 144 mmol/L (136-145)
== END 2024-12-26 11:41 | disposition home or self-care (01) ==
LOC: LBO 11:41
PROVIDERS: PCP Family Medicine; Visit Provider Registered Nurse
DX: I10 Essential (primary) hypertension (principal); R07.9 Chest pain, unspecified; I49.1 Atrial premature depolarization; R07.89 Other chest pain
CPT/HCPCS: 36415; 80048

== ENCOUNTER 2024-12-26 14:57 | Emergency (ER) | payer MEDICARE, OTHER, SELFPAY ==
[2024-12-26] VITALS (14 sets, daily range): BP systolic 126–172; BP diastolic 74–99; PULSE 65–88; RESP 13–26; TEMP 36.9; O2SAT 92–97
--- NOTE | 2024-12-26 14:45 | RT.EKG_ITS ---
APPROVED REPORT Exam: Resting ECG Reason for Exam: chest pain Patient Location: E HR:73 bpm ECG Measurements Heart Rate 73 AXIS PA 155 P 54 QRSd 84 QRS 49 QT 408 T 39 QTc 438 Conclusion Sinus rhythm 73 normal axis no stemi
--- NOTE | 2024-12-26 15:30 | DI.RAD_ITS ---
Exam(s) XR PORTABLE CHEST AP EXAM: XR PORTABLE CHEST AP CLINICAL HISTORY: Chest pain. TECHNIQUE: 2D digital imaging was performed. COMPARISON: CR XR CHEST SINGLE VIEW from 10/19/2024 FINDINGS: Single AP portable view. Heart size is upper normal. The mediastinum is not widened. Lungs are clear. No infiltrates nor obvious pleural effusions. IMPRESSION: No acute pulmonary findings on this single AP portable view of the chest. DATA REPOSITORY: RADIATION DOSE DELIVERED:
[2024-12-26 15:50] LABS: Abs Immature Grans 0.04 10^3/uL (0.0-0.06); Absolute Basophil Count 0.08 10^3/uL (0.0-0.2); Absolute Eosinophil Count 0.07 10^3/uL (0.0-0.7); Absolute Lymphocyte Count 1.98 10^3/uL (1.2-3.4); Absolute Neutrophil Count 7.09 10^3/uL (1.2-6.7); Basophils % 0.8 %; Eosinophils % 0.7 %; HCT 45.6 % (36.0-46.0); Immature Grans % 0.4 %; Lymphocytes % 19.9 %; MCH 29.1 pg (27.0-33.0); MCHC 32.9 % (32.0-36.0); MCV 89 fL (80-95); MPV 9.7 fL (8.0-11.0); Neutrophils % 71.2 %; Platelet Count 289 10^3/uL (130-400); RBC 5.15 10^6/uL (3.93-5.22); RDW 12.4 % (11.7-14.6); RDW-SD 40.7 fL; WBC 9.96 10^3/uL (4.4-10.8)
[2024-12-26] MEDS: Aspirin 81 MG CHEW 324 MG CH (15:58)
[2024-12-26] MEDS: Albuterol/Ipratropium 3 ML UPD VIAL UPD (15:59)
[2024-12-26 16:11] LABS: ALT 31 U/L (14-59); AST 17 U/L (15-37); Albumin 3.9 g/dL (3.4-5.0); Alkaline Phosphatase 77 U/L (46-116); BUN 16 mg/dL (7-18); Bilirubin, Total 0.6 mg/dL (0.2-1.0); CREATININE 0.8 mg/dL (0.55-1.02); Calcium 9.5 mg/dL (8.5-10.1); Chloride 103 mmol/L (98-107); Estimated GFR 78.24 (mL/min/1.73m2); Glucose 105 mg/dL (74-106); Potassium 3.5 mmol/L (3.5-5.1); Sodium 142 mmol/L (136-145); Total Protein 7.7 g/dL (6.4-8.2); Troponin I 46 ng/L (<or=51)
[2024-12-26 16:42] LABS: NT-proBNP 117 pg/mL (<300)
[2024-12-26 17:04] LABS: Troponin I 46 ng/L (<or=51)
--- NOTE | 2024-12-26 20:03 | ED.GENADUL_ITS ---
Discharge Plan Disposition Patient Disposition: Home Condition: Stable Discharge Details Clinical Impression: SOB (shortness of breath), Asthma, Other chest pain Primary Care Provider: Lidia Whelan V ED Provider: Chayito Gibson Home Meds and New Rx's Prescriptions: Changed levalbuterol tartrate [Xopenex HFA] 45 mcg/actuation HFA aerosol inhaler 2 inh inhalation Q4H PRN (Reason: shortness of breath or wheezing) Qty: 15 6RF No Action potassium chloride [K-Tab] 20 mEq tablet extended release 40 meq PO DAILY magnesium gluconate 27 mg magnesium (500 mg) tablet 27 mg PO DAILY ferrous sulfate 325 mg (65 mg iron) tablet 325 mg PO DAILY fluticasone propion-salmeterol [Advair HFA] 115-21 mcg/actuation HFA aerosol inhaler 2 puff inhalation BID Qty: 12 12RF acetaminophen 500 mg capsule 500 mg PO Q6H PRN ascorbic acid (vitamin C) 500 mg capsule 1,000 mg PO DAILY hydrocodone-acetaminophen 5-325 mg tablet 1 tab PO Q8H PRN hydrochlorothiazide 25 mg tablet 25 mg PO DAILY Qty: 90 3RF diltiazem HCl 60 mg capsule,extended release 12 hr 60 mg PO BID Qty: 90 3RF epinephrine 0.3 MG/0.3 ML auto-injector 0.3 mg IM PRN melatonin 5 MG tablet 5 mg PO HS estradiol [Vagifem] 10 mcg tablet 10 mcg vaginal .Twice weekly 360 Days Qty: 30 3RF cholecalciferol (vitamin D3) 50 mcg (2,000 unit) capsule 4,000 unit PO DAILY Discharge Instructions Instructions: Asthma in adults Additional Instructions: Please use your inhaler or your nebulizer treatment every 4 hours for the next 2 to 3 days. This will help reduce the inflammation and tightness in your chest. Please follow-up with your primary care doctor for reevaluation of ongoing symptoms. Discharge Data Discharge Date/Time-TO BE ENTERED AT DEPARTURE: 12/26/24 18:06 HPI General Date/Time Provider Initiated Documentation: 12/26/24 15:39 . Limitations to Documentation: no limitations . Information obtained by: patient . HPI Narrative: 74-year-old female with past medical history of asthma, PACs, SVT, hypertension presents for evaluation of chest tightness and shortness of breath. She reports that her asthma has been fairly poorly controlled over this winter season. Particularly over the last 2 to 3 days she has noted some shortness of breath. She has not really been able to cough. No fever. She reports some chest tightness in the center of her chest. This does not radiate. She has been using her Advair inhaler scheduled, and occasionally using a Xopenex, maybe 2-3 times a day for the last 2 days. Related Data Home Medications ?Medication ?Instructions ?Recorded ?Confirmed epinephrine 0.3 mg/0.3 mL 0.3 mg IM PRN 12/06/13 12/26/24 injection, auto-injector melatonin 5 mg tablet 5 mg PO HS 04/05/18 12/26/24 ascorbic acid (vitamin C) 500 mg 1,000 mg PO DAILY 11/04/22 12/26/24 capsule hydrocodone 5 mg-acetaminophen 325 1 tab PO Q8H PRN 11/06/22 12/26/24 mg tablet potassium chloride 20 mEq 40 meq PO DAILY 07/14/23 12/26/24 tablet,extended release (K-Tab) estradiol 10 mcg vaginal tablet 10 mcg vaginal .Twice weekly 12 12/01/23 12/26/24 (Vagifem) months #30 tabs cholecalciferol (vitamin D3) 50 4,000 unit PO DAILY 03/17/24 12/26/24 mcg (2,000 unit) capsule ferrous sulfate 325 mg (65 mg 325 mg PO DAILY 07/11/24 12/26/24 iron) tablet magnesium gluconate 27 mg 27 mg PO DAILY 07/11/24 12/26/24 magnesium (500 mg) tablet fluticasone propionate 115 2 puff inhalation BID #12 grams 10/10/24 12/26/24 mcg-salmeterol 21 mcg/actuation HFA inhaler (Advair HFA) acetaminophen 500 mg capsule 500 mg PO Q6H PRN 11/09/24 12/26/24 diltiazem HCl 60 mg 60 mg PO BID #90 caps 12/26/24 12/26/24 capsule,extended release 12 hr hydrochlorothiazide 25 mg tablet 25 mg PO DAILY #90 tabs 12/26/24 12/26/24 levalbuterol tartrate 45 2 inh inhalation Q4H PRN shortness 12/26/24 mcg/actuation aerosol inhaler of breath or wheezing #15 grams (Xopenex HFA) Previous Rx's ?Medication ?Instructions ?Recorded estradiol 10 mcg vaginal tablet 10 mcg vaginal .Twice weekly 12 12/01/23 (Vagifem) months #30 tabs fluticasone propionate 115 2 puff inhalation BID #12 grams 10/10/24 mcg-salmeterol 21 mcg/actuation HFA inhaler (Advair HFA) diltiazem HCl 60 mg 60 mg PO BID #90 caps 12/26/24 capsule,extended release 12 hr hydrochlorothiazide 25 mg tablet 25 mg PO DAILY #90 tabs 12/26/24 levalbuterol tartrate 45 2 inh inhalation Q4H PRN shortness 12/26/24 mcg/actuation aerosol inhaler of breath or wheezing #15 grams (Xopenex HFA) Allergies Allergy/AdvReac Type Severity Reaction Status Date / Time sulfamethoxazole (From Allergy Severe rash Verified 12/26/24 15:11 Bactrim) trimethoprim (From Bactrim) Allergy Severe Skin Rash Verified 12/26/24 15:11 venom-honey bee Allergy Severe Anaphylaxis Verified 12/26/24 15:11 adhesive Allergy Intermediate Skin Rash Verified 12/26/24 15:11 petrolatum,white (From Allergy Intermediate Rash Verified 12/26/24 15:11 Petroleum Jelly) prednisone Allergy Intermediate Major Verified 12/26/24 15:11 anxiety and agitation sertraline HCl (From Zoloft) Allergy Intermediate major Verified 12/26/24 15:11 anxiety and agitation Sulfa (Sulfonamide Allergy Intermediate Hives Verified 12/26/24 15:11 Antibiotics) latex Allergy Mild Skin Rash Verified 12/26/24 15:11 amoxicillin Allergy Skin Rash Verified 12/26/24 15:11 ciprofloxacin (From Cipro) Allergy Skin Rash Verified 12/26/24 15:11 house dust Allergy Other (See Verified 12/26/24 15:11 Comment) NSAIDS (Non-Steroidal Allergy Other (See Verified 12/26/24 15:11 Anti-Inflamma Comment) ibuprofen AdvReac Intermediate Nausea Verified 12/26/24 15:11 scented chemicals AdvReac Intermediate SOB Uncoded 12/26/24 15:11 pollen AdvReac Other (See Uncoded 12/26/24 15:11 Comment) General Stated Complaint: Chest Pain MARC: 3 Exam Narrative Exam Narrative: Review of Systems: All systems reviewed & are unremarkable except as noted in HPI and below Well-developed, no acute distress NCAT RRR no murmur Unlabored respiratory effort, no hypoxia, prolonged expiratory phase with wheezing Nondistended abdomen Extremities w/o edema no focal neurologic deficits Appropriate mood and affect Course Vital Signs Vital signs: Vital Signs Temperature 36.9 C 12/26/24 15:09 Pulse 79 12/26/24 15:09 Respiratory Rate 15 12/26/24 15:09 Blood Pressure 157/75 H 12/26/24 15:09 Pulse Oximetry 97 12/26/24 15:09 Temperature 36.9 C 12/26/24 15:09 Pulse 74 12/26/24 17:16 Pulse 74 12/26/24 17:16 Respiratory Rate 13 12/26/24 17:16 Respiratory Effort Short of Breath 12/26/24 15:44 Respiratory Depth Normal 12/26/24 15:44 Respiratory Pattern Normal 12/26/24 15:44 Blood Pressure 172/99 H 12/26/24 17:16 Blood Pressure Mean 113 12/26/24 17:16 Blood Pressure Position Sitting 12/26/24 15:09 Pulse Oximetry 95 12/26/24 17:16 Oxygen Delivery Method Room Air 12/26/24 15:09 Oxygen Flow Rate 0 12/26/24 15:09 Lab/Test Results Lab/Test Results: Laboratory Tests Range/Units 12/26/24 12/26/24 12/26/24 15:39 16:40 18:40 WBC (4.4-10.8) 10^3/uL 9.96 RBC (3.93-5.22) 10^6/uL 5.15 Hgb (11.2-15.7) g/dL 15.0 Hct (36.0-46.0) % 45.6 MCV (80-95) fL 89 MCH (27.0-33.0) pg 29.1 MCHC (32.0-36.0) % 32.9 RDW (11.7-14.6) % 12.4 Plt Count (130-400) 10^3/uL 289 MPV (8.0-11.0) fL 9.7 Immature Gran % % 0.4 Neutrophils % % 71.2 Lymphocytes % % 19.9 Monocytes % % 7.0 Eosinophils % % 0.7 Basophils % % 0.8 Nucleated RBC % (0.0-0.3) % 0.0 Absolute Neutrophils (1.2-6.7) 10^3/uL 7.09 H Absolute Lymphocytes (1.2-3.4) 10^3/uL 1.98 Absolute Monocytes (0.1-0.8) 10^3/uL 0.70 Absolute Eosinophils (0.0-0.7) 10^3/uL 0.07 Absolute Basophils (0.0-0.2) 10^3/uL 0.08 Sodium (136-145) mmol/L 142 Potassium (3.5-5.1) mmol/L 3.5 Chloride (98-107) mmol/L 103 Carbon Dioxide (21.0-32.0) mmol/L 31.0 Anion Gap (3-11) mmol/L 8.0 BUN (7-18) mg/dL 16 Creatinine (0.55-1.02) mg/dL 0.8 Est GFR (CKD-EPI 2020) (mL/min/1.73m2) 78.24 Glucose (74-106) mg/dL 105 Calcium (8.5-10.1) mg/dL 9.5 Total Bilirubin (0.2-1.0) mg/dL 0.6 AST (15-37) U/L 17 ALT (14-59) U/L 31 Alkaline Phosphatase (46-116) U/L 77 Troponin I (<or=51) ng/L 46 46 Cancelled NT-Pro-B Natriuret Pep (<300) pg/mL 117 Total Protein (6.4-8.2) g/dL 7.7 Albumin (3.4-5.0) g/dL 3.9 Medical Decision Making Emergent evaluation of shortness of breath and chest tightness. Initial differential includes asthma exacerbation, pneumonia, viral illness, less likely ACS. Her EKG does not demonstrate acute ischemic changes. Her blood pressure is slightly elevated but not significantly. Of low suspicion for hypertensive emergency. Blood work was obtained, no leukocytosis or anemia. Electrolytes without derangement. Serial troponins are flat. No elevation in BNP to indicate CHF. Chest x-ray obtained, no lobar consolidation or cardiomegaly. No signs of pulmonary edema. Patient refused steroids, but did feel better after her breathing treatment and chest tightness resolved. I have refilled her inhaler and recommend that she do breathing treatment every 4 hours for the next 2 to 3 days to try and open her lungs up. I recommended steroids, but she does not like taking them. Recommend close follow-up with her PCP as she may need pulmonary evaluation given her poorly controlled asthma. Quality:SDOH Health Related Social Needs: No Data to Display PFSH All Active Problems (Updated 12/26/24 @ 17:55 by Chayito Gibson MD) SOB (shortness of breath) (Acute) PAC (premature atrial contraction) (Acute) Encounter for screening colonoscopy (Acute) Tick bite (Acute) Dyspnea on exertion (Acute) Polyarthritis (Acute) Hypertensive disorder (Chronic) Allergic rhinitis (Acute) Paroxysmal supraventricular tachycardia (Acute) Heart murmur (Acute) Iron deficiency anemia due to dietary causes (Acute) Fatigue (Acute) Ataxia (Acute) Sense of smell impaired (Acute) Chest tightness (Acute) Visual changes (Acute) Lacunar infarction (Acute) UTI (urinary tract infection) (Acute) Hematuria (Acute) Hypokalemia (Acute) Vaginal irritation (Acute) Atelectasis (Acute) Basilar lung Urticaria (Acute) Erythematous rash (Acute) Weight gain (Acute) Dysphagia (Acute) Thyromegaly (Acute) Lymphadenopathy (Acute) Atrophic vulvovaginitis (Acute) Dysuria (Acute) Yeast Dermatitis (Acute) Recurrent hernia (Acute) Well woman exam with routine gynecological exam (Acute) Atrophic vaginitis (Acute) Vulvar irritation (Acute) Other chest pain (Acute) Shoulder injury related to vaccine administration (SIRVA) (Acute) Bursitis of right shoulder (Acute) Back pain, chronic (Acute) Obesity (Chronic) Rotator cuff syndrome of right shoulder (Acute) Anxiety and depression (Chronic) Lumbar radiculopathy (Acute) Dyspnea (Acute) Peripheral neuropathy (Acute) Restless leg syndrome (Acute) Vitamin B12 deficiency (Acute) Shingles (Acute) Scapulalgia (Acute) Vertigo (Acute) Arm pain, right (Acute) Subacromial bursitis of right shoulder joint (Acute) Vaccines and biological substances adverse effect in therapeutic use (Acute) Headache (Acute) Pain of both eyes (Acute) Dry eye syndrome, bilateral (Acute) Dry mouth (Acute) Arthralgia (Acute) Positive antinuclear antibody (Acute) Shoulder pain, right (Acute) Lacunar infarction (Acute) Arthritis of carpometacarpal (CMC) joint of right thumb (Acute) Injection: 01/14/21; 08/21/20 PVC (premature ventricular contraction) (Acute) Right wrist pain (Acute) Subacute right lumbar radiculopathy (Acute) Carpal tunnel syndrome on both sides (Acute) Pre-op evaluation (Acute) Recurrent ventral hernia (Acute) Weakness (Acute) Leg paresthesia (Acute) Chronic low back pain with bilateral sciatica (Acute) Hand anomaly (Acute) SVT (supraventricular tachycardia) (Acute 12/20/15) Hyperlipidemia (Acute) Family history of breast cancer (Acute 12/08/14) Essential hypertension (Acute 12/20/15) Degenerative disk disease (Acute 02/09/15) RLQ pain and RLE radiculopathy Chronic midline low back pain with left-sided sciatica (Acute 12/16/17) Asthma (Acute) Acquired hypothyroidism (Acute 12/20/15) Medical History (Updated 12/26/24 @ 17:55 by Chayito Gibson MD) Palpitations Pulmonary hypertension Personal history of COVID-19 Calf pain ERMA (obstructive sleep apnea) ? unsure on dx Vitamin D deficiency GERD (gastroesophageal reflux disease) Fibromyalgia IBS (irritable bowel syndrome) Surgical History (Updated 04/05/24 @ 08:14 by Le Zaidi) History of colonoscopy (~03/2024) History of abdominal surgery 1. abdominal wall reconstruction 2. Incarcerated Hernia S/P carpal tunnel release History of abdominal hernia multiple surgeries; 2 in 2018 [facility] Fundoplication (~2007) x2 Repair of inguinal hernia (09/14/15) Right - done at 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
== END 2024-12-26 18:06 | disposition home or self-care (01) ==
PROVIDERS: Emergency Provider Emergency Medicine; PCP Family Medicine
DX: R06.02 Shortness of breath (principal); J45.909 Unspecified asthma, uncomplicated; R07.89 Other chest pain; I10 Essential (primary) hypertension
CPT/HCPCS: 36415; 80048; 80053; 93005; 94640; 99285; 71045; 83880; 84484; 85025; 93010; 99284; J7620

== ENCOUNTER 2025-01-05 13:21 | Outpatient (REF) | payer MEDICARE, OTHER, SELFPAY ==
[2025-01-06 13:51] LABS: Helicobacter pylori Ag, Feces Negative (Negative)
== END 2025-01-05 13:22 | disposition home or self-care (01) ==
LOC: NCHCN 13:21
PROVIDERS: PCP Family Medicine; Visit Provider Family Medicine
DX: K21.9 Gastro-esophageal reflux disease without esophagitis (principal)
CPT/HCPCS: 87338

== ENCOUNTER 2025-01-10 15:44 | Outpatient (REF) | payer MEDICARE, OTHER, SELFPAY ==
[2025-01-10 18:59] LABS: Abs Immature Grans 0.02 10^3/uL (0.0-0.06); Absolute Basophil Count 0.06 10^3/uL (0.0-0.2); Absolute Eosinophil Count 0.06 10^3/uL (0.0-0.7); Absolute Lymphocyte Count 1.26 10^3/uL (1.2-3.4); Absolute Monocyte Count 0.65 10^3/uL (0.1-0.8); Absolute Neutrophil Count 4.34 10^3/uL (1.2-6.7); Basophils % 0.9 %; Eosinophils % 0.9 %; HCT 43.4 % (36.0-46.0); Immature Grans % 0.3 %; Lymphocytes % 19.7 %; MCH 29.2 pg (27.0-33.0); MCHC 32.3 % (32.0-36.0); MCV 91 fL (80-95); MPV 10.5 fL (8.0-11.0); Monocytes % 10.2 %; Platelet Count 283 10^3/uL (130-400); RBC 4.79 10^6/uL (3.93-5.22); RDW 12.8 % (11.7-14.6); RDW-SD 42.6 fL; WBC 6.39 10^3/uL (4.4-10.8)
[2025-01-10 19:10] LABS: Iron 41 ug/dL (50-170); Total Iron Binding Capacity 272 ug/dL (250-450); Transferrin Sat 15 % (15-50)
[2025-01-10 19:45] LABS: Anion Gap 7.3 mmol/L (3-11); BUN 8 mg/dL (7-18); CO2 30.7 mmol/L (21.0-32.0); CREATININE 0.8 mg/dL (0.55-1.02); Calcium 9.1 mg/dL (8.5-10.1); Chloride 106 mmol/L (98-107); Estimated GFR 78.24 (mL/min/1.73m2); Ferritin 89 ng/mL (8-252); Folate 9.6 ng/mL (8.6-20.0); Glucose 92 mg/dL (74-106); Sodium 144 mmol/L (136-145); Vitamin B12 645 pg/mL (193-986); Vitamin D 25 Total 38 ng/mL (30-100)
== END 2025-01-10 15:45 | disposition home or self-care (01) ==
LOC: NCHCN 15:44
PROVIDERS: PCP Family Medicine; Visit Provider Family Medicine
DX: E55.9 Vitamin D deficiency, unspecified; K21.9 Gastro-esophageal reflux disease without esophagitis
CPT/HCPCS: 80048; 82306; 82607; 82728; 82746; 83540; 83550; 85025

== ENCOUNTER 2025-03-03 13:47 | Outpatient (REF) | payer MEDICARE, OTHER, SELFPAY ==
[2025-03-03 15:47] LABS: Anion Gap 7.7 mmol/L (3-11); BUN 20 mg/dL (7-18); CO2 29.3 mmol/L (21.0-32.0); CREATININE 0.8 mg/dL (0.55-1.02); Calcium 9.4 mg/dL (8.5-10.1); Chloride 103 mmol/L (98-107); Estimated GFR 78.24 (mL/min/1.73m2); Glucose 123 mg/dL (74-106); Magnesium 1.9 mg/dL (1.8-2.4); Potassium 3.9 mmol/L (3.5-5.1); Sodium 140 mmol/L (136-145)
== END 2025-03-03 13:48 | disposition home or self-care (01) ==
LOC: NCHCN 13:47
PROVIDERS: PCP Family Medicine; Visit Provider Family Medicine
DX: I10 Essential (primary) hypertension (principal)
CPT/HCPCS: 80048; 83735

== ENCOUNTER 2025-04-07 14:40 | Outpatient (REF) | payer MEDICARE, OTHER, SELFPAY ==
[2025-04-07 15:49] LABS: Bilirubin Negative (Negative); Blood Negative (Negative); Clarity Clear (Clear); Glucose Negative (Negative); Ketones Negative (Negative); Leukocyte Esterase Negative (Negative); Nitrite Negative (Negative); Urobilinogen 0.2 mg/dL (Up to 0.2); pH 5.5 (5-8)
== END 2025-04-07 14:41 | disposition home or self-care (01) ==
LOC: NCHCN 14:40
PROVIDERS: PCP Family Medicine; Visit Provider Family Medicine
DX: R39.15 Urgency of urination (principal)
CPT/HCPCS: 81003

== ENCOUNTER 2025-04-13 15:29 | Outpatient (REF) | payer MEDICARE, OTHER, SELFPAY ==
[2025-04-13 19:20] LABS: Bilirubin Negative (Negative); Blood Negative (Negative); Clarity Clear (Clear); Glucose Negative (Negative); Ketones Negative (Negative); Leukocyte Esterase Negative (Negative); Nitrite Negative (Negative); Urobilinogen 0.2 mg/dL (Up to 0.2)
== END 2025-04-13 15:30 | disposition home or self-care (01) ==
LOC: NCHCN 15:29
PROVIDERS: PCP Family Medicine; Visit Provider Family Medicine
DX: R30.0 Dysuria (principal)
CPT/HCPCS: 81513; 87481; 87661; 81003; 87480; 87510; 87660

== ENCOUNTER 2025-05-03 15:43 | Outpatient (REF) | payer MEDICARE, OTHER, SELFPAY ==
[2025-05-03 17:21] LABS: Abs Immature Grans 0.07 10^3/uL (0.0-0.06); HCT 42.7 % (36.0-46.0); HGB 14.0 g/dL (11.2-15.7); Immature Grans % 0.9 %; MCH 29.7 pg (27.0-33.0); MCHC 32.8 % (32.0-36.0); MCV 91 fL (80-95); MPV 10.2 fL (8.0-11.0); Platelet Count 280 10^3/uL (130-400); RBC 4.71 10^6/uL (3.93-5.22); RDW 12.8 % (11.7-14.6); RDW-SD 42.3 fL; WBC 7.38 10^3/uL (4.4-10.8)
[2025-05-03 17:45] LABS: Hemoglobin A1C 5.8 % (<5.7)
[2025-05-03 17:52] LABS: ALT 31 U/L (14-59); AST 23 U/L (15-37); Albumin 3.5 g/dL (3.4-5.0); Alkaline Phosphatase 84 U/L (46-116); Anion Gap 8.4 mmol/L (3-11); BUN 15 mg/dL (7-18); Bilirubin, Total 0.4 mg/dL (0.2-1.0); CO2 29.6 mmol/L (21.0-32.0); Calcium 9.1 mg/dL (8.5-10.1); Chloride 105 mmol/L (98-107); Estimated GFR 91.83 (mL/min/1.73m2); Glucose 96 mg/dL (74-106); Potassium 4.1 mmol/L (3.5-5.1); Sodium 143 mmol/L (136-145); TSH (W/Ref FT4) 0.66 uIU/mL (0.36-3.74); Total Protein 6.9 g/dL (6.4-8.2)
== END 2025-05-03 15:44 | disposition home or self-care (01) ==
LOC: NCHCN 15:43
PROVIDERS: PCP Family Medicine; Visit Provider Family Medicine
DX: R73.03 Prediabetes (principal); R19.7 Diarrhea, unspecified
CPT/HCPCS: 80053; 83036; 84443; 85025

== ENCOUNTER → 2025-05-15 08:30 | Outpatient (BNVA) | payer MEDICARE, OTHER, SELFPAY | PROVIDERS: PCP Family Medicine; Referring Provider Family Medicine; Visit Provider Physician Assistant Surgical | DX: J45.909 Unspecified asthma, uncomplicated (principal) | CPT/HCPCS: 99214 ==

== ENCOUNTER 2025-06-15 13:01 | Outpatient (REF) | payer MEDICARE, OTHER, SELFPAY | END 2025-06-15 13:02 | disposition home or self-care (01) | LOC: NCHCN 13:01 | PROVIDERS: PCP Family Medicine; Visit Provider Family Medicine | DX: Z77.111 Contact with and (suspected) exposure to water pollution (principal) | CPT/HCPCS: 87015; 87269; 87272 ==

== ENCOUNTER 2025-07-03 10:44 | Outpatient (REF) | payer MEDICARE, OTHER, SELFPAY ==
[2025-07-04 12:38] LABS: Helicobacter pylori Ag, Feces Negative (Negative)
== END 2025-07-03 10:45 | disposition home or self-care (01) ==
LOC: NCHCN 10:44
PROVIDERS: PCP Family Medicine; Visit Provider Family Medicine
DX: R10.9 Unspecified abdominal pain (principal)
CPT/HCPCS: 87338

== ENCOUNTER 2025-07-11 16:13 | Outpatient (REF) | payer MEDICARE, OTHER, SELFPAY ==
[2025-07-11 16:22] LABS: Anion Gap 8.2 mmol/L (3-11); BUN 14 mg/dL (7-18); CO2 32.8 mmol/L (21.0-32.0); Calcium 9.6 mg/dL (8.5-10.1); Chloride 102 mmol/L (98-107); Estimated GFR 91.26 (mL/min/1.73m2); Glucose 95 mg/dL (74-106); Magnesium 1.9 mg/dL (1.8-2.4); Potassium 4.0 mmol/L (3.5-5.1); Sodium 143 mmol/L (136-145)
[2025-07-13 09:23] LABS: Lyme Ab w Rflx to Lyme Confirm Negative (Negative)
== END 2025-07-11 16:14 | disposition home or self-care (01) ==
LOC: NCHCN 16:13
PROVIDERS: PCP Family Medicine; Visit Provider Family Medicine
DX: K21.9 Gastro-esophageal reflux disease without esophagitis (principal); I10 Essential (primary) hypertension; M25.50 Pain in unspecified joint
CPT/HCPCS: 80048; 83735; 86618

== ENCOUNTER 2025-09-08 00:19 | Outpatient (CLI) | payer MEDICARE, OTHER, SELFPAY ==
[2025-09-08 13:55] LABS: Hemoglobin A1C 5.6 % (<5.7)
[2025-09-11 10:28] LABS: Adrenocorticotropic Hormone, P <5.0 pg/mL
== END 2025-09-08 00:20 | disposition home or self-care (01) ==
LOC: LBO 00:19
PROVIDERS: PCP Family Medicine; Visit Provider Psychologist Clinical
DX: R73.9 Hyperglycemia, unspecified (principal); E66.9 Obesity, unspecified
CPT/HCPCS: 36415; 80299; 82533; 82024; 83036

== ENCOUNTER 2025-09-19 10:39 | Outpatient (REF) | payer MEDICARE, OTHER, SELFPAY ==
[2025-09-19 14:58] LABS: Creatinine,Urine 42.6 mg/dL
[2025-09-21 11:06] LABS: Total Volume 2800 mL
[2025-09-21 11:14] LABS: Creatinine,24hr Ur 1.19 g/24hr (0.60-1.80)
[2025-09-23 01:21] LABS: Cortisol, U 16 mcg/24 h (3.5-45); Cortisone, U 39 mcg/24 h (17-129)
== END 2025-09-19 10:40 | disposition home or self-care (01) ==
LOC: LBN 10:39
PROVIDERS: Psychologist Clinical; PCP Family Medicine; Visit Provider Family Medicine
DX: E66.9 Obesity, unspecified (principal)
CPT/HCPCS: 82530; 83789; 81050; 82570

== ENCOUNTER 2025-10-06 13:10 | Outpatient (REF) | payer MEDICARE, OTHER, SELFPAY ==
[2025-10-13 03:45] LABS: Hydrocodone Interpretation Positive.
== END 2025-10-06 13:11 | disposition home or self-care (01) ==
LOC: NCHCN 13:10
PROVIDERS: PCP Family Medicine; Visit Provider Family Medicine
DX: Z51.81 Encounter for therapeutic drug level monitoring (principal)
CPT/HCPCS: 80361

== ENCOUNTER 2025-10-10 16:57 | Emergency (ER) | payer MEDICARE, OTHER, SELFPAY ==
--- NOTE | 2025-10-10 16:45 | RT.EKG_ITS ---
APPROVED REPORT Exam: Resting ECG Reason for Exam: palpatations Patient Location: E HR:84 bpm ECG Measurements Heart Rate 84 AXIS OH 153 P 34 QRSd 84 QRS 10 QT 377 T 49 QTc 446 Conclusion Sinus rhythm...normal P axis, V-rate 60- 99 Atrial premature complexes...SV complexes w/ short R-R intvls Low voltage, precordial leads...precordial leads <1.0mV
[2025-10-10 16:58] VITALS: BP 165/110; PULSE 63; RESP 20; TEMP 37; O2SAT 97
--- NOTE | 2025-10-10 17:15 | DI.RAD_ITS ---
Exam(s) XR CHEST 2V PA LATERAL EXAM: XR CHEST 2V PA LATERAL CLINICAL HISTORY: Chest pain TECHNIQUE: 2D digital imaging was performed of the chest. Two images were obtained. PA and lateral views were obtained. COMPARISON: CR XR CHEST 2V PA LATERAL from 06/27/[address] ANGIO CHEST from 10/19/2024 CR XR PORTABLE CHEST AP from 12/26/2024 FINDINGS: MEDIASTINUM: Normal. There again seen calcified left hilar lymph nodes. HEART: Normal. PULMONARY VASCULATURE: Normal. LUNGS: Clear. PLEURAL SPACE: No pleural effusion or pneumothorax. BONE:Within normal limits for the patient's age. OTHER FINDINGS:Normal. IMPRESSION: No acute pulmonary findings. DATA REPOSITORY: RADIATION DOSE DELIVERED:
--- NOTE | 2025-10-10 17:22 | W.ED.GENAD ---
Discharge Plan Disposition Patient Disposition: Home Condition: Stable Discharge Details Clinical Impression: Shortness of breath, Chest pain Primary Care Provider: Lidia Whelan V ED Provider: Massiel Flynn Home Meds and New Rx's Prescriptions: No Action potassium chloride [K-Tab] 20 mEq tablet extended release 40 meq PO DAILY magnesium gluconate 27 mg magnesium (500 mg) tablet 27 mg PO DAILY ferrous sulfate 325 mg (65 mg iron) tablet 325 mg PO DAILY fluticasone propion-salmeterol [Advair HFA] 115-21 mcg/actuation HFA aerosol inhaler 2 puff inhalation BID Qty: 12 12RF acetaminophen 500 mg capsule 500 mg PO Q6H PRN diltiazem HCl 60 mg capsule,extended release 12 hr 60 mg PO DAILY levalbuterol tartrate [Xopenex HFA] 45 mcg/actuation HFA aerosol inhaler 2 inh inhalation Q4H PRN (Reason: shortness of breath or wheezing) Qty: 45 4RF ascorbic acid (vitamin C) 500 mg capsule 1,000 mg PO DAILY hydrocodone-acetaminophen 5-325 mg tablet 1 tab PO Q8H PRN hydrochlorothiazide 25 mg tablet 25 mg PO DAILY Qty: 90 3RF epinephrine 0.3 MG/0.3 ML auto-injector 0.3 mg IM PRN melatonin 5 MG tablet 5 mg PO HS estradiol [Vagifem] 10 mcg tablet 10 mcg vaginal .Twice weekly 360 Days Qty: 30 3RF cholecalciferol (vitamin D3) 50 mcg (2,000 unit) capsule 4,000 unit PO DAILY montelukast 10 mg tablet 10 mg PO DAILY Discharge Instructions Instructions: Troponin Test, Chest Pain, Adult ED, Shortness of Breath, Adult ED Additional Instructions: At this time there is no elevation in the troponin level after 3 hours. I do believe it is safe for you to be discharged home. However please return to the ER for any worsening chest pain, worsening shortness of breath dizziness lightheadedness nausea or concerns. Please decrease the use of the Advair if this seems to be causing your symptoms. No evidence of pneumonia on X-ray. Follow up with primary care provider in 3-5 days. Return to ED sooner if any worsening or concerns. Thank you for allowing us to care for you today Stand Alone Forms: Portal Information Referrals: Lidia Whelan MD [Primary Care Provider, Medicine] - 5 days Discharge Data Discharge Date/Time-TO BE ENTERED AT DEPARTURE: 10/10/25 21:29 HPI General Mode of arrival: ambulatory. Date/Time Provider Initiated Documentation: 10/10/25 17:06. Limitations to Documentation: no limitations. Information obtained by: patient, RN notes reviewed and old records reviewed. HPI Narrative: 75-year-old female presents to the ER with a chief complaint of shortness of breath which has been worsening over the last week, palpitations, chest pain, fatigue and dizziness. She just recently had an appointment with her PCP who increased her Advair dose to 4 times daily from 1 times daily. She also takes Xopenex inhaler. She describes a tightness in her chest. She does have a history of PACs, hypertensive and heart murmur, iron deficiency, COPD, obesity, SVT, asthma hypothyroidism, obstructive sleep apnea pulmonary hypertension. Related Data Home Medications ?Medication ?Instructions ?Recorded ?Confirmed epinephrine 0.3 mg/0.3 mL 0.3 mg IM PRN 12/06/13 10/10/25 injection, auto-injector melatonin 5 mg tablet 5 mg PO HS 04/05/18 10/10/25 ascorbic acid (vitamin C) 500 mg 1,000 mg PO DAILY 11/04/22 10/10/25 capsule hydrocodone 5 mg-acetaminophen 325 1 tab PO Q8H PRN 11/06/22 10/10/25 mg tablet potassium chloride 20 mEq 40 meq PO DAILY 07/14/23 10/10/25 tablet,extended release (K-Tab) estradiol 10 mcg vaginal tablet 10 mcg vaginal .Twice weekly 12 12/01/23 10/10/25 (Vagifem) months #30 tabs cholecalciferol (vitamin D3) 50 4,000 unit PO DAILY 03/17/24 10/10/25 mcg (2,000 unit) capsule ferrous sulfate 325 mg (65 mg 325 mg PO DAILY 07/11/24 10/10/25 iron) tablet magnesium gluconate 27 mg 27 mg PO DAILY 07/11/24 10/10/25 magnesium (500 mg) tablet fluticasone propionate 115 2 puff inhalation BID #12 grams 10/10/24 10/10/25 mcg-salmeterol 21 mcg/actuation HFA inhaler (Advair HFA) acetaminophen 500 mg capsule 500 mg PO Q6H PRN 11/09/24 10/10/25 hydrochlorothiazide 25 mg tablet 25 mg PO DAILY #90 tabs 12/26/24 10/10/25 diltiazem HCl 60 mg 60 mg PO DAILY 05/15/25 10/10/25 capsule,extended release 12 hr levalbuterol tartrate 45 2 inh inhalation Q4H PRN shortness 05/15/25 10/10/25 mcg/actuation aerosol inhaler of breath or wheezing #45 grams (Xopenex HFA) montelukast 10 mg tablet 10 mg PO DAILY 10/10/25 10/10/25 Previous Rx's ?Medication ?Instructions ?Recorded estradiol 10 mcg vaginal tablet 10 mcg vaginal .Twice weekly 12 12/01/23 (Vagifem) months #30 tabs fluticasone propionate 115 2 puff inhalation BID #12 grams 10/10/24 mcg-salmeterol 21 mcg/actuation HFA inhaler (Advair HFA) hydrochlorothiazide 25 mg tablet 25 mg PO DAILY #90 tabs 12/26/24 levalbuterol tartrate 45 2 inh inhalation Q4H PRN shortness 05/15/25 mcg/actuation aerosol inhaler of breath or wheezing #45 grams (Xopenex HFA) Allergies Allergy/AdvReac Type Severity Reaction Status Date / Time sulfamethoxazole (From Allergy Severe rash Verified 10/10/25 17:05 Bactrim) trimethoprim (From Bactrim) Allergy Severe Skin Rash Verified 10/10/25 17:05 venom-honey bee Allergy Severe Anaphylaxis Verified 10/10/25 17:05 adhesive Allergy Intermediate Skin Rash Verified 10/10/25 17:05 petrolatum,white (From Allergy Intermediate Rash Verified 10/10/25 17:05 Petroleum Jelly) prednisone Allergy Intermediate Major Verified 10/10/25 17:05 anxiety and agitation sertraline HCl (From Zoloft) Allergy Intermediate major Verified 10/10/25 17:05 anxiety and agitation Sulfa (Sulfonamide Allergy Intermediate Hives Verified 10/10/25 17:05 Antibiotics) latex Allergy Mild Skin Rash Verified 10/10/25 17:05 amoxicillin Allergy Skin Rash Verified 10/10/25 17:05 ciprofloxacin (From Cipro) Allergy Skin Rash Verified 10/10/25 17:05 house dust Allergy Other (See Verified 10/10/25 17:05 Comment) NSAIDS (Non-Steroidal Allergy Other (See Verified 10/10/25 17:05 Anti-Inflamma Comment) ibuprofen AdvReac Intermediate Nausea Verified 10/10/25 17:05 scented chemicals AdvReac Intermediate SOB Uncoded 10/10/25 17:05 pollen AdvReac Other (See Uncoded 10/10/25 17:05 Comment) General Stated Complaint: Chest Pain MARC: 3 Review of Systems All systems reviewed & are unremarkable except as noted in HPI and below Cardiovascular Cardiovascular: Reports chest pain, Reports chest pain at rest, Denies pedal edema, Denies edema, Reports irregular heart rhythm, Reports lightheadedness and Reports dyspnea Respiratory Respiratory: Reports dyspnea Gastrointestinal Gastrointestinal: Denies abdominal pain, Denies diarrhea, Denies nausea and Denies vomiting Exam Narrative Exam Narrative: Constitutional: Alert and oriented x3. Appears stated age. Normal body habitus. Head: Normocephalic, no trauma. Eyes: Pupils PERRL, Red reflex noted, EOM's intact. Eyelids symmetrical without lesions, discharge, or swelling. ENT: Bilateral TM's WNL, External ear normal to inspection, no mastoid TTP, swelling, or erythema, Nasal turbinates WNL, no nasal discharge. Normal dentition, Posterior pharynx WNL, no exudate. Chest: RRR, Normal S1, S2, distal pulses intact. Resp: Lungs clear to auscultation bilaterally, no wheezes, rales, or rhonchi. Abdomen: Soft, non-distended, Normoactive bowel sounds all 4 quads. Musculoskeletal: Normal gait, Moves all 4 extremities without difficulty. Skin: No suspicious rashes or lesions. Capillary refill less than 2 sec. Neurologic: Cranial nerves II-XII intact. Alert and oriented x 3. Motor: No deficits noted. Sensory: Intact bilaterally all 4 extremities. Hematologic/Lymphatic: No ecchymosis, no lymphadenopathy. Course Vital Signs Vital signs: Vital Signs Temperature 37.0 C 10/10/25 16:58 Pulse 63 10/10/25 16:58 Respiratory Rate 20 10/10/25 16:58 Blood Pressure 165/110 H 10/10/25 16:58 Pulse Oximetry 97 10/10/25 16:58 Temperature 37.0 C 10/10/25 16:58 Pulse 63 10/10/25 16:58 Respiratory Rate 20 10/10/25 16:58 Blood Pressure 165/110 H 10/10/25 16:58 Blood Pressure Position Sitting 10/10/25 16:58 Pulse Oximetry 97 10/10/25 16:58 Oxygen Delivery Method Room Air 10/10/25 16:58 Oxygen Flow Rate 0 10/10/25 16:58 Medical Decision Making 75-year-old female presents to the ER with a chief complaint of shortness of breath which has been worsening over the last week, palpitations, chest pain, fatigue and dizziness. She just recently had an appointment with her PCP who increased her Advair dose to 4 times daily from 1 times daily. She also takes Xopenex inhaler. She describes a tightness in her chest. She does have a history of PACs, hypertensive and heart murmur, iron deficiency, COPD, obesity, SVT, asthma hypothyroidism, obstructive sleep apnea pulmonary hypertension. Workup ordered including EKG, serial troponins, CBC CMP VBG chest x-ray and Fluvid swab CBC is within normal limits no leukocytosis, VBG shows a pH of 7.41, bicarb is 29, base excess is 4, CMP shows sodium of 143 potassium 3.7 BUN 18 creatinine 0.76 GFR 74, initial troponin is slightly elevated at a level of 36, proBNP is 108 negative COVID flu and RSV. Will give 324 mg of chewable aspirin awaiting chest x-ray. Troponins have remained flat at 35 will discharge patient home with follow-up with PCP. This text was generated using [employer] dictation system, please disregard any oddities of phrase or misspellings. Patient ambulatory from department and hemodynamically stable throughout the remainder of her stay. Imaging Data Radiologic Study: Imaging: X-Ray Radiologist's impression: FINDINGS: MEDIASTINUM: Normal. There again seen calcified left hilar lymph nodes. HEART: Normal. PULMONARY VASCULATURE: Normal. LUNGS: Clear. PLEURAL SPACE: No pleural effusion or pneumothorax. BONE:Within normal limits for the patient's age. OTHER FINDINGS:Normal. IMPRESSION: No acute pulmonary findings. Lab Data Lab results reviewed: Yes I reviewed the patient's lab results. Labs: Laboratory Tests Range/Units 10/10/25 10/10/25 10/10/25 17:18 18:18 20:20 WBC (4.4-10.8) 10^3/uL 8.91 RBC (3.93-5.22) 10^6/uL 4.97 Hgb (11.2-15.7) g/dL 14.3 Hct (36.0-46.0) % 43.8 MCV (80-95) fL 88 MCH (27.0-33.0) pg 28.8 MCHC (32.0-36.0) % 32.6 RDW (11.7-14.6) % 12.6 Plt Count (130-400) 10^3/uL 281 MPV (8.0-11.0) fL 9.5 Immature Gran % % 0.6 Neutrophils % % 63.0 Lymphocytes % % 28.2 Monocytes % % 6.4 Eosinophils % % 1.0 Basophils % % 0.8 Nucleated RBC % (0.0-0.3) % 0.0 Absolute Neutrophils (1.2-6.7) 10^3/uL 5.62 Absolute Lymphocytes (1.2-3.4) 10^3/uL 2.51 Absolute Monocytes (0.1-0.8) 10^3/uL 0.57 Absolute Eosinophils (0.0-0.7) 10^3/uL 0.09 Absolute Basophils (0.0-0.2) 10^3/uL 0.07 VBG pH (7.31-7.41) 7.41 VBG pCO2 (41-51) mmHg 46 VBG pO2 mmHg 35 VBG HCO3 (23-28) mmol/L 29 H VBG Total CO2 (24-29) mmol/L 26 VBG O2 Saturation % 65 VBG Base Excess (-2-3) mmol/L 4 H Sodium (136-145) mmol/L 143 Potassium (3.5-5.1) mmol/L 3.7 Chloride (98-107) mmol/L 106 Carbon Dioxide (20.0-31.0) mmol/L 29.1 Anion Gap (3-11) mmol/L 7.9 BUN (9-23) mg/dL 18 Creatinine (0.55-1.02) mg/dL 0.76 Est GFR (CKD-EPI 2020) (mL/min/1.73m2) 74.51 Glucose (74-106) mg/dL 95 Calcium (8.3-10.6) mg/dL 9.3 Magnesium (1.6-2.6) mg/dL 1.9 Total Bilirubin (0.2-1.2) mg/dL 0.5 AST (<34) U/L 23 ALT (10-49) U/L 26 Alkaline Phosphatase (46-116) U/L 72 Troponin I (<35) ng/L 36 H* 35 35 NT-Pro-B Natriuret Pep (<300) pg/mL 108 Total Protein (5.7-8.2) g/dL 7.4 Albumin (3.2-5.0) g/dL 4.5 Lipase (<53) U/L 27 COVID-19 Source Nasopharynx SARS-CoV-2 (PCR) (Negative) Negative Influenza Type A (PCR) (Negative) Negative Influenza Type B (PCR) (Negative) Negative RSV (PCR) (Negative) Negative PFSH All Active Problems (Updated 10/10/25 @ 21:10 by Massiel Flynn NP) Chest pain (Acute) Shortness of breath (Acute) PAC (premature atrial contraction) (Acute) Encounter for screening colonoscopy (Acute) Tick bite (Acute) Dyspnea on exertion (Acute) Polyarthritis (Acute) Hypertensive disorder (Chronic) Allergic rhinitis (Acute) Paroxysmal supraventricular tachycardia (Acute) Heart murmur (Acute) Iron deficiency anemia due to dietary causes (Acute) Fatigue (Acute) Ataxia (Acute) Sense of smell impaired (Acute) Chest tightness (Acute) Visual changes (Acute) Lacunar infarction (Acute) UTI (urinary tract infection) (Acute) Hematuria (Acute) Hypokalemia (Acute) Vaginal irritation (Acute) Atelectasis (Acute) Basilar lung Urticaria (Acute) Erythematous rash (Acute) Weight gain (Acute) Dysphagia (Acute) Thyromegaly (Acute) Lymphadenopathy (Acute) Atrophic vulvovaginitis (Acute) Dysuria (Acute) Yeast Dermatitis (Acute) Recurrent hernia (Acute) Well woman exam with routine gynecological exam (Acute) Atrophic vaginitis (Acute) Vulvar irritation (Acute) Other chest pain (Acute) Shoulder injury related to vaccine administration (SIRVA) (Acute) Bursitis of right shoulder (Acute) Back pain, chronic (Acute) Obesity (Chronic) Rotator cuff syndrome of right shoulder (Acute) Anxiety and depression (Chronic) Lumbar radiculopathy (Acute) Dyspnea (Acute) Peripheral neuropathy (Acute) Restless leg syndrome (Acute) Vitamin B12 deficiency (Acute) Shingles (Acute) Scapulalgia (Acute) Vertigo (Acute) Arm pain, right (Acute) Subacromial bursitis of right shoulder joint (Acute) Vaccines and biological substances adverse effect in therapeutic use (Acute) Headache (Acute) Pain of both eyes (Acute) Dry eye syndrome, bilateral (Acute) Dry mouth (Acute) Arthralgia (Acute) Positive antinuclear antibody (Acute) Shoulder pain, right (Acute) Lacunar infarction (Acute) Arthritis of carpometacarpal (CMC) joint of right thumb (Acute) Injection: 01/14/21; 08/21/20 PVC (premature ventricular contraction) (Acute) Right wrist pain (Acute) Subacute right lumbar radiculopathy (Acute) Carpal tunnel syndrome on both sides (Acute) Pre-op evaluation (Acute) Recurrent ventral hernia (Acute) Weakness (Acute) Leg paresthesia (Acute) Chronic low back pain with bilateral sciatica (Acute) Hand anomaly (Acute) SVT (supraventricular tachycardia) (Acute 12/20/15) Hyperlipidemia (Acute) Family history of breast cancer (Acute 12/08/14) Essential hypertension (Acute 12/20/15) Degenerative disk disease (Acute 02/09/15) RLQ pain and RLE radiculopathy Chronic midline low back pain with left-sided sciatica (Acute 12/16/17) Asthma (Acute) Acquired hypothyroidism (Acute 12/20/15) Medical History Interstitial cystitis Palpitations Pulmonary hypertension Personal history of COVID-19 Calf pain ERMA (obstructive sleep apnea) ? unsure on dx Vitamin D deficiency GERD (gastroesophageal reflux disease) Fibromyalgia IBS (irritable bowel syndrome) Surgical History History of colonoscopy (~03/2024) History of abdominal surgery 1. abdominal wall reconstruction 2. 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
[2025-10-10 17:30] LABS: BE (Venous) 4 mmol/L (-2-3); HCO3 (Venous) 29 mmol/L (23-28); O2 Sat (Venous) 65 %; TCO2 (Venous) 26 mmol/L (24-29); pCO2 (Venous) 46 mmHg (41-51); pO2 (Venous) 35 mmHg
[2025-10-10 17:31] LABS: Abs Immature Grans 0.05 10^3/uL (0.0-0.06); HCT 43.8 % (36.0-46.0); HGB 14.3 g/dL (11.2-15.7); Immature Grans % 0.6 %; MCH 28.8 pg (27.0-33.0); MCHC 32.6 % (32.0-36.0); MCV 88 fL (80-95); MPV 9.5 fL (8.0-11.0); Platelet Count 281 10^3/uL (130-400); RBC 4.97 10^6/uL (3.93-5.22); RDW 12.6 % (11.7-14.6); RDW-SD 40.7 fL; WBC 8.91 10^3/uL (4.4-10.8)
[2025-10-10 17:47] LABS: Lipase 27 U/L (<53)
[2025-10-10 17:48] LABS: Magnesium 1.9 mg/dL (1.6-2.6)
[2025-10-10 17:49] LABS: ALT 26 U/L (10-49); AST 23 U/L (<34); Albumin 4.5 g/dL (3.2-5.0); Alkaline Phosphatase 72 U/L (46-116); Anion Gap 7.9 mmol/L (3-11); BUN 18 mg/dL (9-23); Bilirubin, Total 0.5 mg/dL (0.2-1.2); CO2 29.1 mmol/L (20.0-31.0); Calcium 9.3 mg/dL (8.3-10.6); Chloride 106 mmol/L (98-107); Glucose 95 mg/dL (74-106); Potassium 3.7 mmol/L (3.5-5.1); Sodium 143 mmol/L (136-145); Total Protein 7.4 g/dL (5.7-8.2)
[2025-10-10 18:08] LABS: Troponin I 36 ng/L (<35)
[2025-10-10 18:11] LABS: COVID-19 PCR Negative (Negative); RSV PCR Negative (Negative)
[2025-10-10] MEDS: Aspirin 81 MG CHEW 324 MG CH (18:15)
[2025-10-10 18:54] LABS: Troponin I 35 ng/L (<35)
[2025-10-10 20:24] VITALS: BP 156/93; PULSE 74; RESP 18; TEMP 36.7; O2SAT 99
[2025-10-10 21:05] LABS: Troponin I 35 ng/L (<35)
[2025-10-10 21:20] VITALS: BP 156/93; PULSE 74; RESP 18; TEMP 36.7; O2SAT 99
== END 2025-10-10 21:29 | disposition home or self-care (01) ==
PROVIDERS: Emergency Provider Registered Nurse Emergency; PCP Family Medicine
DX: R07.9 Chest pain, unspecified (principal); R06.02 Shortness of breath; R00.2 Palpitations; R53.83 Other fatigue; R42 Dizziness and giddiness
CPT/HCPCS: 99284; 99285; 36415; 80053; 82805; 83690; 87637; 93005; 71046; 83735; 83880; 84484; 85025; 93010

== ENCOUNTER → 2025-10-13 00:01 | Outpatient (CLI) | payer MEDICARE, OTHER, SELFPAY ==
--- NOTE | 2025-10-13 | DI.CT_ITS ---
Exam(s) CT CHEST PE ABD PELVIS W EXAM: CT CHEST PE ABD PELVIS W CLINICAL HISTORY: ABD DISCOMFORT, R10.9, PERS UPPER ABD PAIN. TECHNIQUE: Imaging Protocol: Axial CT angiography was performed with multi- slice acquisition and multi-planar and/or 3D reconstructions. CONTRAST MATERIAL: Intravenous: Omnipaque 350 Contrast volume:100 ml Oral: Yes. Oral contrast was also administered for bowel opacification. COMPARISON: CT CT ANGIO CHEST from 10/19/2024performed at outside institution FINDINGS: CHEST: PULMONARY ARTERIES: There are no intraluminal filling defects to suggest the presence of acute pulmonary emboli. Also no evidence of pulmonary infarction. LUNGS: Again noted is a calcified granuloma in the anterior lingular segment of the left lung. Few other smaller calcified granulomas as well as calcified lymph nodes in left hilum are again noted. There is some atelectasis again noted in the right lung. There are no pleural effusions.There is no evidence of pulmonary infarction. There are no pleural effusions. MEDIASTINUM: There is no hilar nor mediastinal adenopathy. Visualized thyroid unremarkable. CARDIAC: Heart size is normal. There is no pericardial effusion. Again noted is aberrant right subclavian artery. There is no significant shift of the interventricular septum.Caliber of the thoracic aorta is within normal limits. No evidence of aortic dissection. OSSEOUS: No fractures nor significant osseous lesions.. ABDOMEN: GI: There is no ascites. There is evidence of previous surgery at the GE junction. Stomach and duodenum are not distended the no evidence of bowel obstruction. No free air. No abscess. There is evidence of anterior abdominal wall hernia repair. There is interposition of colon between the liver and right abdominal wall, similar to previous. LIVER: There are no focal hepatic lesions nor dilatation of intrahepatic ducts. Numerous tiny calcified granulomas are noted throughout the liver. GALLBLADDER/BILIARY: The gallbladder is again noted to be surgically absent. CBD is not dilated. PANCREAS: No evidence of pancreatic mass nor dilatation of the pancreatic duct. SPLEEN: Spleen size upper normal. Splenic granulomas are also again noted. No significant splenic lesions. Splenic and portal veins are patent. ADRENALS: There are no significant adrenal masses. KIDNEYS:No cysts evident. No calculi nor hydronephrosis. No solid renal masses. ABDOMINAL AORTA: Abdominal aorta is not enlarged. LYMPH NODES: There is no retroperitoneal or para-aortic adenopathy. ABDOMINAL WALL/GI: There is evidence of previous anterior abdominal hernia measure pair. There is a lateral right abdominal wall hernia sac which contains fat but no bowel loops. No bowel obstruction. PELVIS: LYMPH NODES: There is shoddy lymph nodes in both groins. There is an additional slightly larger lymph node above the right groin measuring 1.4 cm. GI: No evidence of appendicitis.No evidence of sigmoid diverticulitis. URINARY BLADDER: No calculi nor masses evident REPRODUCTIVE: Calcified uterine fibroids are noted. No abnormal adnexal masses nor free fluid in the pelvis. OSSEOUS: No significant osseous lesions. Multilevel chronic degenerative disc disease in the lumbar spine. No fractures. IMPRESSION: 1. No evidence of acute pulmonary emboli nor pulmonary infarction. 2. Left lung calcified granulomas and calcified lymph nodes in left hilum again noted. There are no ominous pulmonary nodules, infiltrates, nor pleural effusions. 3. Developmental aberrant right subclavian artery is again noted. 4. Evidence of previous abdominal wall mesh repair. There is also a defect in the lateral right abdominal wall with outpouching of intra-abdominal fat but this does not contain bowel loops and there is no evidence of bowel obstruction. 5. Previous cholecystectomy. The biliary tree is not dilated. 6. Calcified uterine fibroids. RADIATION DOSE DELIVERED: 1,381.04mGy.cm Total DLP DATA REPOSITORY: All CT scans at this facility are submitted to the National Radiology Data Registry (NRDR) Dose Index Registry (DIR) with the [employer] (ACR). RADIATION OPTIMIZATION: All CT scans at this facility use at least one of these dose optimization techniques: automated exposure control; mA and/or kV adjustment per patient size (includes targeted exams where dose is matched to clinical indication); or iterative reconstruction.
[2025-10-13] MEDS: Barium Sulfate 2% W/V-Creamy Vanilla Smoothie 450 ML BTL PO (13:08)
[2025-10-13] MEDS: Barium Sulfate 2% W/V-Berry Smoothie 450 ML BTL PO (13:08)
[2025-10-13] MEDS: Omnipaque 350 MG/ML 100 ML BTL IJ (15:26)
[2025-10-13] MEDS: Normal Saline Flush 10 ML SYR IVP (15:26)
[2025-10-13] MEDS: Normal Saline - Diluent 50 ML VIAL IJ (15:26)
== END ==
LOC: DI 00:01
PROVIDERS: PCP Family Medicine; Visit Provider Family Medicine
DX: R10.9 Unspecified abdominal pain (principal)
CPT/HCPCS: 71275; 74177; J3490

== ENCOUNTER 2025-10-18 16:43 | Outpatient (REF) | payer MEDICARE, OTHER, SELFPAY ==
[2025-10-18 20:21] LABS: ESR 13 mm/hr (0-30)
[2025-10-18 20:35] LABS: C-Reactive Protein < 0.50 mg/dL (<=0.50)
[2025-10-23 11:05] LABS: RNP Ab, IgG <6.0 CU (<20.0); Ro60 Ab, IgG <7.0 CU (<20.0); SS-A/Ro, IgG <2.3 CU (<20.0); SS-B (La) Ab, IgG <3.3 CU (<20.0)
[2025-10-23 11:33] LABS: Scl 70 Antibodies, IgG <0.2 U
[2025-10-23 12:55] LABS: ANCA Interpretation Negative (Negative)
== END 2025-10-18 16:44 | disposition home or self-care (01) ==
LOC: NCHCN 16:43
PROVIDERS: PCP Family Medicine; Visit Provider Family Medicine
DX: J98.4 Other disorders of lung (principal); R76.89 Other specified abnormal immunological findings in serum
CPT/HCPCS: 82164; 85652; 86255; 86038; 86140; 86225; 86235; 86431